=== PATIENT | male | born 1965 | race Caucasian/White ===

== ENCOUNTER → 2016-07-24 | Outpatient (CLI) | payer MEDICARE, OTHER ==
--- NOTE | 2016-07-24 14:26 | MR ---
EXAMINATION TYPE: MR cervical spine wo con DATE OF EXAM: 07/24/2016 1:11 PM COMPARISON: NONE HISTORY: Neck pain, cervicalgia, M54.2 TECHNIQUE: Multiplanar, multisequence images of the cervical spine were acquired. C2-C3: No evidence for degenerative disc disease. No disc bulge/herniation or protrusion. No Canal stenosis. Foramina are patent bilaterally. C3-C4: Foraminal encroachment is present right greater than left due to lateral extension of endplate disc complex. Pressure posterior disc bulge causes mild anterior mass effect on the thecal sac, mild central stenosis. C4-C5: There is a large left posterior paracentral disc herniation. Mass effect is present on the cer vical cord, there is severe central stenosis. Some right-sided foraminal encroachment is noted to the lateral extension of endplate disc complex greater than left. C5-C6: Uncovertebral joint hypertrophy, lateral extension of endplate disc complex causes anterior ma ss effect on the thecal sac, circumferential posterior extension results in some moderate central can al stenosis. Right-sided foraminal encroachment is present greater than left. C6-C7: No evidence for degenerative disc disease. No disc bulge/herniation or protrusion. No Canal stenosis. Foramina are patent bilaterally. C7-T1: No evidence for degenerative disc disease. No disc bulge/herniation or protrusion. No Canal stenosis. There is some facet arthropathy, mild posterior lateral encroachment on the thecal sac. Fo ramina are patent bilaterally. Cervical segments are intact. There is normal alignment. Cervical spinal cord is of normal signal. Craniovertebral junction relationships are within normal limits. There is multilevel spondylosis. C ervical vertebral bodies show preserved height and alignment. Endplate discogenic marrow signal wolf e is present with associated loss of disc height and signal of the intervertebral levels. Thoracic sc oliosis is suspected, due to head tilt of the cervical spine. IMPRESSION: Large posterior, left paracentral disc herniation at C4-5. Severe central canal stenosis. Multilevel degenerative changes and foraminal encroachment as described. Thoracic scoliosis. Additional findings above.
== END | disposition home or self-care (01) ==
LOC: RADMRIMAIN 12:44
PROVIDERS: ATTEND Family Medicine
DX: M48.02 Spinal stenosis, cervical region (principal); M50.221 Other cervical disc displacement at C4-C5 level; M47.812 Spondylosis without myelopathy or radiculopathy, cervical region; M41.9 Scoliosis, unspecified
CPT/HCPCS: 72141

== ENCOUNTER → 2016-09-05 | Outpatient (CLI) | payer MEDICARE, OTHER ==
[~2016-09-05] MED LIST: REGADENOSON 0.4 MG/5 ML SYRINGE IV ONE
--- NOTE | 2016-09-05 12:53 | EST ---
DATE OF SERVICE: 09/05/2016 AGE: 51Y SEX: M HT: 6'3" WT: 260 lbs. Protocol Rigoberto: Other: Lexiscan Cardiolite Stage: Dur. of Exercise: *Heart Rate Blood Pressure *Rest: 100 Rest: 110/77 * *Max. Achieved: 110 Maximum BP: 119/76 85% PMHR: 100% PMHR: *METS: INDICATIONS: MEDICATIONS: Patient was given Lexiscan injection over a period of 15 seconds. Peak heart rate of 110 was achieved. Maximum blood pressure 119/76 mmHg was noted. EKG shows normal sinus rhythm with normal IA interval and QRS duration and normal ST-T waves. No ST segment depression suggestive of ischemia is noted. The results of the nuclear study will follow.
--- NOTE | 2016-09-05 13:35 | NM ---
EXAMINATION TYPE: NM stress lexiscan cardiolite DATE OF EXAM: 09/05/2016 11:27 AM COMPARISON: Prior nuclear medicine cardiac SPECT dated October 2012 HISTORY: Abnormal EKG TECHNIQUE: After the intravenous administration of 10.6 mCi Tc 99m Sestamibi - Cardiolite resting SP ECT images acquired 45 minutes post injection. The patient received 0.4mg Lexiscan, 25.8 mCi Tc 99m Sestamibi - Stress images obtained [address] injection FINDINGS: Review of stress and rest SPECT images demonstrates no distinct perfusion abnormality. Gated analysi s shows normal wall motion with an estimated left ventricular ejection fraction of 58 %. IMPRESSION: No scintigraphic evidence for reversible ischemia.
== END | disposition home or self-care (01) ==
LOC: RADNMMAIN 08:46
PROVIDERS: ATTEND Family Medicine
DX: R94.31 Abnormal electrocardiogram [ECG] [EKG] (principal)
CPT/HCPCS: 93017; 78452; A9500; J2785

== ENCOUNTER 2016-09-11 16:46 | Emergency (ER) | payer MEDICARE, OTHER ==
[2016-09-11] MEDS ORDERED: NALOXONE 0.4 MG/ML 1 ML VIAL IM STA ×2 (17:53→18:38)
--- NOTE | 2016-09-11 18:01 | ED ---
General Adult HPI - General Chief complaint: Extremity Injury, Lower Stated complaint: fall Time Seen by Provider: 09/11/16 17:45 Source: patient, RN notes reviewed Mode of arrival: wheelchair Limitations: no limitations - History of Present Illness Initial comments: Patient's a 51-year-old male who presents emergency room today with chief complaint of injury to the left ankle. History provided by his 's at bedside. Patient currently sleeping in wheelchair. States he had a recent surgery with fusion. States he does take Percocet at home. States he took 2 Percocet. Patient is arousable but very somnolent. Patient has no obvious pain to the left ankle on palpation. he unable answering questions currently. - Related Data Home Medications Medication Instructions Recorded Confirmed DULoxetine HCL [Cymbalta] 60 mg PO BID 12/05/13 09/11/16 QUEtiapine [SEROquel] 800 mg PO HS 12/05/13 09/11/16 Dulaglutide [Trulicity] 0.75 mg SQ TH 01/08/16 09/11/16 Atorvastatin [Lipitor] 20 mg PO DAILY 09/11/16 09/11/16 Dicyclomine [Bentyl] 20 mg PO TID 09/11/16 09/11/16 LORazepam [Ativan] 1 mg PO TID 09/11/16 09/11/16 Levothyroxine Sodium [Synthroid] 150 mcg PO DAILY 09/11/16 09/11/16 Metoprolol Tartrate [Lopressor] 25 mg PO TID 09/11/16 09/11/16 OXcarbazepine [Trileptal] 300 mg PO BID 09/11/16 09/11/16 Omeprazole 20 mg PO DAILY 09/11/16 09/11/16 Ranitidine HCl 300 mg PO HS 09/11/16 09/11/16 metFORMIN HCL [Glucophage] 1,000 mg PO BID 09/11/16 09/11/16 oxyCODONE-APAP 10-325MG [Percocet 1 - 2 tab PO Q4H PRN 09/11/16 09/11/16 10-325 mg] rOPINIRole HCL [Requip] 5 mg PO HS 09/11/16 09/11/16 Previous Rx's Medication Instructions Recorded Insulin Glargine [Lantus] 70 unit SQ DAILY@1400 vial 01/10/16 Pregabalin [Lyrica] 100 mg PO BID cap 01/10/16 Amoxicillin/Potassium Clav 1 each PO Q12HR #20 tab 09/11/16 [Augmentin 875-125 Tablet] Allergies Allergy/AdvReac Type Severity Reaction Status Date / Time ibuprofen [From Motrin] Allergy Mild Confusion Verified 09/11/16 18:46 risperidone [From Risperdal] Allergy Rash/Hives Verified 09/11/16 18:45 Review of Systems ROS Statement: Those systems with pertinent positive or pertinent negative responses have been documented in the HPI. ROS Other: All systems not noted in ROS Statement are negative. 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 Chronic wound to the left foot subsequently healed, heart arrythmia History of Any Multi-Drug Resistant Organisms: MRSA Date of last positivie culture/infection: 01/15/2014 MDRO Source:: Face Past Surgical History: Cholecystectomy, Orthopedic Surgery Additional Past Surgical History / Comment(s): Biopsy OF LUNG NEG, EGD by Dr. Cantu in 2012 showing esophagitis, neck Past Anesthesia/Blood Transfusion Reactions: No Reported Reaction Past Psychological History: ADD/ADHD, Bipolar, Depression Smoking Status: Current every day smoker Past Alcohol Use History: None Reported Additional Past Alcohol Use History / Comment(s): Patient history of smoking up to 3 packs per day and has smoked for over 36 years. Patient denies any alcohol use. He smokes marijuana occasionally. Patient is currently on disability due to his bipolar disorder. Patient is currently living at homewith his girlfriend. He has 4 children with her. Past Drug Use History: Marijuana Additional Drug Use History / Comment(s): pt UDS positive for marijuna, denies use - Past Family History Father Family Medical History: Congestive Heart Failure (CHF) Sister(s) Family Medical History: Congestive Heart Failure (CHF) Brother(s) Additional Family Medical History / Comment(s): He has one half-brother with no major medical problems. Mother Family Medical History: No Reported History, Cancer, Congestive Heart Failure ( CHF) General Exam - General Exam Comments Initial Comments: General: The patient is awake and alert, in no distress, and does not appear acutely ill. Patient sitting a wheelchair slepping. Patient is rales but immediately falls back asleep. Eye: Pupils are equal, round and reactive to light, extra-ocular movements are intact. No nystagmus. There is normal conjunctiva bilaterally. No signs of icterus. Ears, nose, mouth and throat: There are moist mucous membranes and no oral lesions. Neck: The neck is supple, there is no tenderness or JVD. Cardiovascular: There is a regular rate and rhythm. No murmur, rub or gallop is appreciated. Respiratory: Lungs are clear to auscultation, respirations are non-labored, breath sounds are equal. No wheezes, stridor, rales, or rhonchi. Gastrointestinal: Soft, non-distended, non-tender abdomen without masses or organomegaly noted. There is no rebound or guarding present. No CVA tenderness. Bowel sounds are unremarkable. Musculoskeletal: Normal ROM, no tenderness. Strength 5/5.Pulses equal bilaterally 2+. Neurological: There are no obvious motor or sensory deficits. Coordination appears grossly intact. Speech is normal. Skin: Skin is warm and dry and no rashes or lesions are noted. Limitations: no limitations Course Vital Signs 09/11/16 09/11/16 09/11/16 17:09 18:46 18:49 Temperature 98 F 97.8 F Pulse Rate 111 H 76 Respiratory 20 10 L Rate Blood Pressure 98/55 79/53 O2 Sat by Pulse 90 L 88 L 93 L Oximetry 09/11/16 09/11/16 09/11/16 19:05 20:31 21:00 Temperature Pulse Rate 97 68 90 Respiratory 12 16 16 Rate Blood Pressure 101/56 115/70 108/61 O2 Sat by Pulse 93 L 97 97 Oximetry - Reevaluation(s) Reevaluation #1: 09/11/16 18:10 Patient reexamined at this time after 0.4 mg of IM Narcan. Patient wore arousable. Wakes up immediately to voice. Still sleepy and was fall back asleep. at bedside states that she just gave him 2 of his Percocet in the waiting room prior to being seen. States it a 's. States she controls his medication. States does have Ativan the afternoon as well. Patient admits that he rolled left ankle getting out of bed this morning. He states he felt a "pop". Patient admits to pain over the anterior aspect of the ankle. He denies any other symptoms currently. states that he was his normal self throughout the day up until just taking this Percocet became very tired and sleepy. 09/11/16 18:38 Contacted by radiology at this time he did have in the radiology suite perform x -rays. Since having a difficult time is continues fall asleep and unable to hold foot and position. Patient taking Bactrim room will be given 0.4 mg of Narcan once again. 09/11/16 18:50 Patient reexamined at this time after second dose of Narcan. More arousable at this time. Blood pressure currently is 58. Pulse ox didn't only present. Patient started on oxygen here in the emergency room. CT of head and neck along with labs currently pending. Patient will be monitored closely. 09/11/16 22:20 Patient reexamined at this time is alert and awake sitting at bedside. Patient' s laboratory here in the emergency room. Patient has been examined for over 5 hours here in the ER. At this times feeling much better. He states it was calf pain. All sounds was obtained which was negative. X-rays are negative. CT negative for any acute abnormalities shows evidence for sinusitis which she does admit to has congestion. No tenderness over the mastoids. Patient will be discharged home on antibiotics cover for sinus infection. Advised follow-up with his family doctor in surgeon over the next 2 days. Advised return to emergency room if any symptoms increase worsen or for any other concerns. EKG Findings - EKG Comments: EKG Findings:: EKG performed at 191: Shows normal sinus rhythm with incomplete right bundle branch block. Ventricular rate 95 bpm FL interval 192. QRS 110. QT/QTC 358/449. No acute ST change Medical Decision Making - Lab Data Result diagrams: 09/11/16 19:00 09/11/16 19:00 Lab Results 09/11/16 09/11/16 09/11/16 Range/Units 19:00 19:00 19:00 WBC 11.5 H (3.8-10.6) k/uL RBC 4.48 (4.30-5.90) m/uL Hgb 14.2 (13.0-17.5) gm/dL Hct 41.3 (39.0-53.0) % MCV 92.2 (80.0-100.0) fL MCH 31.7 (25.0-35.0) pg MCHC 34.4 (31.0-37.0) g/dL RDW 14.4 (11.5-15.5) % Plt Count 163 (150-450) k/uL Neutrophils % 67 % Lymphocytes % 20 % Monocytes % 7 % Eosinophils % 2 % Basophils % 1 % Neutrophils # 7.7 (1.3-7.7) k/uL Lymphocytes # 2.3 (1.0-4.8) k/uL Monocytes # 0.8 (0-1.0) k/uL Eosinophils # 0.3 (0-0.7) k/uL Basophils # 0.1 (0-0.2) k/uL PT (9.0-12.0) sec INR (<1.1) APTT (22.0-30.0) sec Sodium 139 (137-145) mmol/L Potassium 4.6 (3.5-5.1) mmol/L Chloride 100 (98-107) mmol/L Carbon Dioxide 29 (22-30) mmol/L Anion Gap 10 mmol/L BUN 17 (9-20) mg/dL Creatinine 1.36 H (0.66-1.25) mg/dL Est GFR (MDRD) Af Amer >60 (>60 ml/min/1.73 sqM) Est GFR (MDRD) Non-Af 55 (>60 ml/min/1.73 sqM) Glucose 117 H (74-99) mg/dL Calcium 9.1 (8.4-10.2) mg/dL Total Bilirubin 1.0 (0.2-1.3) mg/dL AST 35 (17-59) U/L ALT 33 (21-72) U/L Alkaline Phosphatase 158 H (38-126) U/L Total Creatine Kinase 111 (55-170) U/L CK-MB (CK-2) 1.2 (0.0-2.4) ng/mL CK-MB (CK-2) Rel Index 1.1 Troponin I <0.012 (0.000-0.034) ng/mL Total Protein 6.8 (6.3-8.2) g/dL Albumin 4.1 (3.5-5.0) g/dL 09/11/16 Range/Units 19:00 WBC (3.8-10.6) k/uL RBC (4.30-5.90) m/uL Hgb (13.0-17.5) gm/dL Hct (39.0-53.0) % MCV (80.0-100.0) fL MCH (25.0-35.0) pg MCHC (31.0-37.0) g/dL RDW (11.5-15.5) % Plt Count (150-450) k/uL Neutrophils % % Lymphocytes % % Monocytes % % Eosinophils % % Basophils % % Neutrophils # (1.3-7.7) k/uL Lymphocytes # (1.0-4.8) k/uL Monocytes # (0-1.0) k/uL Eosinophils # (0-0.7) k/uL Basophils # (0-0.2) k/uL PT 10.7 (9.0-12.0) sec INR 1.1 (<1.1) APTT 22.6 (22.0-30.0) sec Sodium (137-145) mmol/L Potassium (3.5-5.1) mmol/L Chloride (98-107) mmol/L Carbon Dioxide (22-30) mmol/L Anion Gap mmol/L BUN (9-20) mg/dL Creatinine (0.66-1.25) mg/dL Est GFR (MDRD) Af Amer (>60 ml/min/1.73 sqM) Est GFR (MDRD) Non-Af (>60 ml/min/1.73 sqM) Glucose (74-99) mg/dL Calcium (8.4-10.2) mg/dL Total Bilirubin (0.2-1.3) mg/dL AST (17-59) U/L ALT (21-72) U/L Alkaline Phosphatase (38-126) U/L Total Creatine Kinase (55-170) U/L CK-MB (CK-2) (0.0-2.4) ng/mL CK-MB (CK-2) Rel Index Troponin I (0.000-0.034) ng/mL Total Protein (6.3-8.2) g/dL Albumin (3.5-5.0) g/dL Disposition Clinical Impression: Opiate overdose, Acute sinusitis, Leg pain Disposition: HOME SELF-CARE Condition: Good Instructions: Sinusitis (ED) Additional Instructions: Please use only one tab of Percocet every 6 hours. Please follow-up with family doctor in the next 2 days of symptoms have not improved. Please return to emergency room if the symptoms increase or worsen or for any other concerns. Prescriptions: Amoxicillin/Potassium Clav [Augmentin 185-125 Tablet] 1 each PO Q12HR #20 tab Time of Disposition: 22:22
[2016-09-11] MEDS ORDERED: SODIUM CHLORIDE 0.9% 1,000 ML IV STA ×2 (18:56)
[2016-09-11 19:22] LABS: Basophils # (A) 0.1 k/uL (0-0.2); Basophils % (A) 1 %; CH 33.1; CHCM 36.1; Eosinophils # (A) 0.3 k/uL (0-0.7); Eosinophils % (A) 2 %; HCT 41.3 % (39.0-53.0); HDW 3.24; HGB 14.2 gm/dL (13.0-17.5); Luc # (Auto) 0.39; Luc % (Auto) 3; Lymphocytes # (A) 2.3 k/uL (1.0-4.8); Lymphocytes % (A) 20 %; MCH 31.7 pg (25.0-35.0); MCHC 34.4 g/dL (31.0-37.0); MCV 92.2 fL (80.0-100.0); Mean Platelet Volume 7.4; Monocytes # (A) 0.8 k/uL (0-1.0); Monocytes % (A) 7 %; Neutrophils # (A) 7.7 k/uL (1.3-7.7); Neutrophils % (A) 67 %; RBC 4.48 m/uL (4.30-5.90); RDW 14.4 % (11.5-15.5); WBC 11.5 k/uL (3.8-10.6); WBC (Perox) 10.98
[2016-09-11 19:30] LABS: INR 1.1 (<1.1); Partial Thromboplastin Time 22.6 sec (22.0-30.0); Prothrombin Time 10.7 sec (9.0-12.0)
[2016-09-11 19:47] LABS: Creatine Kinase 111 U/L (55-170)
[2016-09-11 19:49] LABS: ALT 33 U/L (21-72); AST 35 U/L (17-59); Alkaline Phosphatase 158 U/L (38-126); Anion Gap 10 mmol/L; Blood Urea Nitrogen 17 mg/dL (9-20); Calcium 9.1 mg/dL (8.4-10.2); Carbon Dioxide 29 mmol/L (22-30); Chloride 100 mmol/L (98-107); Glucose 117 mg/dL (74-99); Non-African American GFR(MDRD) 55 (>60 ml/min/1.73 sqM); Potassium 4.6 mmol/L (3.5-5.1); Sodium 139 mmol/L (137-145); Total Protein 6.8 g/dL (6.3-8.2)
[2016-09-11 20:00] LABS: Creatine Kinase MB 1.2 ng/mL (0.0-2.4); Troponin I <0.012 ng/mL (0.000-0.034)
--- NOTE | 2016-09-11 20:05 | XR ---
EXAMINATION TYPE: XR ankle complete LT DATE OF EXAM: 09/11/2016 8:01 PM COMPARISON: NONE HISTORY: Fall and pain TECHNIQUE: 3 views FINDINGS: Ankle mortise is anatomic. I see no fracture nor dislocation. Subtalar joint is normal. IMPRESSION: Negative left ankle exam.
--- NOTE | 2016-09-11 20:06 | XR ---
EXAMINATION TYPE: XR foot complete LT DATE OF EXAM: 09/11/2016 8:01 PM COMPARISON: NONE HISTORY: Fall and pain TECHNIQUE: 3 views FINDINGS: There is mild hallux valgus. I see no fracture nor dislocation. Metatarsals are intact. IMPRESSION: No acute abnormality of the left foot.
--- NOTE | 2016-09-11 20:09 | XR ---
EXAMINATION TYPE: XR chest 2V DATE OF EXAM: 09/11/2016 8:01 PM COMPARISON: 09/29/2014 HISTORY: Fall and chest pain TECHNIQUE: Frontal and lateral views of the chest are obtained. FINDINGS: There is patchy linear density in the mid lung newsome. Heart size is normal. There is no p neumothorax. There is no heart failure. There are no hilar masses. There is no sign of pleural effusi on. There is apparent old lateral healed right rib fracture. IMPRESSION: Bilateral pulmonary scarring and atelectasis appears worse than old exam. Normal heart. N o pneumothorax.
[2016-09-11 20:31] VITALS: RESP 16
--- NOTE | 2016-09-11 21:08 | CT ---
EXAMINATION TYPE: CT brain rajat lambert DATE OF EXAM: 09/11/2016 8:51 PM COMPARISON: NONE HISTORY: Altered mental status and neck pain. Hx of cervical fusion x2 days ago. CT DLP: 1826.1 mGycm Automated exposure control for dose reduction was used. TECHNIQUE: CT scan of the head and cervical spine are performed without contrast. FINDINGS: There is no evidence of intracranial hemorrhage. There is no mass effect nor midline shif t. Ventricles have normal size. The calvarium is intact. There is mild mucosal thickening in ethmoid air cells. There is incomplete pneumatization of the right mastoid air cells. The cervical vertebra are fairly normal alignment. There is an anterior fusion surgery at C4-5 with a disc prosthesis. There is some narrowing at C5-6 C6-7 disc spaces with spur formation. Facet joints are intact. Skull base is intact. There is no evidence of fracture. IMPRESSION: There is evidence of ethmoid and right side mastoid sinusitis. No acute intracranial abnormality. Spondylotic changes in the lower cervical spine. No fracture seen.
--- NOTE | 2016-09-11 22:04 | US ---
EXAMINATION TYPE: US venous doppler duplex LE LT DATE OF EXAM: 09/11/2016 9:52 PM COMPARISON: Prior in PACS CLINICAL HISTORY: Pain after patient fell this evening . SIDE PERFORMED: Left VESSELS IMAGED: External Iliac Vein (EIV) Common Femoral Vein Deep Femoral Vein Greater Saphenous Vein * Femoral Vein Popliteal Vein Small Saphenous Vein * Proximal Calf Veins (* superficial vessels) TECHNOLOGIST IMPRESSION: Left Leg: Negative for DVT IMPRESSION: Normal exam. No evidence of deep venous thrombosis in the left leg.
[2016-09-11 22:38] VITALS: BP 112/68; PULSE 88; TEMP 98
== END 2016-09-11 22:38 | disposition home or self-care (01) ==
LOC: EC 16:46
DX: T40.2X1A Poisoning by other opioids, accidental (unintentional), initial encounter (principal); J32.2 Chronic ethmoidal sinusitis; M25.572 Pain in left ankle and joints of left foot; E11.9 Type 2 diabetes mellitus without complications; E07.9 Disorder of thyroid, unspecified; F31.9 Bipolar disorder, unspecified; E78.5 Hyperlipidemia, unspecified; I10 Essential (primary) hypertension; G47.33 Obstructive sleep apnea (adult) (pediatric); F17.200 Nicotine dependence, unspecified, uncomplicated; Z88.8 Allergy status to other drugs, medicaments and biological substances; Z79.4 Long term (current) use of insulin; Z86.14 Personal history of Methicillin resistant Staphylococcus aureus infection; Z79.84 Long term (current) use of oral hypoglycemic drugs; Z79.899 Other long term (current) drug therapy; X50.1XXA Overexertion from prolonged static or awkward postures, initial encounter; Y93.89 Activity, other specified; Y92.013 Bedroom of single-family (private) house as the place of occurrence of the external cause
CPT/HCPCS: 36415; 93005; 80053; 82550; 82553; 84484; 85025; 85610; 85730; 71020; 73610; 73630; 93971; 72125; 70450; 99284; 96372 ×2; 96360; 96361 ×2; J2310

== ENCOUNTER 2016-09-12 10:23 | Inpatient (IN) | payer MEDICARE, OTHER ==
--- NOTE | 2016-09-12 11:30 | ED ---
Lower Extremity Injury HPI - General Chief Complaint: Extremity Injury, Lower Stated Complaint: Poss Broken Leg Time Seen by Provider: 09/12/16 11:10 Source: patient, EMS Mode of arrival: EMS Limitations: no limitations - History of Present Illness Initial Comments: 51-year-old male patient with a past medical history significant for cervical fusion on 09/09/2016 is against him and she Department complaining of right lower extremity pain after experiencing a fall at home today. Patient has been mildly weak since the surgery on Thursday and was being assisted to the restroom by his and son when he stumbled and started to fall backwards. His son did keep him from falling to the ground, but during the fall his leg "snapped" and he had immediate onset of pain. She denies any other injuries from fall. He denies any headache, dizziness, chest pain, back pain, abdominal pain, nausea , vomiting. Patient denies any fever, chills, urinary symptoms, constipation, or diarrhea. Patient denies any paresthesias. GCS is 15. - Related Data Home Medications Medication Instructions Recorded Confirmed DULoxetine HCL [Cymbalta] 60 mg PO BID 12/05/13 09/12/16 QUEtiapine [SEROquel] 800 mg PO HS 12/05/13 09/12/16 Dulaglutide [Trulicity] 0.75 mg SQ TH 01/08/16 09/12/16 Atorvastatin [Lipitor] 20 mg PO DAILY 09/11/16 09/12/16 Dicyclomine [Bentyl] 20 mg PO TID 09/11/16 09/12/16 LORazepam [Ativan] 1 mg PO TID 09/11/16 09/12/16 Levothyroxine Sodium [Synthroid] 150 mcg PO DAILY 09/11/16 09/12/16 Metoprolol Tartrate [Lopressor] 25 mg PO TID 09/11/16 09/12/16 OXcarbazepine [Trileptal] 300 mg PO BID 09/11/16 09/12/16 Omeprazole 20 mg PO DAILY 09/11/16 09/12/16 Ranitidine HCl 300 mg PO HS 09/11/16 09/12/16 metFORMIN HCL [Glucophage] 1,000 mg PO BID 09/11/16 09/12/16 oxyCODONE-APAP 10-325MG [Percocet 1 - 2 tab PO Q4H PRN 09/11/16 09/12/16 10-325 mg] rOPINIRole HCL [Requip] 5 mg PO HS 09/11/16 09/12/16 Amoxicillin/Potassium Clav 1 tab PO Q12HR 09/12/16 09/12/16 [Augmentin 875-125 Tablet] Previous Rx's Medication Instructions Recorded Insulin Glargine [Lantus] 70 unit SQ DAILY@1400 vial 01/10/16 Pregabalin [Lyrica] 100 mg PO BID cap 01/10/16 Allergies Allergy/AdvReac Type Severity Reaction Status Date / Time ibuprofen [From Motrin] Allergy Mild Confusion Verified 09/12/16 10:46 risperidone [From Risperdal] Allergy Rash/Hives Verified 09/12/16 10:46 Review of Systems ROS Statement: Those systems with pertinent positive or pertinent negative responses have been documented in the HPI. ROS Other: All systems not noted in ROS Statement are negative. 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 Chronic wound to the left foot subsequently healed, heart arrythmia History of Any Multi-Drug Resistant Organisms: MRSA Date of last positivie culture/infection: 01/15/2014 MDRO Source:: Face Past Surgical History: Cholecystectomy, Orthopedic Surgery Additional Past Surgical History / Comment(s): Biopsy OF LUNG NEG, EGD by Dr. Cantu in 2012 showing esophagitis, neck, C3/C4 fusion Past Anesthesia/Blood Transfusion Reactions: No Reported Reaction Past Psychological History: ADD/ADHD, Bipolar, Depression Smoking Status: Current every day smoker Past Alcohol Use History: None Reported Additional Past Alcohol Use History / Comment(s): Patient history of smoking up to 3 packs per day and has smoked for over 36 years. Patient denies any alcohol use. He smokes marijuana occasionally. Patient is currently on disability due to his bipolar disorder. Patient is currently living at homewith his girlfriend. He has 4 children with her. Past Drug Use History: Marijuana Additional Drug Use History / Comment(s): pt UDS positive for marijuna, denies use - Past Family History Father Family Medical History: Congestive Heart Failure (CHF) Sister(s) Family Medical History: Congestive Heart Failure (CHF) Brother(s) Additional Family Medical History / Comment(s): He has one half-brother with no major medical problems. Mother Family Medical History: No Reported History, Cancer, Congestive Heart Failure ( CHF) General Exam Limitations: no limitations General appearance: alert, in no apparent distress Head exam: Present: atraumatic, normocephalic Eye exam: Present: normal appearance, PERRL Pupils: Present: normal accommodation ENT exam: Present: normal exam, normal oropharynx, mucous membranes moist, TM's normal bilaterally Neck exam: Present: normal inspection, other (Steri-Strips noted to anterior neck incision. Incision exhibits no redness or drainage, and is well approximated.). Absent: tenderness, full ROM, lymphadenopathy Respiratory exam: Present: wheezes (Course expiratory). Absent: respiratory distress, rales, chest wall tenderness, accessory muscle use Cardiovascular Exam: Present: regular rate, normal rhythm, normal heart sounds. Absent: systolic murmur, diastolic murmur, rubs, gallop, clicks GI/Abdominal exam: Present: soft, normal bowel sounds. Absent: distended, tenderness, guarding, rebound, rigid Extremities exam: Present: tenderness (Patient tender over the both the right medial or lateral malleolus. Patient tender over the right tibia and fibula.), normal capillary refill, pedal edema (1+ edema lateral). Absent: full ROM ( Patient unable to extend the right ankle.) Back exam: Present: normal inspection. Absent: tenderness Neurological exam: Present: alert, CN II-XII intact. Absent: oriented X3 (Into to person and place only.) Psychiatric exam: Present: normal mood, flat affect Skin exam: Present: warm, dry, intact Course Vital Signs 09/12/16 10:26 Temperature 97.6 F Pulse Rate 108 H Respiratory 20 Rate Blood Pressure 131/76 O2 Sat by Pulse 93 L Oximetry Procedures - Orthopedic Splinting/Casting Injury #1 Side: right Lower Extremity Injury Location: lower leg Lower Extremity Immobilizer: posterior splint (Right leg, long OCL, neurovascular status intact pre-and post-splinting.) Injury #2 Side: left Lower Extremity Injury Location: lower leg Lower Extremity Immobilizer: posterior splint (Short leg neurovascular intact before and after procedure) Disposition Clinical Impression: Closed multiple fractures of both lower limbs Disposition: ADMITTED IP TO THIS HOSP Condition: Fair
--- NOTE | 2016-09-12 12:22 | XR ---
EXAMINATION TYPE: XR tibia fibula RT DATE OF EXAM: 09/12/2016 12:15 PM COMPARISON: NONE HISTORY: Pain TECHNIQUE: Two views are submitted. FINDINGS: There is a comminuted spiral fracture of the distal diaphysis of the tibia with displacement. There is a comminuted fracture involving the proximal fibula which is only partially imaged. Soft tis javon edema noted. Hypertrophic changes involving the medial malleolus and a well-corticated density involving the later al malleolus suggestive of remote trauma. IMPRESSION: 1. Comminuted displaced proximal fibular fracture. 2. Comminuted spiral fracture distal diaphysis tibia with displacement
--- NOTE | 2016-09-12 12:22 | XR ---
EXAMINATION TYPE: XR ankle complete RT DATE OF EXAM: 09/12/2016 12:15 PM COMPARISON: NONE HISTORY: Pain FINDINGS: Three views of the ankle demonstrate spur extending off the medial malleolus. Well-corticated density involving the distal fibula compatible with previous trauma. There is a spiral fracture of the dista l tibia only partially included on the ankle series. IMPRESSION: 1. Distal displaced tibial fracture
[2016-09-12] MEDS ORDERED: HYDROcodone/APAP 7.5-325MG 1 EACH TAB PO PRN ×2 (13:14)
[2016-09-12] MEDS ORDERED: MORPHINE SULFATE 2 MG/ML SYRINGE IVP STA (13:15)
--- NOTE | 2016-09-12 13:22 | XR ---
EXAMINATION TYPE: XR tibia fibula LT DATE OF EXAM: 09/12/2016 1:12 PM COMPARISON: NONE HISTORY: Pain TECHNIQUE: Two views are submitted. FINDINGS: There is a linear nondisplaced fracture through the proximal diaphysis of the fibula. Remaining osseo us structures intact. IMPRESSION: 1. Linear nondisplaced fracture proximal diaphysis fibula.
[2016-09-12] MEDS ORDERED: NALOXONE 0.4 MG/ML 1 ML VIAL IV PRN (13:38)
[2016-09-12 14:15] LABS: Basophils # (A) 0.1 k/uL (0-0.2); Basophils % (A) 1 %; CH 32.7; CHCM 35.7; Eosinophils # (A) 0.2 k/uL (0-0.7); Eosinophils % (A) 2 %; HCT 39.1 % (39.0-53.0); HDW 3.29; HGB 13.8 gm/dL (13.0-17.5); Luc # (Auto) 0.32; Luc % (Auto) 3; Lymphocytes # (A) 1.1 k/uL (1.0-4.8); Lymphocytes % (A) 11 %; MCH 32.7 pg (25.0-35.0); MCHC 35.4 g/dL (31.0-37.0); MCV 92.4 fL (80.0-100.0); Mean Platelet Volume 7.9; Monocytes # (A) 0.6 k/uL (0-1.0); Monocytes % (A) 6 %; Neutrophils # (A) 7.7 k/uL (1.3-7.7); Neutrophils % (A) 78 %; RBC 4.23 m/uL (4.30-5.90); RDW 14.6 % (11.5-15.5); WBC 9.9 k/uL (3.8-10.6); WBC (Perox) 10.11
[2016-09-12 14:22] LABS: ALT 36 U/L (21-72); AST 44 U/L (17-59); Alkaline Phosphatase 187 U/L (38-126); Anion Gap 12 mmol/L; Blood Urea Nitrogen 15 mg/dL (9-20); Calcium 8.9 mg/dL (8.4-10.2); Carbon Dioxide 27 mmol/L (22-30); Chloride 103 mmol/L (98-107); Glucose 108 mg/dL (74-99); Non-African American GFR(MDRD) >60 (>60 ml/min/1.73 sqM); Potassium 4.2 mmol/L (3.5-5.1); Sodium 142 mmol/L (137-145); Total Bilirubin 1.3 mg/dL (0.2-1.3); Total Protein 6.6 g/dL (6.3-8.2)
[2016-09-12 15:15] VITALS: BMI 32.5
[2016-09-12] MEDS ORDERED: ENOXAPARIN 40 MG/0.4 ML SYRINGE SQ STA (15:23)
[2016-09-12] MEDS: MORPHINE SULFATE 4 MG/ML SYRINGE IV PRN ×2 (15:44→19:39)
[2016-09-12 16:17] LABS: Prothrombin Time 10.2 sec (9.0-12.0)
[2016-09-12 17:22] LABS: Glucose,Whole Blood 99 mg/dL (75-99)
[2016-09-12] MEDS: DICYCLOMINE 20 MG TAB PO SCH ×2 (17:24→22:17)
[2016-09-12] MEDS: METOPROLOL TARTRATE 25 MG TAB PO SCH ×2 (17:24→22:17)
[2016-09-12] MEDS: LORazepam 1 MG TAB PO SCH ×2 (17:24→22:17)
[2016-09-12] MEDS: metFORMIN 500 MG TAB PO SCH (17:25)
[2016-09-12] MEDS: INSULIN LISPRO (humaLOG) 300 UNIT/3 ML VIAL SQ SCH ×2 (17:34→22:15)
[2016-09-12] MEDS: SODIUM CHLORIDE 0.9% 1,000 ML IV SCH (17:34)
[2016-09-12 18:45] LABS: Hemoglobin A1C 7.1 % (4.2-6.1)
[2016-09-12 21:59] LABS: Glucose,Whole Blood 96 mg/dL (75-99)
[2016-09-12] MEDS: DULoxetine HCL 60 MG CAPSULE.DR PO SCH (22:15)
[2016-09-12] MEDS: AMOXIC-POT CLAV 875-125MG 1 EACH TAB PO SCH (22:15)
[2016-09-12] MEDS: FAMOTIDINE 20 MG TAB PO SCH (22:15)
[2016-09-12] MEDS: QUEtiapine 400 MG TAB PO SCH (22:16)
[2016-09-12] MEDS: OXcarbazepine 300 MG TAB PO SCH (22:16)
[2016-09-12] MEDS: PREGABALIN 100 MG CAP PO SCH (22:16)
[2016-09-13] MEDS: oxyCODONE-APAP 10-325MG 1 EACH TAB PO PRN ×3 (00:25→19:55)
[2016-09-13] MEDS: MORPHINE SULFATE 4 MG/ML SYRINGE IV PRN ×3 (01:14→13:41)
[2016-09-13] MEDS: LEVOTHYROXINE 75 MCG TAB PO SCH (05:59)
[2016-09-13 06:54] LABS: Glucose,Whole Blood 122 mg/dL (75-99)
[2016-09-13] MEDS: PANTOPRAZOLE 40 MG TABLET PO SCH (07:34)
[2016-09-13] MEDS: AMOXIC-POT CLAV 875-125MG 1 EACH TAB PO SCH ×2 (07:34→20:55)
[2016-09-13] MEDS: metFORMIN 500 MG TAB PO SCH ×2 (07:34→18:11)
[2016-09-13] MEDS: INSULIN LISPRO (humaLOG) 300 UNIT/3 ML VIAL SQ SCH ×4 (07:34→20:29)
[2016-09-13] MEDS: ATORVASTATIN 20 MG TAB PO SCH (07:34)
[2016-09-13] MEDS: PREGABALIN 100 MG CAP PO SCH ×2 (07:35→20:55)
[2016-09-13] MEDS: LORazepam 1 MG TAB PO SCH ×3 (07:35→23:11)
[2016-09-13] MEDS: DULoxetine HCL 60 MG CAPSULE.DR PO SCH ×2 (07:35→20:19)
[2016-09-13] MEDS: OXcarbazepine 300 MG TAB PO SCH ×2 (07:35→20:18)
[2016-09-13] MEDS: DICYCLOMINE 20 MG TAB PO SCH ×3 (07:35→20:56)
[2016-09-13] MEDS: METOPROLOL TARTRATE 25 MG TAB PO SCH ×3 (07:40→20:19)
[2016-09-13] MEDS ORDERED: MIDAZOLAM 2 MG/2 ML VIAL ONE (08:21)
[2016-09-13] MEDS ORDERED: LACTATED RINGERS 1,000 ML IV ONE (08:21)
[2016-09-13] MEDS ORDERED: fentaNYL (PF) 50 MCG/ML 2 ML AMP ONE (08:21)
[2016-09-13] MEDS ORDERED: SODIUM CHLORIDE 0.9% 50 ML with ceFAZolin 2,000 MG IV ONE ×2 (08:31)
[2016-09-13] MEDS ORDERED: ceFAZolin 1,000 MG in SODIUM CHLORIDE 0.9% 1,000 ML IRRIGATION ONE (08:50)
[2016-09-13] MEDS ORDERED: diphenhydrAMINE 25 MG CAP PO PRN (09:40)
[2016-09-13] MEDS ORDERED: SENNOSIDES-DOCUSATE SODIUM 1 EACH TAB PO PRN (09:40)
--- NOTE | 2016-09-13 10:27 | XR ---
EXAMINATION TYPE: XR tibia fibula RT DATE OF EXAM: 09/13/2016 10:19 AM COMPARISON: 09/12/2016 HISTORY: Postop TECHNIQUE: 2 view submitted FINDINGS: Surgical change noted. IMPRESSION: Postop changes
[2016-09-13 10:38] LABS: Glucose,Whole Blood 124 mg/dL (75-99)
--- NOTE | 2016-09-13 10:58 | P.PN ---
Subjective Patient is currently gone for surgical intervention. Objective - Vital Signs Vital signs: Vital Signs Temp 97.8 F 09/13/16 07:00 Pulse 108 H 09/13/16 07:00 Resp 16 09/13/16 07:00 BP 131/84 09/13/16 07:00 Pulse Ox 93 L 09/13/16 07:00 Intake & Output 09/12/16 09/13/16 09/13/16 18:59 06:59 18:59 Intake Total 240 101 Output Total 700 300 Balance -700 240 -199 Weight 117.934 kg Intake: IV 240 101 Sodium Chloride 0.9% 1, 240 000 ml @ 20 mls/hr IV . Q24H [facility] Rx#:[id number] Output: Urine 700 300 Other: Voiding Method Urinal # Voids 1 1 - Labs CBC & Chem 7: 09/12/16 14:00 09/12/16 14:00 Labs: Abnormal Lab Results - Last 24 Hours (Table) 09/12/16 09/12/16 09/12/16 Range/Units 14:00 14:00 14:00 RBC 4.23 L (4.30-5.90) m/uL Plt Count 149 L (150-450) k/uL Glucose 108 H (74-99) mg/dL POC Glucose (mg/dL) (75-99) mg/dL Hemoglobin A1c 7.1 H (4.2-6.1) % Alkaline Phosphatase 187 H (38-126) U/L 09/13/16 Range/Units 06:51 RBC (4.30-5.90) m/uL Plt Count (150-450) k/uL Glucose (74-99) mg/dL POC Glucose (mg/dL) 122 H (75-99) mg/dL Hemoglobin A1c (4.2-6.1) % Alkaline Phosphatase (38-126) U/L
[2016-09-13 11:10] LABS: Glucose,Whole Blood 136 mg/dL (75-99)
[2016-09-13] MEDS: INSULIN GLARGINE 100 UNIT/ML 10 ML VIAL SQ SCH (15:17)
[2016-09-13] MEDS: ENOXAPARIN 40 MG/0.4 ML SYRINGE SQ SCH (16:25)
[2016-09-13] MEDS ORDERED: HYDROmorphone 1 MG/ML 1 ML SYRINGE IVP PRN ×2 (16:59)
[2016-09-13 17:16] LABS: Glucose,Whole Blood 160 mg/dL (75-99)
[2016-09-13] MEDS: ceFAZolin 2 GM in SODIUM CHLORIDE 0.9% 100 ML IVPB SCH ×2 (17:51→23:28)
[2016-09-13] MEDS: HYDROmorphone 1 MG/ML 1 ML SYRINGE IVP PRN ×2 (17:56→21:00)
[2016-09-13] MEDS: LACTATED RINGERS 1,000 ML IV SCH ×2 (19:21→20:29)
[2016-09-13] MEDS: SODIUM CHLORIDE 0.9% 1,000 ML IV SCH (19:21)
[2016-09-13 20:03] LABS: Glucose,Whole Blood 159 mg/dL (75-99)
[2016-09-13] MEDS: QUEtiapine 400 MG TAB PO SCH ×2 (20:18→20:57)
[2016-09-13] MEDS: FAMOTIDINE 20 MG TAB PO SCH (20:55)
--- NOTE | 2016-09-13 23:16 | P.CONS ---
History of Present Illness - Reason for Consult Consult date: 09/12/16 Medical mgmt. Requesting physician: Wesley Kilgore - Chief Complaint Fracture left Fibia, and Tibia, fall, recent history of cervical spine fusi - History of Present Illness 51-year-old mildly obese male one of Dr. Capone's patient with past medical history of diabetes, hypertension, hyperlipidemia, chronic liver disease , obstructive sleep apnea thyroid problem who had recent cervical spinal fusion who experience severe leg pain after a fall at home today 09/12/2016. Patient apparently has been weeks since surgery on Thursday has been using assisted to walk to the bathroom with his and son every so often he had the fall after he stumbled, he fell backward and felt his leg snap at the time he developed immediate increased pain and discomfort in the leg area was not able to stand up and walk complete weight on it. Patient ended up coming to the emergency department at [facility] where was seen and evaluated x-ray of the neck showed communicative spiral fracture of the distal diathesis of the TB a with displacement of the right side also there is communicative fracture involving the proximal fibula which only partially in the image soft tissue edema is around it. Patient apparently was admitted to the hospital by Dr. Kilgore for possible need surgical intervention for either closed reduction and fixation of open reduction internal fixation. 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 Chronic wound to the left foot subsequently healed, heart arrythmia History of Any Multi-Drug Resistant Organisms: MRSA Year Discovered:: 01/15/2014 MDRO Source:: Face Past Surgical History: Cholecystectomy, Orthopedic Surgery Additional Past Surgical History / Comment(s): Biopsy OF LUNG NEG, EGD by Dr. Cantu in 2012 showing esophagitis, neck, C3/C4 fusion Past Anesthesia/Blood Transfusion Reactions: No Reported Reaction Past Psychological History: ADD/ADHD, Bipolar, Depression Smoking Status: Current every day smoker Past Alcohol Use History: None Reported Additional Past Alcohol Use History / Comment(s): Patient history of smoking up to 3 packs per day and has smoked for over 36 years. Patient denies any alcohol use. He smokes marijuana occasionally. Patient is currently on disability due to his bipolar disorder. Patient is currently living at homewith his girlfriend. He has 4 children with her. Past Drug Use History: Marijuana Additional Drug Use History / Comment(s): pt UDS positive for hannah denies use - Past Family History Father Family Medical History: Congestive Heart Failure (CHF) Sister(s) Family Medical History: Congestive Heart Failure (CHF) Brother(s) Additional Family Medical History / Comment(s): He has one half-brother with no major medical problems. Mother Family Medical History: No Reported History, Cancer, Congestive Heart Failure ( CHF) Medications and Allergies Home Medications Medication Instructions Recorded Confirmed Type DULoxetine HCL [Cymbalta] 60 mg PO BID 12/05/13 09/12/16 History QUEtiapine [SEROquel] 800 mg PO HS 12/05/13 09/12/16 History Dulaglutide [Trulicity] 0.75 mg SQ TH 01/08/16 09/12/16 History Atorvastatin [Lipitor] 20 mg PO DAILY 09/11/16 09/12/16 History Dicyclomine [Bentyl] 20 mg PO TID 09/11/16 09/12/16 History LORazepam [Ativan] 1 mg PO TID 09/11/16 09/12/16 History Levothyroxine Sodium [Synthroid] 150 mcg PO DAILY 09/11/16 09/12/16 History Metoprolol Tartrate [Lopressor] 25 mg PO TID 09/11/16 09/12/16 History OXcarbazepine [Trileptal] 300 mg PO BID 09/11/16 09/12/16 History Omeprazole 20 mg PO DAILY 09/11/16 09/12/16 History Ranitidine HCl 300 mg PO HS 09/11/16 09/12/16 History metFORMIN HCL [Glucophage] 1,000 mg PO BID 09/11/16 09/12/16 History oxyCODONE-APAP 10-325MG [Percocet 1 - 2 tab PO Q4H PRN 09/11/16 09/12/16 History 10-325 mg] rOPINIRole HCL [Requip] 5 mg PO HS 09/11/16 09/12/16 History Amoxicillin/Potassium Clav 1 tab PO Q12HR 09/12/16 09/12/16 History [Augmentin 875-125 Tablet] Allergies Allergy/AdvReac Type Severity Reaction Status Date / Time ibuprofen [From Motrin] Allergy Mild Confusion Verified 09/12/16 10:46 risperidone [From Risperdal] Allergy Rash/Hives Verified 09/12/16 10:46 Physical Exam Vitals: Vital Signs Temp Pulse Resp BP Pulse Ox 09/12/16 14:50 96.9 F L 107 H 16 136/82 95 Intake and Output 09/11/16 09/12/16 09/12/16 22:59 06:59 14:59 Output Total 350 Balance -350 Output: Urine 350 Other: # Voids 1 Results CBC & Chem 7: 09/12/16 14:00 09/12/16 14:00 Labs: Abnormal Lab Results - Last 24 Hours (Table) 09/12/16 09/12/16 Range/Units 14:00 14:00 RBC 4.23 L (4.30-5.90) m/uL Plt Count 149 L (150-450) k/uL Glucose 108 H (74-99) mg/dL Alkaline Phosphatase 187 H (38-126) U/L Assessment and Plan Plan: 1 right sided tibia fracture and fibula fracture, with fracture fibula of the left side: Patient will be admitted to Dr. Kilgore, continue pain management continue bedrest for now with possible initially brace or cast until decision is made whether patient can benefit from surgery. 2 intractable pain in the leg following fall: Continue pain management for now. 3 diabetes: Type II patient has been doing well on Lantus 70 units daily along with Trulicity, and metformin also continue NovoLog with sliding scales coverage. 4 chronic depression with worsening symptoms: Was treated this past year in the inpatient psych were patient has been on Cymbalta 60 mg twice a day along with lorazepam and Seroquel. 5 chronic pain syndrome: Continue patient on hydrocodone along with Lyrica and Ativan. 6 hyperlipidemia: Remain on atorvastatin continue medication. 7 hypothyroidism: Remain on levothyroxine 150 g daily. 8 severe GERD/GI prophylaxis: Patient has been on Zantac and Prilosec. 8 IBS: Patient is doing well on Raymond. 9 arrhythmia: Patient has been on metoprolol 25 mg 3 times a day with good result so far. 10 recent history of URI: Patient was prescribed Augmentin recently. 11 restless leg syndrome: Has been on Requip 5 mg daily at bedtime. 12 post close head injury with no seizure activity: Has been on Trileptal continue medication at 3 in the milligrams twice a day. 13 obstructive sleep apnea: Has been on CPAP. 14 kidney stone with no recurrent attacks. 15 mild amnesia has been slightly better since his last hospitalization. 16 recent history of cervical spine fusion: Ortho [facility]. CODE STATUS: Full code. Expectation from this admission: Patient in the hospital for more than 2 nights.
[2016-09-14] MEDS: HYDROmorphone 1 MG/ML 1 ML SYRINGE IVP PRN ×3 (00:38→12:24)
[2016-09-14] MEDS: oxyCODONE-APAP 10-325MG 1 EACH TAB PO PRN ×4 (03:01→18:46)
[2016-09-14] MEDS: LACTATED RINGERS 1,000 ML IV SCH ×2 (05:19→20:00)
[2016-09-14] MEDS: LEVOTHYROXINE 75 MCG TAB PO SCH (06:01)
[2016-09-14 06:53] LABS: Glucose,Whole Blood 151 mg/dL (75-99)
[2016-09-14 08:00] LABS: Basophils % (A) 0 %; CH 32.9; Eosinophils # (A) 0.1 k/uL (0-0.7); Eosinophils % (A) 1 %; HCT 32.6 % (39.0-53.0); HDW 3.19; HGB 11.2 gm/dL (13.0-17.5); Luc # (Auto) 0.37; Luc % (Auto) 4; Lymphocytes # (A) 1.3 k/uL (1.0-4.8); Lymphocytes % (A) 16 %; MCH 32.4 pg (25.0-35.0); MCHC 34.3 g/dL (31.0-37.0); MCV 94.5 fL (80.0-100.0); Mean Platelet Volume 7.2; Monocytes # (A) 0.7 k/uL (0-1.0); Monocytes % (A) 8 %; Neutrophils # (A) 5.9 k/uL (1.3-7.7); Neutrophils % (A) 71 %; RBC 3.45 m/uL (4.30-5.90); RDW 14.4 % (11.5-15.5); WBC 8.4 k/uL (3.8-10.6); WBC (Perox) 8.89
[2016-09-14] MEDS: ENOXAPARIN 40 MG/0.4 ML SYRINGE SQ SCH (09:03)
[2016-09-14] MEDS: metFORMIN 500 MG TAB PO SCH ×3 (09:04→18:12)
[2016-09-14] MEDS: METOPROLOL TARTRATE 25 MG TAB PO SCH ×3 (09:06→21:22)
[2016-09-14] MEDS: OXcarbazepine 300 MG TAB PO SCH ×2 (09:06→21:22)
[2016-09-14] MEDS: INSULIN LISPRO (humaLOG) 300 UNIT/3 ML VIAL SQ SCH ×4 (09:08→21:29)
--- NOTE | 2016-09-14 09:43 | P.PN ---
Subjective Principal diagnosis: Status post IM livia right tibia Patient is postop day #1 from IM rodding of the right tibia per Dr. Kilgore. He also has a nondisplaced mid fibula fracture on the left. Splint is in place and walking boot has been ordered. He is seen at bedside this morning. His pain is mostly controlled.. He denies any new complaints. He denies numbness or tingling. He denies calf pain. Review of systems is negative for fever, chills, chest pain, shortness of breath, nausea, vomiting, dizziness, headaches , slurred speech or other Objective - Vital Signs Vital signs: Vital Signs Temp 98.6 F 09/14/16 07:32 Pulse 106 H 09/14/16 07:32 Resp 18 09/14/16 07:32 BP 134/66 09/14/16 07:32 Pulse Ox 95 09/14/16 07:32 Intake & Output 09/13/16 09/14/16 09/14/16 17:59 06:59 18:59 Intake Total 0 Output Total 300 Balance -300 Intake: IV Sodium Chloride 0.9% 1, 000 ml @ 20 mls/hr IV . Q24H [facility] Rx#:[id number] Oral 0 Output: Urine 300 Estimated Blood Loss Other: Voiding Method # Voids - Exam Inspection of the lower extremities: Right lower extremity bandage in place with no evidence of active bleeding, dehiscence or drainage. Knee immobilizer in place. Distal lower extremity reveals appropriate color and less than 2 second capillary refill. He's able dorsiflex and plantarflex his ankle and foot. Sensation light touch is intact throughout. Calf is soft and nontender. Left lower extremity reveals splint in place. Appropriate color and less than 2 second cap refill is present distally. Sensation light touch is intact throughout. - Constitutional General appearance: Present: no acute distress - Psychiatric Psychiatric: Present: A&O x's 3, appropriate affect, intact judgment & insight - Labs CBC & Chem 7: 09/14/16 06:57 09/12/16 14:00 Labs: Abnormal Lab Results - Last 24 Hours (Table) 09/13/16 09/13/16 09/13/16 Range/Units 10:34 11:08 17:14 RBC (4.30-5.90) m/uL Hgb (13.0-17.5) gm/dL Hct (39.0-53.0) % POC Glucose (mg/dL) 124 H 136 H 160 H (75-99) mg/dL 09/13/16 09/14/16 09/14/16 Range/Units 20:01 06:50 06:57 RBC 3.45 L (4.30-5.90) m/uL Hgb 11.2 L (13.0-17.5) gm/dL Hct 32.6 L (39.0-53.0) % POC Glucose (mg/dL) 159 H 151 H (75-99) mg/dL Assessment and Plan (1) Closed multiple fractures of both lower limbs Narrative/Plan: He'll continue with routine postop orthopedic protocol including pain management , wound care, physical therapy, DVT prophylaxis and medical management. Continue elevation of the right lower extremity. He is to be nonweightbearing with the right lower extremity. He is awaiting walking boot placement for the left lower extremity which he may be partial weightbearing as tolerated in the boot only. Expect that he will need extended care facility placement for rehabilitation in the next 1-2 days. Status: Acute Time with Patient: Less than 30
[2016-09-14] MEDS: PANTOPRAZOLE 40 MG TABLET PO SCH (10:20)
[2016-09-14] MEDS: LORazepam 1 MG TAB PO SCH ×3 (10:21→22:27)
[2016-09-14] MEDS: ATORVASTATIN 20 MG TAB PO SCH (10:21)
[2016-09-14] MEDS: AMOXIC-POT CLAV 875-125MG 1 EACH TAB PO SCH ×2 (10:21→22:26)
[2016-09-14] MEDS: DICYCLOMINE 20 MG TAB PO SCH ×3 (10:21→22:27)
[2016-09-14] MEDS: DULoxetine HCL 60 MG CAPSULE.DR PO SCH ×2 (10:21→21:22)
[2016-09-14] MEDS: PREGABALIN 100 MG CAP PO SCH ×2 (10:22→22:26)
--- NOTE | 2016-09-14 10:39 | P.PN ---
Subjective 51-year-old mildly obese male one of Dr. Capone's patient with past medical history of diabetes, hypertension, hyperlipidemia, chronic liver disease , obstructive sleep apnea thyroid problem who had recent cervical spinal fusion who experience severe leg pain after a fall at home today 09/12/2016. Patient apparently has been weeks since surgery on Thursday has been using assisted to walk to the bathroom with his and son every so often he had the fall after he stumbled, he fell backward and felt his leg snap at the time he developed immediate increased pain and discomfort in the leg area was not able to stand up and walk complete weight on it. Patient ended up coming to the emergency department at [facility] where was seen and evaluated x-ray of the neck showed communicative spiral fracture of the distal diathesis of the TB a with displacement of the right side also there is communicative fracture involving the proximal fibula which only partially in the image soft tissue edema is around it. Patient apparently was admitted to the hospital by Dr. Kilgore for possible need surgical intervention for either closed reduction and fixation of open reduction internal fixation. 09/14: Patient is status post IM rodding on the right tibial fracture done yesterday with Dr. Kilgore. He has a knee immobilizer in place on the right side and OC also splint on the left with plan for walking boot. Patient is nonweightbearing on the right side and partial weightbearing on the left. Patient did have some dysphagia yesterday thought to be due to recent cervical fusion. Dysphagia is much improved this morning and patient denies having any difficulty swallowing or coughing with swallowing. Objective - Vital Signs Vital signs: Vital Signs Temp 98.6 F 09/14/16 07:32 Pulse 106 H 09/14/16 07:32 Resp 18 09/14/16 07:32 BP 134/66 09/14/16 07:32 Pulse Ox 95 09/14/16 07:32 Intake & Output 09/13/16 09/14/16 09/14/16 17:59 06:59 18:59 Intake Total 0 Output Total 300 Balance -300 Intake: IV Sodium Chloride 0.9% 1, 000 ml @ 20 mls/hr IV . Q24H [facility] Rx#:[id number] Oral 0 Output: Urine 300 Estimated Blood Loss Other: Voiding Method # Voids - Labs CBC & Chem 7: 09/14/16 06:57 09/12/16 14:00 Labs: Abnormal Lab Results - Last 24 Hours (Table) 09/13/16 09/13/16 09/13/16 Range/Units 10:34 11:08 17:14 RBC (4.30-5.90) m/uL Hgb (13.0-17.5) gm/dL Hct (39.0-53.0) % POC Glucose (mg/dL) 124 H 136 H 160 H (75-99) mg/dL 09/13/16 09/14/16 09/14/16 Range/Units 20:01 06:50 06:57 RBC 3.45 L (4.30-5.90) m/uL Hgb 11.2 L (13.0-17.5) gm/dL Hct 32.6 L (39.0-53.0) % POC Glucose (mg/dL) 159 H 151 H (75-99) mg/dL Assessment and Plan Plan: 1 right sided tibia fracture and fibula fracture status post IM rodding, with left-sided fibula fracture. She is nonweightbearing on the right leg and partial weightbearing on the left once walking boot is obtained. OCL splint in place. 2 intractable pain in the leg following fall: Continue pain management for now. 3 diabetes: Type II patient has been doing well on Lantus 70 units daily along with Trulicity, and metformin also continue NovoLog with sliding scales coverage. 4 chronic depression recurrent with worsening symptoms: Was treated this past year in the inpatient psych were patient has been on Cymbalta 60 mg twice a day along with lorazepam and Seroquel. 5 chronic pain syndrome: Continue patient on hydrocodone along with Lyrica and Ativan. 6 hyperlipidemia: Remain on atorvastatin continue medication. 7 hypothyroidism: Remain on levothyroxine 150 g daily. 8 severe GERD/GI prophylaxis: Patient has been on Zantac and Prilosec. 8 IBS: Patient is doing well on Raymond. 9 arrhythmia: Patient has been on metoprolol 25 mg 3 times a day with good result so far. 10 recent history of URI: Patient was prescribed Augmentin recently. 11 restless leg syndrome: Has been on Requip 5 mg daily at bedtime. 12 post close head injury with no seizure activity: Has been on [facility] 13 obstructive sleep apnea: Has been on CPAP. 14 kidney stone with no recurrent attacks. 15 mild amnesia has been slightly better since his last hospitalization. 16 recent history of cervical spine fusion. 17 dysphagia following tibial surgery most likely due to recent cervical spine surgery and affects of anesthesia. CODE STATUS: Full code. Discharge plan: To be determined Impression and plan of care have been directed as dictated by the signing physician. Ivelisse Ferguson nurse practitioner acting as scribe for signing physician. Time with Patient: Greater than 30
[2016-09-14 11:18] LABS: Glucose,Whole Blood 160 mg/dL (75-99)
--- NOTE | 2016-09-14 12:06 | FL ---
EXAMINATION TYPE: FL guidance operating room DATE OF EXAM: 09/13/2016 10:19 AM CLINICAL HISTORY: Right leg fracture. TECHNIQUE: Fluoroscopy. COMPARISON: None. FINDINGS: Fluoroscopic guidance was provided during open reduction internal fixation procedure perfo rmed by Dr. Kilgore. A total of 63 seconds of fluoroscopic time was utilized during the procedure and 6 intraoperative spot images are acquired. Images acquired show placement of large intramedullary livia fracture deformity distal tibial diaphysis . IMPRESSION: As Above.
[2016-09-14] MEDS ORDERED: oxyCODONE-APAP 10-325MG 1 EACH TAB PO PRN (15:44)
[2016-09-14] MEDS: INSULIN GLARGINE 100 UNIT/ML 10 ML VIAL SQ SCH (15:53)
[2016-09-14 17:08] LABS: Glucose,Whole Blood 165 mg/dL (75-99)
[2016-09-14] MEDS: SODIUM CHLORIDE 0.9% 1,000 ML IV SCH (20:00)
[2016-09-14 20:54] LABS: Glucose,Whole Blood 172 mg/dL (75-99)
[2016-09-14] MEDS: QUEtiapine 400 MG TAB PO SCH (21:22)
[2016-09-14] MEDS: FAMOTIDINE 20 MG TAB PO SCH (22:26)
[2016-09-15] MEDS: oxyCODONE-APAP 10-325MG 1 EACH TAB PO PRN ×3 (01:59→14:50)
[2016-09-15] MEDS: LACTATED RINGERS 1,000 ML IV SCH ×3 (02:05→23:41)
[2016-09-15] MEDS: LEVOTHYROXINE 75 MCG TAB PO SCH (05:49)
[2016-09-15 07:08] LABS: Glucose,Whole Blood 145 mg/dL (75-99)
[2016-09-15] MEDS: ENOXAPARIN 40 MG/0.4 ML SYRINGE SQ SCH (08:19)
[2016-09-15] MEDS: METOPROLOL TARTRATE 25 MG TAB PO SCH ×3 (08:19→20:16)
[2016-09-15] MEDS: metFORMIN 500 MG TAB PO SCH ×2 (08:19→18:04)
[2016-09-15] MEDS: AMOXIC-POT CLAV 875-125MG 1 EACH TAB PO SCH ×2 (08:20→20:16)
[2016-09-15] MEDS: DICYCLOMINE 20 MG TAB PO SCH ×3 (08:20→20:16)
[2016-09-15] MEDS: DULoxetine HCL 60 MG CAPSULE.DR PO SCH ×2 (08:20→20:17)
[2016-09-15] MEDS: LORazepam 1 MG TAB PO SCH ×3 (08:20→20:26)
[2016-09-15] MEDS: ATORVASTATIN 20 MG TAB PO SCH (08:20)
[2016-09-15] MEDS: PANTOPRAZOLE 40 MG TABLET PO SCH (08:21)
[2016-09-15] MEDS: PREGABALIN 100 MG CAP PO SCH ×2 (08:21→20:18)
[2016-09-15] MEDS: OXcarbazepine 300 MG TAB PO SCH ×2 (08:21→20:18)
[2016-09-15] MEDS: INSULIN LISPRO (humaLOG) 300 UNIT/3 ML VIAL SQ SCH ×4 (08:23→23:38)
--- NOTE | 2016-09-15 09:02 | P.PN ---
Subjective Principal diagnosis: Status post right tibia IM livia The patient is a 51-year-old male who is status post IM rodding of the right tibia. Today is postoperative day #2. The patient also has a nondisplaced midshaft fibular fracture on the left. The patient currently has a splint to the left lower extremity and is awaiting a premium equalizer boot. A knee immobilizer is in place on the right. The patient was seen and evaluated at the bedside this morning. He states his pain is controlled at this time. He denies nausea, vomiting, abdominal pain, shortness breath, chest pain this morning. The patient has not been up with physical therapy because we are waiting boot delivery. Objective - Vital Signs Vital signs: Vital Signs Temp 97.3 F L 09/15/16 08:24 Pulse 110 H 09/15/16 08:24 Resp 16 09/15/16 08:24 BP 122/64 09/15/16 08:24 Pulse Ox 95 09/15/16 08:24 Intake & Output 09/14/16 09/15/16 09/15/16 18:59 06:59 18:59 Intake Total 600 400 Output Total 300 Balance 300 400 Intake: IV 600 Sodium Chloride 0.9% 1, 600 000 ml @ 20 mls/hr IV . Q24H [facility] Rx#:[id number] Oral 0 400 Output: Urine 300 Other: Voiding Method Urinal - Exam The patient does not appear in acute distress. Alert and orientated x3. Dressing is clean dry and intact to the right lower extremity with knee immoblizer. Splint to left lower extremity is intact. He is able to wiggle his toes without significant pain.Sensation and circulatory status is intact. - Labs CBC & Chem 7: 09/14/16 06:57 09/12/16 14:00 Labs: Abnormal Lab Results - Last 24 Hours (Table) 09/14/16 09/14/16 09/14/16 Range/Units 11:17 17:06 20:53 POC Glucose (mg/dL) 160 H 165 H 172 H (75-99) mg/dL 09/15/16 Range/Units 07:06 POC Glucose (mg/dL) 145 H (75-99) mg/dL Assessment and Plan (1) Closed multiple fractures of both lower limbs Status: Acute Plan: The clinical findings were discussed with the patient. A prescription for a premium equalizer boot was placed in the chart and will be obtained today. The patient may partially weight-bear as tolerated to the left lower extremity with boot on and nonweightbearing to the right lower extremity. Continue knee immobilizer to right lower extremity. Physical therapy is on hold until boot is obtained. Continue pain control. The patient will need skilled rehabilitation upon discharge.The patient may be discharged to skilled rehabilitation once arrangements have been made and boot has been obtained.
--- NOTE | 2016-09-15 11:53 | XR ---
EXAMINATION TYPE: XR chest 1V DATE OF EXAM: 09/15/2016 10:58 AM COMPARISON: 09/11/2016 HISTORY: ECF placed TECHNIQUE: Single frontal view of the chest is obtained. FINDINGS: Subsegmental linear changes at both lung bases suggestive of scar or atelectasis. Hyperinf lation suggests COPD. No pneumothorax or pleural effusion. Heart size stable. IMPRESSION: 1. Basilar atelectasis favored over infiltrate. 2. Correlate for COPD
[2016-09-15 12:09] LABS: Glucose,Whole Blood 159 mg/dL (75-99)
--- NOTE | 2016-09-15 12:55 | P.PN ---
Subjective 51-year-old mildly obese male one of Dr. Capone's patient with past medical history of diabetes, hypertension, hyperlipidemia, chronic liver disease , obstructive sleep apnea thyroid problem who had recent cervical spinal fusion who experience severe leg pain after a fall at home today 09/12/2016. Patient apparently has been weeks since surgery on Thursday has been using assisted to walk to the bathroom with his and son every so often he had the fall after he stumbled, he fell backward and felt his leg snap at the time he developed immediate increased pain and discomfort in the leg area was not able to stand up and walk complete weight on it. Patient ended up coming to the emergency department at [facility] where was seen and evaluated x-ray of the neck showed communicative spiral fracture of the distal diathesis of the TB a with displacement of the right side also there is communicative fracture involving the proximal fibula which only partially in the image soft tissue edema is around it. Patient apparently was admitted to the hospital by Dr. Kilgore for possible need surgical intervention for either closed reduction and fixation of open reduction internal fixation. 09/14: Patient is status post IM rodding on the right tibial fracture done yesterday with Dr. Kilgore. He has a knee immobilizer in place on the right side and OC also splint on the left with plan for walking boot. Patient is nonweightbearing on the right side and partial weightbearing on the left. Patient did have some dysphagia yesterday thought to be due to recent cervical fusion. Dysphagia is much improved this morning and patient denies having any difficulty swallowing or coughing with swallowing. 09/15: orthopedics has recommended subacute rehab. Patient is working with social work/case management for [facility].no new concerns. Anticipate discharge by tomorrow. Boot has been ordered. Objective - Vital Signs Vital signs: Vital Signs Temp 97.3 F L 09/15/16 08:24 Pulse 110 H 09/15/16 08:24 Resp 16 09/15/16 08:24 BP 122/64 09/15/16 08:24 Pulse Ox 95 09/15/16 08:24 Intake & Output 09/14/16 09/15/16 09/15/16 18:59 06:59 18:59 Intake Total 600 400 Output Total 300 150 Balance 300 400 -150 Intake: IV 600 Sodium Chloride 0.9% 1, 600 000 ml @ 20 mls/hr IV . Q24H [facility] Rx#:[id number] Oral 0 400 Output: Urine 300 150 Other: Voiding Method Urinal Urinal - Exam Gen: This is a morbidly obese 51-year-old male. He is seen sitting up in bed and appears to be in no acute distress. HEENT: Head is atraumatic, normocephalic. Pupils equal, round. Sclerae is anicteric. NECK: Supple. No JVD. No lymphadenopathy. No thyromegaly. LUNGS: Clear to auscultation. No wheezes or rhonchi. No intercostal retractions. HEART: Regular rate and rhythm. Systolic murmur. ABDOMEN: Morbidly obese. Soft. Bowel sounds are present. No masses. No tenderness. EXTREMITIES: Trace pedal edema. No calf tenderness.right knee immobilizer in place. Left OCL splint in place. NEUROLOGICAL: Patient is awake, alert and oriented x3. Cranial nerves 2 through 12 are grossly intact. - Labs CBC & Chem 7: 09/14/16 06:57 09/12/16 14:00 Labs: Abnormal Lab Results - Last 24 Hours (Table) 09/14/16 09/14/16 09/15/16 Range/Units 17:06 20:53 07:06 POC Glucose (mg/dL) 165 H 172 H 145 H (75-99) mg/dL 09/15/16 Range/Units 12:07 POC Glucose (mg/dL) 159 H (75-99) mg/dL Assessment and Plan Plan: 1 right sided tibia fracture and fibula fracture status post IM rodding, with left-sided fibula fracture. She is nonweightbearing on the right leg and partial weightbearing on the left once walking boot is obtained. OCL splint in place. 2 intractable pain in the leg following fall: Continue pain management for now. 3 diabetes: Type II patient has been doing well on Lantus 70 units daily along with Trulicity, and metformin also continue NovoLog with sliding scales coverage. 4 chronic depression recurrent with worsening symptoms: Was treated this past year in the inpatient psych were patient has been on Cymbalta 60 mg twice a day along with lorazepam and Seroquel. 5 chronic pain syndrome: Continue patient on hydrocodone along with Lyrica and Ativan. 6 hyperlipidemia: Remain on atorvastatin continue medication. 7 hypothyroidism: Remain on levothyroxine 150 g daily. 8 severe GERD/GI prophylaxis: Patient has been on Zantac and Prilosec. 8 IBS: Patient is doing well on Raymond. 9 arrhythmia: Patient has been on metoprolol 25 mg 3 times a day with good result so far. 10 recent history of URI: Patient was prescribed Augmentin recently. 11 restless leg syndrome: Has been on Requip 5 mg daily at bedtime. 12 post close head injury with no seizure activity: Has been on Trileptal continue medication at 3 in the milligrams twice a day. 13 obstructive sleep apnea: Has been on CPAP. 14 kidney stone with no recurrent attacks. 15 mild amnesia has been slightly better since his last hospitalization. 16 recent history of cervical spine fusion. 17 dysphagia following tibial surgery most likely due to recent cervical spine surgery and affects of anesthesia. CODE STATUS: Full code. Discharge plan: [facility] or [facility] tomorrow Impression and plan of care have been directed as dictated by the signing physician. Ivelisse Ferguson nurse practitioner acting as scribe for signing physician. Time with Patient: Greater than 30
[2016-09-15] MEDS: INSULIN GLARGINE 100 UNIT/ML 10 ML VIAL SQ SCH (13:23)
[2016-09-15 17:19] LABS: Glucose,Whole Blood 144 mg/dL (75-99)
[2016-09-15] MEDS: FAMOTIDINE 20 MG TAB PO SCH (20:17)
[2016-09-15] MEDS: QUEtiapine 400 MG TAB PO SCH (20:18)
[2016-09-15 20:47] LABS: Glucose,Whole Blood 118 mg/dL (75-99)
--- NOTE | 2016-09-15 22:15 | OP ---
DATE OF SERVICE: 09/13/2016 SURGEON: SANDHYA ESPINOSA DO DATA [employer] SOFTWARE CONSULTANT: ALLAN MEDINA PA-C PREOPERATIVE DIAGNOSIS: Three part oblique fracture of the right tibia mid and distal third with fracture of the proximal right fibula POSTOPERATIVE DIAGNOSIS: Three part oblique fracture of the right tibia mid and distal third with fracture of the proximal right fibula. OPERATION: Closed reduction with IM nail of a three part fracture of the mid and distal third of the right tibia. ANESTHESIA: ESTIMATED BLOOD LOSS: SPECIMENS REMOVED: COMPLICATIONS: OPERATIVE FINDINGS: DESCRIPTION OF PROCEDURE: The patient was taken to the operating room and placed in supine position. General anesthesia was performed by the Department of Anesthesiology. Betadine prep was carried out over the right knee from the mid-thigh to the foot. Sterile drapes applied in the usual manner. The pneumatic tourniquet was inflated to 350 mmHg. With the knee in a flexed position, C arm xray was maneuvered into appropriate position. A medial infra patellar tendon a parallel incision was made through the subcutaneous tissue. The periosteum was is elevated. A bone awl was utilized in preparing the proximal canal. The guidewire was inserted and maneuvered through the distal fracture. Excellent lateral reduction fracture was noted. The x-rays were obtained documenting position of the guidewire within the intramedullary canal. Blunt tip reamer was used to carry out for the tibia for a size 11 intramedullary livia. The guide wire was then measured and the size11, 36 mm femur for fixation. The final livia was then placed over the guidewire and then packed into position in both distal and proximal. Xray documented reduction of fracture. The proximal locking screw was inserted proximally. The distal locking screw was approached. The locking screw was positioned. The 34 mm screw inserted through fractured distally. The area was irrigated. Inspection of fracture was noted. The distal incision site was approximated with 2-0 Vicryl suture. The skin was approximated with skin clips. The proximal incision was approximated with #1 Vicryl suture. The subcutaneous tissue approximated with 2-0 Vicryl. Skin approximated with skin clips. The lateral puncture wound approximated and secured with skin clips. Betadine, Adaptic and sterile pressure dressing was applied. The knee immobilized. Pneumatic tourniquet was deflated. Transferred to the recovery room in satisfactory postop condition. GROSS PATHOLOGY: There was evidence of a three part oblique fracture of the proximal right tibia. MTDD
[2016-09-15] MEDS: SODIUM CHLORIDE 0.9% 1,000 ML IV SCH (23:40)
[2016-09-16] MEDS: oxyCODONE-APAP 10-325MG 1 EACH TAB PO PRN ×3 (01:53→15:17)
[2016-09-16] MEDS: LEVOTHYROXINE 75 MCG TAB PO SCH (05:24)
[2016-09-16 07:15] LABS: Glucose,Whole Blood 125 mg/dL (75-99)
[2016-09-16 07:33] VITALS: BP 119/77; PULSE 99; RESP 16; TEMP 98.4
[2016-09-16] MEDS: AMOXIC-POT CLAV 875-125MG 1 EACH TAB PO SCH (08:17)
[2016-09-16] MEDS: DULoxetine HCL 60 MG CAPSULE.DR PO SCH (08:17)
[2016-09-16] MEDS: METOPROLOL TARTRATE 25 MG TAB PO SCH ×2 (08:18→16:47)
[2016-09-16] MEDS: DICYCLOMINE 20 MG TAB PO SCH ×2 (08:18→16:46)
[2016-09-16] MEDS: metFORMIN 500 MG TAB PO SCH (08:18)
[2016-09-16] MEDS: LACTATED RINGERS 1,000 ML IV SCH (08:19)
[2016-09-16] MEDS: INSULIN LISPRO (humaLOG) 300 UNIT/3 ML VIAL SQ SCH ×2 (08:19→15:19)
[2016-09-16] MEDS: ENOXAPARIN 40 MG/0.4 ML SYRINGE SQ SCH (08:19)
[2016-09-16] MEDS: ATORVASTATIN 20 MG TAB PO SCH (08:19)
[2016-09-16] MEDS: PANTOPRAZOLE 40 MG TABLET PO SCH (08:19)
[2016-09-16] MEDS: PREGABALIN 100 MG CAP PO SCH (08:20)
[2016-09-16] MEDS: LORazepam 1 MG TAB PO SCH ×2 (08:20→10:12)
[2016-09-16] MEDS: OXcarbazepine 300 MG TAB PO SCH (08:20)
--- NOTE | 2016-09-16 09:04 | P.DS ---
Providers Date of admission: 09/12/16 13:42 Expected date of discharge: 09/16/16 Attending physician: Wesley Kilgore Primary care physician: Faith Olivera - Discharge Diagnosis(es) (1) Closed multiple fractures of both lower limbs Current Visit: Yes Status: Acute Priority: Medium Hospital Course: The patient is a 51-year-old male who presented to the emergency department at [facility] after sustaining a fall at home. He was found to have a displaced tibia fracture and a comminuted proximal fibula fracture on the right leg and a nondisplaced fibula fracture on the left. The patient was cleared by medical management and underwent a IM rodding of the right tibia on 09/13/[address] Kilgore. Closed nonoperative treatment was recommended to the left lower extremity in the form of a premium equalizer boot. The patient is currently in a knee immobilizer on the right lower extremity and has maintained nonweightbearing. He is partial weightbearing as tolerated to the left lower extremity with boot on. The patient has done well postoperatively. The patient was seen and evaluated at bedside today and denies any new complaints. Pain is reasonably controlled. Dressing is clean dry and intact. Incision looks fine with no erythema or active drainage. Calf is soft and nontender. The patient is able to wiggle his toes bilaterally. Patient's bilateral lower extremity is neurovascular intact. Patient is orthopedically stable for discharge to skilled rehab today. See medication reconciliation for accurate list of discharge medications. Pertinent Studies: Laboratory Tests 09/14/16 06:57 WBC 8.4 RBC 3.45 L Hgb 11.2 L Hct 32.6 L Patient Condition at Discharge: Fair Plan - Discharge Summary New Discharge Prescriptions: HYDROcodone/APAP 7.5-325MG [[place] 7.5-325] 1 - 2 tab PO Q4-6H PRN #60 tab PRN Reason: Pain Sennosides-Docusate Sodium [Senokot-S] 2 tab PO DAILY #30 tablet Discharge Medication List DULoxetine HCL [Cymbalta] 60 mg PO BID 12/05/13 [History] QUEtiapine [SEROquel] 800 mg PO HS 12/05/13 [History] Dulaglutide [Trulicity] 0.75 mg SQ TH 01/08/16 [History] Insulin Glargine [Lantus] 70 unit SQ DAILY@1400 vial 01/10/16 [Rx] Pregabalin [Lyrica] 100 mg PO BID cap 01/10/16 [Rx] Atorvastatin [Lipitor] 20 mg PO DAILY 09/11/16 [History] Dicyclomine [Bentyl] 20 mg PO TID 09/11/16 [History] LORazepam [Ativan] 1 mg PO TID 09/11/16 [History] Levothyroxine Sodium [Synthroid] 150 mcg PO DAILY 09/11/16 [History] Metoprolol Tartrate [Lopressor] 25 mg PO TID 09/11/16 [History] OXcarbazepine [Trileptal] 300 mg PO BID 09/11/16 [History] Omeprazole 20 mg PO DAILY 09/11/16 [History] Ranitidine HCl 300 mg PO HS 09/11/16 [History] metFORMIN HCL [Glucophage] 1,000 mg PO BID 09/11/16 [History] oxyCODONE-APAP 10-325MG [Percocet 10-325 mg] 1 - 2 tab PO Q4H PRN 09/11/16 [ History] rOPINIRole HCL [Requip] 5 mg PO HS 09/11/16 [History] Amoxicillin/Potassium Clav [Augmentin 875-125 Tablet] 1 tab PO Q12HR 09/12/16 [ History] HYDROcodone/APAP 7.5-325MG [[place] 7.5-325] 1 - 2 tab PO Q4-6H PRN #60 tab [Rx] Sennosides-Docusate Sodium [Senokot-S] 2 tab PO DAILY #30 tablet 09/16/16 [Rx] Follow up Appointment(s)/Referral(s): Wesley Kilgore DO [Doctor of Osteopathic Medicine] - 2 Weeks Faith Olivera MD [Primary Care Provider] - 1-2 days Activity/Diet/Wound Care/Special Instructions: Change dressing to right lower extremity daily Keep immoblizer to right leg in place Premium boot to left lower extremity Non-weightbearing to the right lower extremity Partial weightbearing as tolerated to the left lower extremity with boot on Elevate and ice Anticoagulation per medical management Follow up with Dr. Kilgore in 2 weeks [facility] with any questions or concerns, . Discharge Disposition: TRANSFER TO SNF/ECF
[2016-09-16 11:31] LABS: Glucose,Whole Blood 141 mg/dL (75-99)
--- NOTE | 2016-09-16 14:39 | P.PN ---
Subjective 51-year-old mildly obese male one of Dr. Capone's patient with past medical history of diabetes, hypertension, hyperlipidemia, chronic liver disease , obstructive sleep apnea thyroid problem who had recent cervical spinal fusion who experience severe leg pain after a fall at home today 09/12/2016. Patient apparently has been weeks since surgery on Thursday has been using assisted to walk to the bathroom with his and son every so often he had the fall after he stumbled, he fell backward and felt his leg snap at the time he developed immediate increased pain and discomfort in the leg area was not able to stand up and walk complete weight on it. Patient ended up coming to the emergency department at [facility] where was seen and evaluated x-ray of the neck showed communicative spiral fracture of the distal diathesis of the TB a with displacement of the right side also there is communicative fracture involving the proximal fibula which only partially in the image soft tissue edema is around it. Patient apparently was admitted to the hospital by Dr. Kilgore for possible need surgical intervention for either closed reduction and fixation of open reduction internal fixation. 09/14: Patient is status post IM rodding on the right tibial fracture done yesterday with Dr. Kilgore. He has a knee immobilizer in place on the right side and OC also splint on the left with plan for walking boot. Patient is nonweightbearing on the right side and partial weightbearing on the left. Patient did have some dysphagia yesterday thought to be due to recent cervical fusion. Dysphagia is much improved this morning and patient denies having any difficulty swallowing or coughing with swallowing. 09/15: orthopedics has recommended subacute rehab. Patient is working with social work/case management for [facility].no new concerns. Anticipate discharge by tomorrow. Boot has been ordered. 09/16: Patient is being prepared [facility] Medication reconciliation has been completed. Patient will continue on Lovenox as a bridge with Coumadin. [facility] by Dr. Byrne. Patient is being discharged in stable condition. Objective - Vital Signs Vital signs: Vital Signs Temp 98.4 F 09/16/16 07:32 Pulse 99 09/16/16 07:32 Resp 16 09/16/16 07:32 BP 119/77 09/16/16 07:32 Pulse Ox 94 L 09/16/16 07:32 Intake & Output 09/15/16 09/16/16 09/16/16 18:59 06:59 18:59 Intake Total 825 600 360 Output Total 150 400 Balance 675 200 360 Intake: Intake, IV Titration 800 600 Amount Lactated Ringers 1,000 ml 800 600 @ 100 mls/hr IV .Q10H [facility] Rx#:[id number] Oral 25 360 Output: Urine 150 400 Other: Voiding Method Urinal Urinal Urinal # Voids 4 2 - Exam Gen: This is a morbidly obese 51-year-old male. He is seen sitting up in bed and appears to be in no acute distress. HEENT: Head is atraumatic, normocephalic. Pupils equal, round. Sclerae is anicteric. NECK: Supple. No JVD. No lymphadenopathy. No thyromegaly. LUNGS: Clear to auscultation. No wheezes or rhonchi. No intercostal retractions. HEART: Regular rate and rhythm. Systolic murmur. ABDOMEN: Morbidly obese. Soft. Bowel sounds are present. No masses. No tenderness. EXTREMITIES: Trace pedal edema. No calf tenderness.right knee immobilizer in place. Left OCL splint in place. NEUROLOGICAL: Patient is awake, alert and oriented x3. Cranial nerves 2 through 12 are grossly intact. - Labs CBC & Chem 7: 09/14/16 06:57 09/12/16 14:00 Labs: Abnormal Lab Results - Last 24 Hours (Table) 09/15/16 09/15/16 09/15/16 Range/Units 12:07 17:17 20:09 POC Glucose (mg/dL) 159 H 144 H 118 H (75-99) mg/dL 09/16/16 Range/Units 07:13 POC Glucose (mg/dL) 125 H (75-99) mg/dL Assessment and Plan Plan: 1 right sided tibia fracture and fibula fracture status post IM rodding, with left-sided fibula fracture. She is nonweightbearing on the right leg and partial weightbearing on the left once walking boot is obtained. OCL splint in place. 2 intractable pain in the leg following fall: Continue pain management for now. 3 diabetes: Type II patient has been doing well on Lantus 70 units daily along with Trulicity, and metformin also continue NovoLog with sliding scales coverage. 4 chronic depression recurrent with worsening symptoms: Was treated this past year in the inpatient psych were patient has been on Cymbalta 60 mg twice a day along with lorazepam and Seroquel. 5 chronic pain syndrome: Continue patient on hydrocodone along with Lyrica and Ativan. 6 hyperlipidemia: Remain on atorvastatin continue medication. 7 hypothyroidism: Remain on levothyroxine 150 g daily. 8 severe GERD/GI prophylaxis: Patient has been on Zantac and Prilosec. 8 IBS: Patient is doing well on Raymond. 9 arrhythmia: Patient has been on metoprolol 25 mg 3 times a day with good result so far. 10 recent history of URI: Patient was prescribed Augmentin recently. 11 restless leg syndrome: Has been on Requip 5 mg daily at bedtime. 12 post close head injury with no seizure activity: Has been on Trileptal continue medication at 3 in the milligrams twice a day. 13 obstructive sleep apnea: Has been on CPAP. 14 kidney stone with no recurrent attacks. 15 mild amnesia has been slightly better since his last hospitalization. 16 recent history of cervical spine fusion. 17 dysphagia following tibial surgery most likely due to recent cervical spine surgery and affects of anesthesia. CODE STATUS: Full code. Discharge plan: [facility] under the care of Dr. Byrne Impression and plan of care have been directed as dictated by the signing physician. Ivelisse Ferguson nurse practitioner acting as scribe for signing physician. Time with Patient: Greater than 30
--- NOTE | 2016-09-16 15:14 | XR ---
EXAMINATION TYPE: XR tibia fibula RT DATE OF EXAM: 09/16/2016 3:07 PM CLINICAL HISTORY: Right leg fracture, status post open reduction internal fixation. TECHNIQUE: Two views of the right leg are obtained. COMPARISON: Right leg x-ray from 4 days ago FINDINGS: There is interval placement of large intramedullary livia with single proximal and distal fi xating screws through bilateral fracture distal tibial diaphysis. Improved alignment is seen after re duction and fixation. Comminuted minimally displaced fracture through the fibular head is redemonstra jacob with some improved alignment noted since prior. Overlying Skin tj consistent with recent timmy devny proximally and distally are noted. IMPRESSION: There is improved alignment after ORIF procedure of spiral type fracture of distal tibia l diaphysis.
[2016-09-16] MEDS: INSULIN GLARGINE 100 UNIT/ML 10 ML VIAL SQ SCH (16:46)
[2016-09-18] MEDS ORDERED: NON-FORMULARY DRUG (Dulaglutide [Trulicity] 0.75 MG) SQ SCH (09:00)
--- NOTE | 2016-09-24 09:18 | P.HPOR ---
History of Present Illness H&P Date: 09/12/16 Chief Complaint: Right leg pain Patient is a 51 year old male that is admitted throught the ED after experiencing severe leg pain subsequent to a fall at home today 09/12/2016. Patient apparently has been weak since surgery on Thursday where he recently had a cervical fusion. He was being assisted while ambulating to the bathroom when stumbled, fell backward and felt his right leg snap. He immediately developed pain, swelling and difficulty with weight bearing. Xrays ordered after arrival to [facility] ED showed a comminuted displaced spiral fracture of the distal right Tibia and comminuted fracture of the proximal fibula. Xrays of the left lower extremity revealed a nondisplaced fracture of the proximal fibula. He denies numbness or tingling. He has no calf pain. ROS is negative for fever, chills, chest pain, shortness of breath, cough, dizziness, headaches, slurred speech or other. Review of Systems All systems: negative Constitutional: Denies chills, Denies fever Eyes: denies blurred vision, denies pain Ears, nose, mouth and throat: Denies headache, Denies sore throat Cardiovascular: Denies chest pain, Denies shortness of breath Respiratory: Denies cough Gastrointestinal: Denies abdominal pain, Denies diarrhea, Denies nausea, Denies vomiting Musculoskeletal: Denies myalgias Musculoskeletal: right: ankle pain Integumentary: Denies pruritus, Denies rash Neurological: Denies numbness, Denies weakness Psychiatric: Denies anxiety, Denies depression Endocrine: Denies fatigue, Denies weight change Past Medical History Past Medical History: Asthma, Diabetes Mellitus, GERD/Reflux, Hyperlipidemia, Hypertension, Liver Disease, Neurologic Disorder, Sleep Apnea/CPAP/BIPAP, Thyroid Disorder Additional Past Medical History / Comment(s): MIGRAINE, 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 Chronic wound to the left foot subsequently healed, heart arrythmia History of Any Multi-Drug Resistant Organisms: MRSA Date of last positivie culture/infection: 01/15/2014 MDRO Source:: Face Past Surgical History: Cholecystectomy, Orthopedic Surgery Additional Past Surgical History / Comment(s): Biopsy OF LUNG NEG, EGD by Dr. Cantu in 2012 showing esophagitis, neck, C3/C4 fusion Past Anesthesia/Blood Transfusion Reactions: No Reported Reaction Past Psychological History: ADD/ADHD, Bipolar, Depression Smoking Status: Current every day smoker Past Alcohol Use History: None Reported Additional Past Alcohol Use History / Comment(s): Patient history of smoking up to 3 packs per day and has smoked for over 36 years. Patient denies any alcohol use. He smokes marijuana occasionally. Patient is currently on disability due to his bipolar disorder. Patient is currently living at homewith his girlfriend. He has 4 children with her. Past Drug Use History: Marijuana Additional Drug Use History / Comment(s): pt UDS positive for marijuna, denies use - Past Family History Father Family Medical History: Congestive Heart Failure (CHF) Sister(s) Family Medical History: Congestive Heart Failure (CHF) Brother(s) Additional Family Medical History / Comment(s): He has one half-brother with no major medical problems. Mother Family Medical History: No Reported History, Cancer, Congestive Heart Failure ( CHF) Medications and Allergies Home Medications Medication Instructions Recorded Confirmed Type DULoxetine HCL [Cymbalta] 60 mg PO BID 12/05/13 09/12/16 History QUEtiapine [SEROquel] 800 mg PO HS 12/05/13 09/12/16 History Dulaglutide [Trulicity] 0.75 mg SQ TH 01/08/16 09/12/16 History Atorvastatin [Lipitor] 20 mg PO DAILY 09/11/16 09/12/16 History Dicyclomine [Bentyl] 20 mg PO TID 09/11/16 09/12/16 History Levothyroxine Sodium [Synthroid] 150 mcg PO DAILY 09/11/16 09/12/16 History Metoprolol Tartrate [Lopressor] 25 mg PO TID 09/11/16 09/12/16 History Omeprazole 20 mg PO DAILY 09/11/16 09/12/16 History Ranitidine HCl 300 mg PO HS 09/11/16 09/12/16 History metFORMIN HCL [Glucophage] 1,000 mg PO BID 09/11/16 09/12/16 History rOPINIRole HCL [Requip] 5 mg PO HS 09/11/16 09/12/16 History Amoxicillin/Potassium Clav 1 tab PO Q12HR 09/12/16 09/12/16 History [Augmentin 875-125 Tablet] Allergies Allergy/AdvReac Type Severity Reaction Status Date / Time ibuprofen [From Motrin] Allergy Mild Confusion Verified 09/12/16 10:46 risperidone [From Risperdal] Allergy Rash/Hives Verified 09/12/16 10:46 Physical Examination GEN: NAD, AOX3, MAA BLE: Inspection reveals 1-2 + edema in the right distal lower extremity as expected. There is no redness. Painless ROM of the hips. Pain with AROM of the knee and ankle as expected but motor is intact. He is able to dorsiflex and plantar flex feet and toes. Full ROM is not tested due to fractures. Sensation intact to light touch throughout bilateral lower extremities. Calves are soft and nontender. 1+ DP pulses present along with less than less than 2 sec cap refill. Results Xrays of bilateral lower extremities show a comminuted displaced spiral fracture of the right distal tibia along with comminuted fracture of proximal fibula. There is a nondisplaced fracture of the left proximal fibula. - Labs Labs: H & H 09/12/16 09/14/16 Range/Units 14:00 06:57 Hgb 13.8 11.2 L (13.0-17.5) gm/dL Hct 39.1 32.6 L (39.0-53.0) % Coagulation 09/12/16 Range/Units 14:00 INR 1.0 (<1.1) Result Diagrams: 09/14/16 06:57 09/12/16 14:00 Assessment and Plan (1) Closed multiple fractures of both lower limbs Narrative/Plan: Patient has been reviewed with Dr. Kilgore. Plan is to proceed with surgical intervention including closed reduction with internal fixation-IM livia of the right tibia. He will be NPO after midnight. Labs and clearance pending. He will continue with pain management, DVT prophylaxis and medical management. Continue elevation of the right lower extremity. He is to be nonweightbearing with the right lower extremity. A walking boot will be ordered for the left lower extremity which he may be partial weightbearing as tolerated in the boot only. Expect that he will need extended care facility placement for rehabilitation. Status: Acute Time with Patient: Less than 30
== END 2016-09-16 16:41 | DRG 494 ==
LOC: EC 10:23 → 3SUR 13:42
PROVIDERS: ADMIT Orthopaedic Surgery; ATTEND Orthopaedic Surgery
PROC: 0QSG36Z Reposition Right Tibia with Intramedullary Internal Fixation Device, Percutaneous Approach (ICD-10-PCS; principal; 2016-09-15)
DX: S82.241A Displaced spiral fracture of shaft of right tibia, initial encounter for closed fracture (principal); R13.10 Dysphagia, unspecified; I10 Essential (primary) hypertension; S82.451A Displaced comminuted fracture of shaft of right fibula, initial encounter for closed fracture; G47.33 Obstructive sleep apnea (adult) (pediatric); J45.909 Unspecified asthma, uncomplicated; K21.9 Gastro-esophageal reflux disease without esophagitis; M10.9 Gout, unspecified; F90.9 Attention-deficit hyperactivity disorder, unspecified type; F31.9 Bipolar disorder, unspecified; E11.9 Type 2 diabetes mellitus without complications; E66.9 Obesity, unspecified; E78.5 Hyperlipidemia, unspecified; F12.90 Cannabis use, unspecified, uncomplicated; F17.200 Nicotine dependence, unspecified, uncomplicated; W19.XXXA Unspecified fall, initial encounter; Y92.009 Unspecified place in unspecified non-institutional (private) residence as the place of occurrence of the external cause; Z79.4 Long term (current) use of insulin; Z79.899 Other long term (current) drug therapy; Z82.49 Family history of ischemic heart disease and other diseases of the circulatory system; Z87.442 Personal history of urinary calculi; Z79.84 Long term (current) use of oral hypoglycemic drugs; Z88.6 Allergy status to analgesic agent; Z88.8 Allergy status to other drugs, medicaments and biological substances
CPT/HCPCS: 29505; 29515; 36415; 70450; 71010; 71020; 72125; 80053; 82550; 82553; 83036; 84484; 85025; 85610; 85730; 93005; 96360; 96361; 96372; 96374; 99284; 99285

== ENCOUNTER → 2016-10-29 | Outpatient (CLI) | payer MEDICARE, OTHER ==
--- NOTE | 2016-10-30 20:34 | BD ---
EXAMINATION TYPE: MG DEXA axial skeleton. DATE OF EXAM: 10/29/2016 3:49 PM COMPARISON: NONE CLINICAL HISTORY: 51-year-old male with bilateral lower extremity fracture Height: 73 IN Weight: 246 LBS FRAX RISK QUESTIONS: Alcohol (3 or more units per day): NO Family History (Parent hip fracture): NO Glucocorticoids (More than 3mos): NO (Ex: prednisone, prednisolone, methylprednisolone, dexamethasone, and hydrocortisone). History of Fracture in Adulthood: YES LT TIBIA FX; RT TIB/FIB AND ANKLE AGE 51 Secondary Osteoporosis: 1. Type 1 Diabetes: NO 2. Hyperthyroidism: NO 3. Menopause before 45: N/A 4. Malnutrition: NO 5. Chronic liver disease: NO Rheumatoid Arthritis: NO Current Tobacco Use: YES RISK FACTORS HISTORY OF: Other Fractures since Age 51: YES LT TIBIA/ RT TIB / FIB AND ANKLE AGE 51 When: AGE 51 Active: MODERATE Diet low in dairy products/other sources of calcium: YES MEDICATIONS: Thyroid Medications: YES Which medication: Levothyroxine How Lon YRS Additional Medications: NORCO, ZANTAC, LOPRESSOR, METFORMIN, D3, ATIVAN, LIPITOR, REQUIP, PRILOSEC, S EROQUEL, LYRICA, LANTUS EXAM MEASUREMENTS: Bone mineral densitometry was performed using the [employer]. Bone mineral density as measured about the Lumbar spine is: ----- L1-L4(G/cm2): 1.257 T Score Values are as follows: ----- L2: -0.1 ----- L3: 1.7 ----- L4: 0.2 ----- L1-L4: 0.6 Bone mineral density BASELINE Bone mineral density about the R hip (g/cm2): 1.025 Bone mineral density about the L hip (g/cm2): 1.032 T Score values are as follows: -----R Neck: -0.1 -----L Neck: 0.0 -----R Intertrochanter: -0.4 -----L Intertrochanter: 0.0 Bone mineral density BASELINE IMPRESSION: Normal (Values between +1 and -1 indicate normal bone mass). NOTE: T-SCORE=SD OF THE YOUNG ADULT MEAN.
== END ==
LOC: RADBDWWP 15:47
PROVIDERS: ATTEND Family Medicine
DX: S82.92XA Unspecified fracture of left lower leg, initial encounter for closed fracture (principal)
CPT/HCPCS: 77080

== ENCOUNTER → 2016-11-28 | Outpatient (CLI) | payer MEDICARE, OTHER ==
[2016-11-28 19:15] LABS: Basophils # (A) 0.1 k/uL (0-0.2); Basophils % (A) 1 %; CH 31.5; CHCM 34.6; Eosinophils # (A) 0.3 k/uL (0-0.7); Eosinophils % (A) 3 %; HDW 3.12; HGB 14.4 gm/dL (13.0-17.5); Luc # (Auto) 0.12; Luc % (Auto) 2; Lymphocytes # (A) 2.1 k/uL (1.0-4.8); Lymphocytes % (A) 29 %; MCH 31.5 pg (25.0-35.0); MCHC 34.3 g/dL (31.0-37.0); MCV 91.6 fL (80.0-100.0); Mean Platelet Volume 7.2; Monocytes # (A) 0.4 k/uL (0-1.0); Monocytes % (A) 5 %; Neutrophils # (A) 4.4 k/uL (1.3-7.7); Neutrophils % (A) 60 %; RBC 4.59 m/uL (4.30-5.90); RDW 14.6 % (11.5-15.5); WBC 7.3 k/uL (3.8-10.6); WBC (Perox) 7.35
[2016-11-28 22:14] LABS: Erythrocyte Sedimentation Rate 13 mm/hr (0-15)
== END | disposition home or self-care (01) ==
LOC: MMGSC 14:31
PROVIDERS: ATTEND Family Medicine
DX: L03.90 Cellulitis, unspecified (principal)
CPT/HCPCS: 36415; 85025; 85652; 99213

== ENCOUNTER 2017-01-19 10:31 | Day surgery (SDC) | payer MEDICARE, OTHER ==
[2017-01-14 13:25] VITALS: BMI 30.7
[~2017-01-19 10:31] MED LIST changes: +DEXAMETHASONE SOD PHOSPHATE 10 MG/ML 1 ML VIAL IV ONE; +HYDROmorphone 1 MG/ML 1 ML SYRINGE IVP PRN; +LACTATED RINGERS 1,000 ML IV SCH; +LIDOCAINE 1% 20 ML VIAL (10MG/ML) FOR IV START INTRADERMA PRN; +ONDANSETRON 4 MG/2 ML VIAL IVP ONE; -REGADENOSON 0.4 MG/5 ML SYRINGE IV ONE; +SCOPOLAMINE 1.5MG/72HR PATCH TRANSDERM ONE; +ceFAZolin 2 GM in SODIUM CHLORIDE 0.9% 100 ML IVPB ONE
[2017-01-19 11:13] LABS: Glucose,Whole Blood 90 mg/dL (75-99)
[2017-01-19 11:21] VITALS: RESP 16
[2017-01-19] MEDS ORDERED: MIDAZOLAM 2 MG/2 ML VIAL ONE (11:35)
[2017-01-19] MEDS ORDERED: PROPOFOL 10 MG/ML 20 ML VIAL IV ONE (11:35)
[2017-01-19] MEDS ORDERED: PHENYLEPHRINE-0.9% NACL SYG 1 MG/10 ML SYRINGE ONE (11:35)
[2017-01-19] MEDS ORDERED: LIDOCAINE 1% INJ 10MG/ML (20 ML MDV) ONE (11:35)
[2017-01-19] MEDS ORDERED: fentaNYL (PF) 50 MCG/ML 2 ML AMP ONE (11:35)
[2017-01-19] MEDS ORDERED: SUCCINYLCHOLINE CHLORIDE 100 MG/5 ML SYR IV ONE (11:35)
[2017-01-19 12:25] VITALS: TEMP 98
[2017-01-19 12:40] LABS: Glucose,Whole Blood 91 mg/dL (75-99)
[2017-01-19 13:11] VITALS: BP 112/78; PULSE 96
--- NOTE | 2017-01-21 07:32 | OP ---
DATE OF SERVICE: 01/19/2017 SURGEON : Wesley Kilgore DO DENTAL TECHNOLOGIST: PREOPERATIVE DIAGNOSIS: Irritating metal (distal locking IM livia screw) right tibia. POSTOPERATIVE DIAGNOSIS: Irritating metal (distal locking IM livia screw) right tibia. ( ) Fractured distal locking screw IM livia with irritating metal. PROCEDURE: Removal of distal interlocking screw right tibia. ANESTHESIA: PROCEDURE: The patient was taken to the operative suite and placed in supine position. General inhalation anesthesia was performed by the department of anesthesiology. A Betadine scrub was carried out over the right leg and sterile drapes applied in the usual manner. Pneumatic tourniquet was inflated to ( ) mmHg. An ( ) inch and a half incision was developed over the distal locking screw head. Blunt dissection through subcutaneous tissue is performed. ( ) were gently retracted and the screw was identified and removed in its entirety. ( ) in the distal portion ( ). Area was irrigated. Subcutaneous tissue and retinaculum approximated with 2-0 Vicryl suture. Skin was approximated with 2-0 Vicryl suture. ( ) applied. Patient was transferred to the recovery room in satisfactory postoperative condition. GROSS PATHOLOGY: There was evidence of fracture distal interlocking screw right IM livia ( ) of the distal tibia. MTDD
== END 2017-01-19 13:52 | disposition home or self-care (01) ==
LOC: OR 10:31
PROVIDERS: ATTEND Orthopaedic Surgery
DX: T85.848A Pain due to other internal prosthetic devices, implants and grafts, initial encounter (principal); I10 Essential (primary) hypertension; E03.9 Hypothyroidism, unspecified; E78.5 Hyperlipidemia, unspecified; K21.9 Gastro-esophageal reflux disease without esophagitis; F41.9 Anxiety disorder, unspecified; J45.909 Unspecified asthma, uncomplicated; F31.9 Bipolar disorder, unspecified; E11.9 Type 2 diabetes mellitus without complications; Z86.14 Personal history of Methicillin resistant Staphylococcus aureus infection; F17.200 Nicotine dependence, unspecified, uncomplicated; Z79.84 Long term (current) use of oral hypoglycemic drugs; Z79.4 Long term (current) use of insulin; Z79.891 Long term (current) use of opiate analgesic; Z79.899 Other long term (current) drug therapy; Z88.6 Allergy status to analgesic agent; Z88.8 Allergy status to other drugs, medicaments and biological substances
CPT/HCPCS: 20680; J2250; J1100; J0690; J2405; J2001; J3010; J2370; J0330; J2704

== ENCOUNTER → 2017-03-04 | Outpatient (CLI) | payer MEDICARE, OTHER ==
[2017-03-04 13:05] LABS: ALT 43 U/L (21-72); AST 25 U/L (17-59); Alkaline Phosphatase 184 U/L (38-126); Anion Gap 13 mmol/L; Blood Urea Nitrogen 13 mg/dL (9-20); Calcium 9.5 mg/dL (8.4-10.2); Carbon Dioxide 26 mmol/L (22-30); Chloride 103 mmol/L (98-107); Creatine Kinase <20 U/L (55-170); Glucose 125 mg/dL (74-99); Non-African American GFR(MDRD) 55 (>60 ml/min/1.73 sqM); Potassium 4.5 mmol/L (3.5-5.1); Sodium 142 mmol/L (137-145); Total Bilirubin 0.8 mg/dL (0.2-1.3); Total Protein 7.4 g/dL (6.3-8.2)
[2017-03-04 14:45] LABS: Appearance,Urine Clear (Clear); Bacteria,Urine Rare /hpf; Bilirubin,Urine 1+ (Negative); Glucose,Urine (UA) Negative (Negative); Ketones,Urine 2+ (Negative); Leukocyte Esterase,Urine Negative (Negative); Mucus,Urine Rare /hpf; Nitrite,Urine Negative (Negative); PH, Urine 5.5 (5.0-8.0); Particle Count 4961; Protein,Urine 1+ (Negative); RBC,Urine 1 /hpf (0-5); Specific Gravity,Urine 1.031 (1.001-1.035); UA Billing (MACRO vs. MICRO) MICRO; WBC,Urine 1 /hpf (0-5)
== END | disposition home or self-care (01) ==
LOC: LABWHC1 12:09
PROVIDERS: ATTEND Family Medicine
DX: R53.83 Other fatigue (principal); M79.1 Myalgia
CPT/HCPCS: 36415; 80053; 81001; 82550; 83605; 87086

== ENCOUNTER → 2017-03-06 | Outpatient (CLI) | payer MEDICARE, OTHER | END | disposition home or self-care (01) | LOC: LABWHC1 12:48 | PROVIDERS: ATTEND Family Medicine | DX: R79.89 Other specified abnormal findings of blood chemistry (principal); E11.9 Type 2 diabetes mellitus without complications | CPT/HCPCS: 36415; 81050; 82575; 84156 ==

== ENCOUNTER → 2017-03-17 | Outpatient (CLI) | payer MEDICARE, OTHER ==
--- NOTE | 2017-03-17 15:06 | US ---
EXAMINATION TYPE: US kidneys/renal and bladder DATE OF EXAM: 03/17/2017 COMPARISON: CT abdomen November 06, 2014 CLINICAL HISTORY: R94.4 ELEVATED CREATININE. EXAM MEASUREMENTS: Right Kidney: 9.9 X 3.8 X 4.8 cm Left Kidney: 10.2 x 4.2 x 4.3 cm Right Kidney: No hydronephrosis or masses seen Left Kidney: No hydronephrosis or masses seen. Subcentimeter low density area visualized on CT not vi sualized on today's exam Bladder: Not fully distended, wnl as visualized Bilateral Jets seen: Yes Incidental finding: Liver appears to have coarse echotexture and is enlarged There is no evidence for hydronephrosis at this point in time. No nephrolithiasis is seen. No yolis s are identified. The urinary bladder is anechoic but poorly distended. Bilateral ureteral jets are seen. IMPRESSION: No hydronephrosis is evident bilaterally. Incidental note is made of prominent heterogeneous liver ra ising concern for fatty infiltration or underlying hepatocellular disease. Clinical and lab correlati on advised.
== END | disposition home or self-care (01) ==
LOC: RADUSWWP 13:36
PROVIDERS: ATTEND Family Medicine
DX: R94.4 Abnormal results of kidney function studies (principal)
CPT/HCPCS: 76770

== ENCOUNTER → 2017-06-20 | Outpatient (CLI) | payer MEDICARE, OTHER | LOC: EC 14:58 | PROVIDERS: ATTEND Internal Medicine | DX: Z53.9 Procedure and treatment not carried out, unspecified reason (principal) ==

== ENCOUNTER → 2017-07-10 | Outpatient (CLI) | payer MEDICARE, OTHER ==
[2017-07-13 13:56] LABS: Albumin 4.33 g/dL (3.80-4.90); Gamma Globulin 0.54 g/dL (0.70-1.50); Protein, Total 6.5 g/dL (6.2-8.2)
== END | disposition home or self-care (01) ==
LOC: LABWHC1 09:06
PROVIDERS: ATTEND Nurse Practitioner Family
DX: N18.3 Chronic kidney disease, stage 3 (moderate) (principal)
CPT/HCPCS: 36415; 83883; 84165; 86335

== ENCOUNTER → 2017-08-12 | Outpatient (CLI) | payer MEDICARE, OTHER ==
[2017-08-12 18:59] LABS: Blood Urea Nitrogen 11 mg/dL (9-20)
--- NOTE | 2017-08-13 07:17 | CT ---
EXAMINATION TYPE: CT chest w con DATE OF EXAM: 08/12/2017 COMPARISON: CTA chest January 22, 2014 HISTORY: Shortness of breath and chest discomfort. CT DLP: 532.7 mGycm. Automated Exposure Control for Dose Reduction was Utilized. TECHNIQUE: CT scan of the thorax is performed following with IV Contrast, patient injected with 100 mL of Omnipaque 300. FINDINGS: LUNGS: There is mild to moderate underlying emphysematous change. There is no suspicious focal ground glass opacity or consolidation. Some mild scattered areas of linear scarring and/or atelectasis are s een bilaterally. No suspicious parenchymal nodule or mass is identified. Tracheobronchial tree is pat ent. MEDIASTINUM: There are no greater than 1 cm hilar or mediastinal lymph nodes. No cardiomegaly is se en. There is small pericardial effusion anteriorly and inferiorly redemonstrated slightly more promi nent versus prior. There is 4 vessel aortic arch which is normal variant noted. OTHER: There is persistent prominent spleen with new cleft or separation. Suspect surgical removal of large cystic lesion. Cholecystectomy clips are noted. There is dextroconvex scoliosis centered in th e mid thoracic spine redemonstrated. IMPRESSION: Mild to moderate underlying emphysematous change without suspicious acute pulmonary proce ss. Small pericardial effusion slightly larger versus prior.
== END | disposition home or self-care (01) ==
LOC: RADCTMAIN 18:19
PROVIDERS: ATTEND Internal Medicine Critical Care Medicine
DX: J43.9 Emphysema, unspecified (principal); I31.3 Pericardial effusion (noninflammatory)
CPT/HCPCS: 82565; 84520; 71260; 36415; Q9967

== ENCOUNTER → 2017-08-19 | Outpatient (CLI) | payer MEDICARE, OTHER ==
[2017-08-19 19:18] LABS: ALT 19 U/L (21-72); AST 14 U/L (17-59); Alkaline Phosphatase 102 U/L (38-126); Anion Gap 14 mmol/L; Blood Urea Nitrogen 10 mg/dL (9-20); Calcium 9.7 mg/dL (8.4-10.2); Carbon Dioxide 22 mmol/L (22-30); Chloride 108 mmol/L (98-107); Cholesterol 136 mg/dL (<200); Glucose 244 mg/dL (74-99); HDL Cholesterol 28 mg/dL (40-60); LDL Cholesterol,Calculated 35 mg/dL (0-99); Sodium 144 mmol/L (137-145); Total Bilirubin 0.2 mg/dL (0.2-1.3); Total Protein 6.6 g/dL (6.3-8.2); Triglycerides 365 mg/dL (<150)
[2017-08-19 19:23] LABS: Potassium 3.9 mmol/L (3.5-5.1)
[2017-08-20 01:11] LABS: Hemoglobin A1C 7.2 % (4.0-6.0)
== END | disposition home or self-care (01) ==
LOC: MMGSC 14:47
PROVIDERS: ATTEND Family Medicine
DX: E11.9 Type 2 diabetes mellitus without complications (principal); E78.5 Hyperlipidemia, unspecified
CPT/HCPCS: 36415; 80053; 80061; 83036; 99214

== ENCOUNTER → 2017-10-20 | Outpatient (CLI) | payer MEDICARE, OTHER ==
[2017-10-20 07:59] LABS: ALT 25 U/L (21-72); AST 12 U/L (17-59); Albumin 4.6 g/dL (3.5-5.0); Alkaline Phosphatase 126 U/L (38-126); Anion Gap 16 mmol/L; Blood Urea Nitrogen 12 mg/dL (9-20); Calcium 10.1 mg/dL (8.4-10.2); Carbon Dioxide 26 mmol/L (22-30); Chloride 103 mmol/L (98-107); Glucose 165 mg/dL (74-99); Magnesium 1.3 mg/dL (1.6-2.3); Phosphorus 3.5 mg/dL (2.5-4.5); Potassium 4.5 mmol/L (3.5-5.1); Sodium 145 mmol/L (137-145); Total Bilirubin 0.4 mg/dL (0.2-1.3); Total Protein 7.3 g/dL (6.3-8.2); Uric Acid 7.7 mg/dL (3.5-8.5)
[2017-10-20 11:23] LABS: Parathyroid Hormone Intact 53.9 pg/mL (14.0-72.0); Vitamin D 25 Hydroxy 20.4 ng/mL (30.0-100.0)
== END | disposition home or self-care (01) ==
LOC: LABWHC1 06:36
PROVIDERS: ATTEND Nurse Practitioner Family
DX: E55.9 Vitamin D deficiency, unspecified (principal); N39.0 Urinary tract infection, site not specified; E21.3 Hyperparathyroidism, unspecified; M10.9 Gout, unspecified; N18.3 Chronic kidney disease, stage 3 (moderate); R80.9 Proteinuria, unspecified
CPT/HCPCS: 36415; 80053; 82306; 83735; 83970; 84100; 84550

== ENCOUNTER → 2018-01-07 | Outpatient (CLI) | payer MEDICARE, OTHER | END | disposition home or self-care (01) | LOC: LABWHC1 16:52 | PROVIDERS: ATTEND Family Medicine | DX: Z01.812 Encounter for preprocedural laboratory examination (principal) | CPT/HCPCS: 36415; 93005 ==

== ENCOUNTER 2018-06-08 10:18 | Emergency (ER) | payer MEDICARE, OTHER ==
[2018-06-08 10:24] VITALS: RESP 18
[2018-06-08] MEDS ORDERED: DIPH,PERTUS(ACELL)TETVAC-LF 0.5 ML VIAL IM ONE (10:40)
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
[2018-06-08 12:11] VITALS: BP 117/69; PULSE 95; TEMP 97.6
== END 2018-06-08 12:08 | disposition home or self-care (01) ==
LOC: EC 10:18
DX: T25.232A Burn of second degree of left toe(s) (nail), initial encounter (principal); T25.231A Burn of second degree of right toe(s) (nail), initial encounter; Z23 Encounter for immunization; F31.9 Bipolar disorder, unspecified; E78.5 Hyperlipidemia, unspecified; E11.40 Type 2 diabetes mellitus with diabetic neuropathy, unspecified; E07.9 Disorder of thyroid, unspecified; G40.909 Epilepsy, unspecified, not intractable, without status epilepticus; G47.30 Sleep apnea, unspecified; J45.909 Unspecified asthma, uncomplicated; I10 Essential (primary) hypertension; K21.9 Gastro-esophageal reflux disease without esophagitis; F17.200 Nicotine dependence, unspecified, uncomplicated; Z79.4 Long term (current) use of insulin; Z79.899 Other long term (current) drug therapy; Z88.6 Allergy status to analgesic agent; Z88.8 Allergy status to other drugs, medicaments and biological substances; X11.8XXA Contact with other hot tap-water, initial encounter
CPT/HCPCS: 16020; 90471; 90715; 99283

== ENCOUNTER 2018-10-24 23:23 | Emergency (ER) | payer MEDICARE, OTHER ==
[2018-10-24] MEDS ORDERED: oxyCODONE-APAP 10-325MG 1 EACH TAB PO STA (23:54)
--- NOTE | 2018-10-25 00:33 | XR ---
EXAM: XR Lumbar Spine, 4 or 5 Views CLINICAL HISTORY: ITS.REASON XR Reason: Pain TECHNIQUE: Frontal, lateral and oblique views of the lumbar spine. COMPARISON: 06/09/17. FINDINGS: Vertebrae: Slight L5 superior endplate irregularity. L2-3 partial fusion again noted. Disc spaces: Degenerative changes. Soft tissues: Surgical clips. IMPRESSION: Slight L5 superior endplate irregularity. Correlate with focal tenderness. CT may be considered if indicated.
--- NOTE | 2018-10-25 01:56 | CT ---
EXAM: CT Lumbar Spine Without Intravenous Contrast CLINICAL HISTORY: Patient presents with lower back pain after falling down [address] Reason: Pain TECHNIQUE: Axial computed tomography images of the lumbar spine without intravenous contrast. CTDI is 33.6 mGy and DLP is 1273.9 mGy-cm. This CT exam was performed using one or more of the following dose reduction techniques: automated exposure control, adjustment of the mA and/or kV according to patient size, and/or use of iterative reconstruction technique. COMPARISON: MRI 06/09/17. FINDINGS: Vertebrae: No acute fracture. L2-L3 partial fusion is again noted. Discs/spinal canal/neural foramina: Degenerative changes with varying degrees of mild central canal and neuroforaminal narrowing. Soft tissues: Unremarkable. Kidneys and ureters: Nonspecific bilateral perinephric stranding. IMPRESSION: No acute fracture.
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
[2018-10-25] MEDS ORDERED: ACET/COD 300 MG/30 MG STARTER PACK 6 TAB BTL PO STA (02:03)
[2018-10-25 02:22] VITALS: BP 126/86; PULSE 91; RESP 16; TEMP 98
== END 2018-10-25 02:23 | disposition home or self-care (01) ==
LOC: EC 23:23
DX: M54.5 Low back pain (principal); K21.9 Gastro-esophageal reflux disease without esophagitis; I10 Essential (primary) hypertension; E78.5 Hyperlipidemia, unspecified; E11.40 Type 2 diabetes mellitus with diabetic neuropathy, unspecified; E07.9 Disorder of thyroid, unspecified; F31.9 Bipolar disorder, unspecified; F90.9 Attention-deficit hyperactivity disorder, unspecified type; F17.200 Nicotine dependence, unspecified, uncomplicated; Z86.14 Personal history of Methicillin resistant Staphylococcus aureus infection; Z79.4 Long term (current) use of insulin; Z79.899 Other long term (current) drug therapy; Z88.6 Allergy status to analgesic agent; Z88.8 Allergy status to other drugs, medicaments and biological substances; W10.9XXA Fall (on) (from) unspecified stairs and steps, initial encounter
CPT/HCPCS: 72110; 72131; 99284

== ENCOUNTER 2018-11-19 01:59 | Emergency (ER) | payer MEDICARE, OTHER ==
[2018-11-19 02:31] VITALS: TEMP 98.1
[2018-11-19] MEDS ORDERED: MORPHINE SULFATE 4 MG/ML SYRINGE IV STA (03:10)
[2018-11-19 03:30] LABS: ALT 15 U/L (21-72); AST 19 U/L (17-59); Albumin 4.7 g/dL (3.5-5.0); Alkaline Phosphatase 95 U/L (38-126); Amylase 30 U/L (30-110); Anion Gap 9 mmol/L; Blood Urea Nitrogen 8 mg/dL (9-20); Calcium 9.7 mg/dL (8.4-10.2); Carbon Dioxide 23 mmol/L (22-30); Chloride 109 mmol/L (98-107); Glucose 145 mg/dL (74-99); Lipase 51 U/L (23-300); Potassium 3.8 mmol/L (3.5-5.1); Sodium 141 mmol/L (137-145); Total Bilirubin 0.6 mg/dL (0.2-1.3); Total Protein 7.2 g/dL (6.3-8.2)
[2018-11-19 03:37] LABS: Basophils # (A) 0.1 k/uL (0-0.2); Basophils % (A) 1 %; Eosinophils # (A) 0.2 k/uL (0-0.7); Eosinophils % (A) 2 %; HCT 43.4 % (39.0-53.0); HGB 15.4 gm/dL (13.0-17.5); Lymphocytes # (A) 3.1 k/uL (1.0-4.8); Lymphocytes % (A) 30 %; MCH 31.2 pg (25.0-35.0); MCHC 35.4 g/dL (31.0-37.0); MCV 88.1 fL (80.0-100.0); Monocytes # (A) 0.5 k/uL (0-1.0); Monocytes % (A) 5 %; Neutrophils # (A) 6.2 k/uL (1.3-7.7); Neutrophils % (A) 59 %; Platelet Count 207 k/uL (150-450); RBC 4.93 m/uL (4.30-5.90); RDW 14.7 % (11.5-15.5); WBC 10.4 k/uL (3.8-10.6)
[2018-11-19 03:43] LABS: Appearance,Urine Cloudy (Clear); Bilirubin,Urine Negative (Negative); Blood,Urine Trace (Negative); Color,Urine Yellow; Glucose,Urine (UA) Negative (Negative); Ketones,Urine Negative (Negative); Leukocyte Esterase,Urine Negative (Negative); Mucus,Urine Moderate /hpf; Nitrite,Urine Negative (Negative); Protein,Urine 1+ (Negative); RBC,Urine 14 /hpf (0-5); Specific Gravity,Urine 1.018 (1.001-1.035); Sperm,Urine Many /hpf; Squamous Epithelial Cell,Urine 2 /hpf (0-4); Urobilinogen,Urine <2.0 mg/dL (<2.0); WBC,Urine 7 /hpf (0-5)
--- NOTE | 2018-11-19 04:03 | CT ---
EXAM: CT Abdomen and Pelvis Without Intravenous Contrast CLINICAL HISTORY: ITS.REASON CT Reason: Pain TECHNIQUE: Axial computed tomography images of the abdomen and pelvis without intravenous contrast. CTDI is 13 mGy and DLP is 782 mGy-cm. This CT exam was performed using one or more of the following dose reduction techniques: automated exposure control, adjustment of the mA and/or kV according to patient size, and/or use of iterative reconstruction technique. COMPARISON: 11/06/14 CT abdomen FINDINGS: Lung bases: No mass. No consolidation. ABDOMEN: Liver: Enlarged. Gallbladder and bile ducts: Removed. Pancreas: No ductal dilation. Spleen: Unremarkable. Adrenals: Unremarkable. Kidneys and ureters: No obstructing stones. No hydronephrosis. Stomach and bowel: No bowel obstruction or bowel wall thickening. Fatty infiltration of the colon wall, nonspecific. Diffusely fluid- filled small bowel. PELVIS: Appendix: No evidence of appendicitis. Bladder: No stones. Reproductive: Unremarkable. ABDOMEN and PELVIS: Intraperitoneal space: Unremarkable. Bones/joints: No acute fractures. L2-3 partial fusion. Soft tissues: Unremarkable. Vasculature: No abdominal aortic aneurysm. Lymph nodes: No enlarged lymph nodes. IMPRESSION: 1. Diffusely fluid-filled small bowel, correlate with gastroenteritis. 2. Hepatomegaly.
[2018-11-19] MEDS ORDERED: DOXYCYCLINE 100 MG CAP PO STA (04:41)
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
[2018-11-19 05:47] VITALS: BP 143/86; RESP 18
[2018-11-19 05:48] VITALS: PULSE 90
== END 2018-11-19 06:15 | disposition home or self-care (01) ==
LOC: EC 01:59
DX: N39.0 Urinary tract infection, site not specified (principal); E11.40 Type 2 diabetes mellitus with diabetic neuropathy, unspecified; K21.9 Gastro-esophageal reflux disease without esophagitis; E78.5 Hyperlipidemia, unspecified; I10 Essential (primary) hypertension; E07.9 Disorder of thyroid, unspecified; R56.9 Unspecified convulsions; F32.9 Major depressive disorder, single episode, unspecified; F17.200 Nicotine dependence, unspecified, uncomplicated; G47.30 Sleep apnea, unspecified; Z99.89 Dependence on other enabling machines and devices; Z87.442 Personal history of urinary calculi; Z86.14 Personal history of Methicillin resistant Staphylococcus aureus infection; Z90.49 Acquired absence of other specified parts of digestive tract; Z79.890 Hormone replacement therapy; Z79.4 Long term (current) use of insulin; Z79.899 Other long term (current) drug therapy; Z88.6 Allergy status to analgesic agent; Z88.8 Allergy status to other drugs, medicaments and biological substances
CPT/HCPCS: 36415; 80053; 82150; 83690; 85025; 81001; 74176; 99284; 96374; J2270

== ENCOUNTER 2018-12-15 15:29 | Emergency (ER) | payer MEDICARE, OTHER ==
[2018-12-15 15:45] VITALS: TEMP 98.2
[2018-12-15 15:49] LABS: Glucose,Whole Blood 129 mg/dL (75-99)
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
[2018-12-15 17:30] LABS: Basophils # (A) 0.1 k/uL (0-0.2); Basophils % (A) 1 %; Eosinophils # (A) 0.2 k/uL (0-0.7); Eosinophils % (A) 2 %; HCT 45.3 % (39.0-53.0); HGB 15.5 gm/dL (13.0-17.5); Lymphocytes # (A) 3.1 k/uL (1.0-4.8); Lymphocytes % (A) 32 %; MCH 30.5 pg (25.0-35.0); MCHC 34.1 g/dL (31.0-37.0); MCV 89.4 fL (80.0-100.0); Mean Platelet Volume 6.8; Monocytes # (A) 0.5 k/uL (0-1.0); Monocytes % (A) 5 %; Neutrophils # (A) 5.9 k/uL (1.3-7.7); Neutrophils % (A) 59 %; Platelet Count 232 k/uL (150-450); RBC 5.07 m/uL (4.30-5.90); RDW 15.7 % (11.5-15.5); WBC 9.9 k/uL (3.8-10.6)
[2018-12-15 17:37] LABS: ALT 12 U/L (21-72); AST 14 U/L (17-59); African American GFR (CKD) >90 (>60 ml/min/1.73 sqM); Albumin 4.8 g/dL (3.5-5.0); Alkaline Phosphatase 92 U/L (38-126); Anion Gap 12 mmol/L; Blood Urea Nitrogen 11 mg/dL (9-20); Calcium 9.8 mg/dL (8.4-10.2); Carbon Dioxide 21 mmol/L (22-30); Chloride 111 mmol/L (98-107); Glucose 98 mg/dL (74-99); Magnesium 1.4 mg/dL (1.6-2.3); Phosphorus 3.4 mg/dL (2.5-4.5); Potassium 4.2 mmol/L (3.5-5.1); Sodium 144 mmol/L (137-145); Total Bilirubin 0.4 mg/dL (0.2-1.3); Total Protein 7.5 g/dL (6.3-8.2)
[2018-12-15 17:47] VITALS: PULSE 66
[2018-12-15 17:50] LABS: Appearance,Urine Clear (Clear); Bilirubin,Urine Negative (Negative); Blood,Urine Negative (Negative); Color,Urine Yellow; Glucose,Urine (UA) Negative (Negative); Hyaline Casts,Urine 10 /lpf (0-2); Ketones,Urine Negative (Negative); Leukocyte Esterase,Urine Negative (Negative); Mucus,Urine Few /hpf; Nitrite,Urine Negative (Negative); Protein,Urine 1+ (Negative); RBC,Urine 1 /hpf (0-5); Specific Gravity,Urine 1.034 (1.001-1.035); Squamous Epithelial Cell,Urine 1 /hpf (0-4); WBC,Urine 2 /hpf (0-5)
[2018-12-15] MEDS ORDERED: SODIUM CHLORIDE 0.9% 1,000 ML IV STA (18:05)
[2018-12-15] MEDS ORDERED: MAGNESIUM OXIDE 400 MG TAB PO STA (18:06)
[2018-12-15 18:53] VITALS: BP 127/81; RESP 18
[2018-12-16 01:29] LABS: Hemoglobin A1C 8.1 % (4.0-6.0)
== END 2018-12-15 20:24 | disposition home or self-care (01) ==
LOC: EC 15:29
DX: E11.649 Type 2 diabetes mellitus with hypoglycemia without coma (principal); F31.9 Bipolar disorder, unspecified; K21.9 Gastro-esophageal reflux disease without esophagitis; E78.5 Hyperlipidemia, unspecified; I10 Essential (primary) hypertension; G47.30 Sleep apnea, unspecified; E07.9 Disorder of thyroid, unspecified; F17.200 Nicotine dependence, unspecified, uncomplicated; Z79.4 Long term (current) use of insulin; Z79.890 Hormone replacement therapy; Z79.899 Other long term (current) drug therapy; Z88.6 Allergy status to analgesic agent; Z88.8 Allergy status to other drugs, medicaments and biological substances
CPT/HCPCS: 36415; 80053; 81001; 82009; 83036; 83735; 84100; 85025; 96360; 96361; 99283

== ENCOUNTER 2019-03-22 19:27 | Emergency (ER) | payer MEDICARE, OTHER ==
[2019-03-22 20:06] VITALS: BP 130/82; PULSE 100; RESP 20; TEMP 97.5
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
== END 2019-03-22 21:30 | disposition home or self-care (01) ==
LOC: EC 19:27
DX: M25.512 Pain in left shoulder (principal); E11.42 Type 2 diabetes mellitus with diabetic polyneuropathy; K21.9 Gastro-esophageal reflux disease without esophagitis; E78.5 Hyperlipidemia, unspecified; I10 Essential (primary) hypertension; E07.9 Disorder of thyroid, unspecified; F31.9 Bipolar disorder, unspecified; F17.200 Nicotine dependence, unspecified, uncomplicated; Z88.6 Allergy status to analgesic agent; Z88.8 Allergy status to other drugs, medicaments and biological substances; Z79.4 Long term (current) use of insulin; Z79.890 Hormone replacement therapy; Z79.899 Other long term (current) drug therapy; Z86.14 Personal history of Methicillin resistant Staphylococcus aureus infection; Z86.69 Personal history of other diseases of the nervous system and sense organs; Z98.1 Arthrodesis status
CPT/HCPCS: 99283

== ENCOUNTER 2019-05-03 20:27 | Emergency (ER) | payer MEDICARE, OTHER ==
[2019-05-03 20:46] VITALS: BP 116/73; PULSE 102; TEMP 97.2
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
[2019-05-03 21:52] VITALS: RESP 16
== END 2019-05-03 21:45 | disposition home or self-care (01) ==
LOC: EC 20:27
DX: S91.302A Unspecified open wound, left foot, initial encounter (principal); E11.9 Type 2 diabetes mellitus without complications; E11.40 Type 2 diabetes mellitus with diabetic neuropathy, unspecified; J45.909 Unspecified asthma, uncomplicated; K21.9 Gastro-esophageal reflux disease without esophagitis; E78.5 Hyperlipidemia, unspecified; I10 Essential (primary) hypertension; G47.30 Sleep apnea, unspecified; E07.9 Disorder of thyroid, unspecified; F31.9 Bipolar disorder, unspecified; F90.9 Attention-deficit hyperactivity disorder, unspecified type; F17.200 Nicotine dependence, unspecified, uncomplicated; Z79.890 Hormone replacement therapy; Z79.899 Other long term (current) drug therapy; Z79.4 Long term (current) use of insulin; Z88.6 Allergy status to analgesic agent; Z88.8 Allergy status to other drugs, medicaments and biological substances; Z98.1 Arthrodesis status; Z99.89 Dependence on other enabling machines and devices; X58.XXXA Exposure to other specified factors, initial encounter
CPT/HCPCS: 99283

== ENCOUNTER 2019-05-04 23:53 | Inpatient (IN) | payer MEDICARE, OTHER ==
[2019-05-05] MEDS ORDERED: SODIUM CHLORIDE 0.9% 1,000 ML IV STA (00:05)
[2019-05-05] MEDS ORDERED: methylPREDNISolone SOD SUCCI 125 MG/2 ML VIAL IV STA (00:05)
[2019-05-05] MEDS ORDERED: IPRATROPIUM-ALBUTEROL 3 ML NEB INHALATION STA ×3 (00:05→03:35)
[2019-05-05] MEDS ORDERED: SODIUM CHLORIDE 0.9% 500 ML 500 ML IV STA (00:10)
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
[2019-05-05 01:19] LABS: Basophils # (A) 0.1 k/uL (0-0.2); Basophils % (A) 1 %; Eosinophils # (A) 0.2 k/uL (0-0.7); Eosinophils % (A) 2 %; HCT 42.4 % (39.0-53.0); HGB 14.8 gm/dL (13.0-17.5); Lymphocytes # (A) 2.3 k/uL (1.0-4.8); Lymphocytes % (A) 19 %; MCH 31.6 pg (25.0-35.0); MCHC 34.9 g/dL (31.0-37.0); MCV 90.4 fL (80.0-100.0); Mean Platelet Volume 6.1; Monocytes # (A) 0.6 k/uL (0-1.0); Monocytes % (A) 5 %; Neutrophils # (A) 8.8 k/uL (1.3-7.7); Neutrophils % (A) 72 %; Platelet Count 210 k/uL (150-450); RDW 13.1 % (11.5-15.5); WBC 12.2 k/uL (3.8-10.6)
[2019-05-05] MEDS: MAGNESIUM SULFATE-D5W PMX 1 GM in DEXTROSE/WATER 1 100ML.BAG IVPB SCH ×3 (01:24→02:38)
[2019-05-05 01:31] LABS: Partial Thromboplastin Time 25.8 sec (22.0-30.0); Prothrombin Time 10.3 sec (9.0-12.0)
--- NOTE | 2019-05-05 01:31 | XR ---
EXAMINATION TYPE: XR chest 2V DATE OF EXAM: 05/05/2019 COMPARISON: 12/23/2018 HISTORY: Difficulty breathing TECHNIQUE: Frontal and lateral views of the chest are obtained. FINDINGS: Heart and mediastinum are normal. There is mild emphysema and the right upper lobe. There is some mild linear density right midlung. There is no pleural effusion. There are no hilar masses. T here is no heart failure. IMPRESSION: There is evidence for emphysema and pulmonary scarring in the upper lobes. Normal heart. No significant change. Old right-sided healed rib fractures noted.
[2019-05-05 01:32] LABS: Albumin 4.4 g/dL (3.5-5.0); Calcium 9.3 mg/dL (8.4-10.2); Magnesium 1.1 mg/dL (1.6-2.3); Potassium 4.1 mmol/L (3.5-5.1); Total Bilirubin 0.5 mg/dL (0.2-1.3); Total Protein 7.2 g/dL (6.3-8.2)
[2019-05-05] MEDS ORDERED: NICOTINE POLACRILEX 2 MG GUM BUCCAL PRN (03:36)
[2019-05-05] MEDS ORDERED: IPRATROPIUM-ALBUTEROL 3 ML NEB INHALATION PRN (03:36)
[2019-05-05 07:06] LABS: Glucose,Whole Blood 264 mg/dL (75-99)
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
[2019-05-05] MEDS: LEVOTHYROXINE 75 MCG TAB PO SCH (07:40)
[2019-05-05] MEDS: INSULIN ASPART (NovoLOG) 100 UNIT/ML VIAL SQ SCH ×4 (07:41→20:43)
[2019-05-05] MEDS: PANTOPRAZOLE 40 MG TABLET PO SCH (07:41)
[2019-05-05] MEDS: NICOTINE 21MG/24HR PATCH TRANSDERM SCH ×2 (08:48→09:36)
[2019-05-05] MEDS: PREGABALIN 100 MG CAP PO SCH ×2 (08:48→20:43)
[2019-05-05] MEDS: METOPROLOL TARTRATE 25 MG TAB PO SCH ×3 (08:48→20:42)
[2019-05-05] MEDS: DULoxetine HCL 60 MG CAPSULE.DR PO SCH ×2 (08:48→20:43)
[2019-05-05] MEDS: HEPARIN SODIUM,PORCINE 5,000 UNIT/ML 1 ML VIAL SQ SCH ×2 (08:48→15:15)
[2019-05-05] MEDS: ATORVASTATIN 20 MG TAB PO SCH (08:48)
[2019-05-05] MEDS: OXcarbazepine 150 MG TAB PO SCH ×2 (08:49→20:43)
[2019-05-05] MEDS ORDERED: OXcarbazepine 300 MG TAB PO SCH ×2 (09:00)
[2019-05-05] MEDS ORDERED: predniSONE 20 MG TAB PO SCH (09:00)
[2019-05-05 09:49] LABS: Basophils % (A) 0 %; Eosinophils % (A) 0 %; HCT 39.3 % (39.0-53.0); HGB 13.5 gm/dL (13.0-17.5); Lymphocytes # (A) 0.6 k/uL (1.0-4.8); Lymphocytes % (A) 10 %; MCH 31.3 pg (25.0-35.0); MCHC 34.4 g/dL (31.0-37.0); Mean Platelet Volume 6.3; Monocytes # (A) 0.2 k/uL (0-1.0); Monocytes % (A) 3 %; Neutrophils # (A) 5.1 k/uL (1.3-7.7); Neutrophils % (A) 86 %; Platelet Count 175 k/uL (150-450); RBC 4.32 m/uL (4.30-5.90); RDW 13.2 % (11.5-15.5); WBC 5.9 k/uL (3.8-10.6)
[2019-05-05 10:02] LABS: Calcium 8.8 mg/dL (8.4-10.2); Magnesium 1.7 mg/dL (1.6-2.3); Potassium 3.9 mmol/L (3.5-5.1)
[2019-05-05] MEDS: IPRATROPIUM-ALBUTEROL 3 ML NEB INHALATION SCH ×3 (11:03→19:00)
[2019-05-05 11:43] LABS: Glucose,Whole Blood 191 mg/dL (75-99)
[2019-05-05] MEDS: methylPREDNISolone SOD SUCCI 125 MG/2 ML VIAL IV SCH ×2 (11:59→17:17)
[2019-05-05] MEDS: AZITHROMYCIN 500 MG TAB PO SCH (11:59)
--- NOTE | 2019-05-05 12:25 | P.PN ---
Subjective Progress Note Date: 05/05/19 Principal diagnosis: COPD exacerbation Patient was seen. Patient reports no changes in his breathing since admission. Patient continues to complain of shortness of breath and wheezing. He denies any chest pain or palpitations. States that he smokes 3 packs of cigarettes daily. Patient appears to be in no acute distress. Acute COPD exacerbation Acute kidney injury Hypomagnesemia We'll continue present management. Continue Solu-Medrol and DuoNeb around the clock and as needed for shortness of breath and wheezing. Added formoterol. O2 per NC to maintain O2 saturation greater than 92%. Follow pulmonology consultation. Likely DC in 1-2 days. Objective - Vital Signs Vital signs: Vital Signs Temp 98.8 F 05/05/19 07:00 Pulse 102 H 05/05/19 08:20 Resp 16 05/05/19 08:00 BP 111/74 05/05/19 07:00 Pulse Ox 94 L 05/05/19 07:00 Intake & Output 05/04/19 05/05/19 05/05/19 18:59 06:59 18:59 Intake Total 240 Balance 240 Weight 102.965 kg Intake: Oral 240 Other: Voiding Method Toilet # Voids 1 # Bowel Movements 1 - Labs CBC & Chem 7: 05/05/19 09:18 05/05/19 09:18 Labs: Abnormal Lab Results - Last 24 Hours (Table) 05/05/19 05/05/19 05/05/19 Range/Units 00:40 00:40 06:54 WBC 12.2 H (3.8-10.6) k/uL Neutrophils # 8.8 H (1.3-7.7) k/uL Lymphocytes # (1.0-4.8) k/uL Chloride 108 H (98-107) mmol/L Carbon Dioxide 20 L (22-30) mmol/L BUN 27 H (9-20) mg/dL Creatinine 2.17 H (0.66-1.25) mg/dL Glucose 130 H (74-99) mg/dL POC Glucose (mg/dL) 264 H (75-99) mg/dL Magnesium 1.1 L (1.6-2.3) mg/dL AST 15 L (17-59) U/L ALT 19 L (21-72) U/L Creatine Kinase 23 L (55-170) U/L 05/05/19 05/05/19 05/05/19 Range/Units 09:18 09:18 11:32 WBC (3.8-10.6) k/uL Neutrophils # (1.3-7.7) k/uL Lymphocytes # 0.6 L (1.0-4.8) k/uL Chloride (98-107) mmol/L Carbon Dioxide (22-30) mmol/L BUN 29 H (9-20) mg/dL Creatinine 1.99 H (0.66-1.25) mg/dL Glucose 246 H (74-99) mg/dL POC Glucose (mg/dL) 191 H (75-99) mg/dL Magnesium (1.6-2.3) mg/dL AST (17-59) U/L ALT (21-72) U/L Creatine Kinase (55-170) U/L
[2019-05-05 14:10] VITALS: BMI 28.3
--- NOTE | 2019-05-05 14:25 | P.CON ---
Consult Note - . Consult date: 05/05/19 Assessment/Plan:: This is a 53-year-old male who is being seen by wound care center for a nonhealing ulceration to the left calcaneus. Patient states that he noticed that a few weeks ago when he took his shoe off and there was blood on his sock. Patient is a diabetic. He has never had wound care treatment previously. Patient states that his diabetes is under control. Patient also has a ulceration to the right medial calcaneus and right dorsal foot. Left calcaneus ulceration shows granulation approximately 5 x 4 x 0.1 cm minimal slough noted ecchymosis noted to appear wound. Right medial calcaneus measures approximately 0.5 x 0.5 x 0.1 cm with fatty layer exposure slough noted throughout. Right dorsal foot measuring approximate 0.5 x 0.5 x 0.1. Area appears healed. Review of systems Integumentary: Reports ulcerations, denies pruritus, ecchymosis, edema Physical exam: Integumentary: See HPI Assessment/plan: 1. Diabetic foot ulcer grade 2 with pressure component to left calcaneus. Apply collagen, saline moistened gauze, dry gauze, rolled gauze and secure with tape. Change Thursday. Discussed with patient the importance of keeping blood sugars under control. Discussed with patient the importance of having diabetic shoes. Instructed patient to follow-up with wound care. Patient did have a appointment scheduled for today we'll reschedule next week. 2. Diabetic foot ulcer grade 2 to right medial calcaneus and dorsal right foot. As noted above Thank you for the consultation. Any questions please call the wound care center. DNP note has been reviewed and discussed with Dr. Theodore and the impression and plan of care has been directed as dictated.
[2019-05-05 17:13] LABS: Glucose,Whole Blood 182 mg/dL (75-99)
[2019-05-05] MEDS ORDERED: INSULIN DETEMIR (LEVEMIR) 100 UNIT/ML SYR SQ SCH (17:30)
--- NOTE | 2019-05-05 18:25 | CONS ---
CONSULTATION REASON FOR CONSULTATION: Shortness of breath. HISTORY OF PRESENT ILLNESS: This is a 53-year-old gentleman with a history of underlying COPD. He has seen my partner in the past. He has stage III disease. His FEV1, when checked back in 2018, was 49% of predicted. He also was thought to have sarcoidosis, but apparently my partner stated that he did not. He came with complaints of shortness of breath. He states that he was having chest tightness, wheezing and cough. The patient was coughing up a small amount of phlegm. He does smoke about 3 packs of cigarettes per day. Has been smoking from the age of about 16 or so. The patient denies any fever or chills. The patient denies any chest pain or chest discomfort. There was no nausea, vomiting or diarrhea. No genitourinary complaints. He was evaluated in the emergency room, admitted with a diagnosis of COPD exacerbation, chronic tobacco use and hypoxemic respiratory failure. CURRENT MEDICATIONS: Reviewed. He is on Cymbalta, Seroquel, Trulicity, Lipitor, Bentyl, Synthroid, Lopressor, omeprazole, ranitidine, metformin, Requip Cassatt, insulin, Ativan, magnesium, Trileptal, Lyrica, Silvadene cream, and doxycycline. ALLERGIES: IBUPROFEN AND RISPERIDONE. MEDICAL HISTORY: COPD, diabetes, GERD, hyperlipidemia, hypertension, chronic liver disease, traumatic brain injury, sleep apnea syndrome, hypothyroidism, diabetic neuropathy, migraine cephalgia, kidney stones, gout, atrial tachycardia, and seizure disorder. SURGICAL HISTORY: Includes cholecystectomy and various orthopedic procedures. He has also had a lung biopsy to rule out sarcoidosis, EGD, C3, C4 fusion, right tibial surgery with livia and screw insertion, cardioversion, and some sort of stent placement in his spleen. SOCIAL HISTORY: Positive for significant tobacco use. He smokes 2-3 packs a day. He does smoke marijuana. Denies alcohol use. FAMILY HISTORY: Positive for a father with congestive heart failure. Mother with heart failure. A sister with CHF and a brother with no major medical problems. REVIEW OF SYSTEMS: CONSTITUTIONAL negative. HEENT negative. CARDIOVASCULAR negative. PULMONARY: Shortness of breath, chest tightness, wheezing, cough, chest congestion, difficulty breathing. GI negative. negative. RHEUMATOLOGIC negative. IMMUNOLOGIC negative. ENDOCRINOLOGIC negative. DERMATOLOGIC negative. PHYSICAL EXAMINATION: VITAL SIGNS: Current vital signs are reviewed. His temperature is 98.8. Heart rate 100. Respiratory rate 16, blood pressure 111/74 mean 86, 2 L saturation 94%. GENERAL: Appears in no acute distress. He does have a very wet congested cough. HEENT examination is grossly unremarkable. Mucous membranes are moist. No oral lesions. Nasal O2 noted. NECK: Supple. Full range of motion. No adenopathy or thyromegaly. Neck veins are flat. CARDIOVASCULAR examination reveals regular rhythm and rate. Heart rate about 90 beats per minute. S1, S2 normal. Heart sounds are distant. No distinct murmur noted. LUNGS: Reveal coarse inspiratory and expiratory rhonchi and wheezes. Breath sounds are diminished. There is prolongation on forced maneuver. The patient coughs and wheezes on forced maneuver. ABDOMEN: Soft. Bowel sounds are heard. There is no masses or tenderness. EXTREMITIES are intact. No cyanosis, clubbing, or edema. SKIN: Without rash. NEUROLOGIC: Examination is brief but nonfocal. LABS: Reviewed. White count 5.9, hemoglobin 13.5, hematocrit 39.3, platelet count 175,000. Sodium, potassium and chloride, CO2 all normal. Anion gap normal. BUN and creatinine were 29 and 1.99 compared to 27 and 2.17 earlier. The rest of the labs look good. Troponins were negative x2. N-terminal proBNP was 29. Influenza studies were negative. X-RAY: Chest x-ray was done. It shows findings consistent with COPD. There is also some scarring in the upper lobes. Right-sided healed rib fractures are noted. No acute abnormality appreciated. Microbiology is pending or negative. Medications are reviewed. He is currently on Pulmicort and formoterol. We have him on DuoNeb q.i.d. and p.r.n. He is also on Solu-Medrol 60 mg q.6h. Finally, we put him on Zithromax, 500 mg a day. ASSESSMENT: 1. Chronic obstructive pulmonary disease exacerbation complicated by purulent tracheobronchitis, without driss pneumonia. 2. History of well-established severe/stage 3 chronic obstructive pulmonary disease with an FEV1 of 49% of predicted. 3. Previous workup for sarcoidosis, negative. 4. History of diabetes mellitus. 5. Gastroesophageal reflux disease. 6. Hyperlipidemia. 7. Hypertension. 8. Sleep apnea syndrome. 9. Hypothyroidism. 10.History of migraine cephalgia. 11.History of gout. 12.History of kidney stones. 13.Traumatic brain injury. 14.Multiple other medical problems and comorbidities. PLAN: The patient is on appropriate medications. We counseled him about the importance of smoking cessation. He would benefit from a nicotine patch. He is on a short-acting beta agonist, short-acting muscarinic antagonist, and long-acting beta agonist, inhaled corticosteroids, systemic corticosteroids and oral antibiotics. He should improve. He should follow up with my partner Dr. Philip in the future. Additional recommendations and suggestions are forthcoming. He has not been to our office since early 2018. MMODL / IJN: [id number] /
[2019-05-05] MEDS: FORMOTEROL FUMARATE 20 MCG/2 ML NEBU INHALATION SCH (19:00)
[2019-05-05] MEDS: BUDESONIDE 1 MG/2 ML NEBU INHALATION SCH (19:00)
[2019-05-05 20:00] LABS: Glucose,Whole Blood 269 mg/dL (75-99)
[2019-05-05] MEDS ORDERED: QUEtiapine 400 MG TAB PO SCH (21:00)
[2019-05-06] MEDS: methylPREDNISolone SOD SUCCI 125 MG/2 ML VIAL IV SCH ×3 (00:24→12:33)
[2019-05-06] MEDS: HEPARIN SODIUM,PORCINE 5,000 UNIT/ML 1 ML VIAL SQ SCH ×2 (00:24→07:06)
[2019-05-06 01:31] VITALS: TEMP 97.8
[2019-05-06] MEDS: LEVOTHYROXINE 75 MCG TAB PO SCH (05:38)
[2019-05-06 06:46] LABS: Glucose,Whole Blood 201 mg/dL (75-99)
[2019-05-06] MEDS: INSULIN ASPART (NovoLOG) 100 UNIT/ML VIAL SQ SCH ×2 (07:06→12:33)
[2019-05-06] MEDS: PANTOPRAZOLE 40 MG TABLET PO SCH (07:07)
[2019-05-06] MEDS: DULoxetine HCL 60 MG CAPSULE.DR PO SCH (07:07)
[2019-05-06] MEDS: METOPROLOL TARTRATE 25 MG TAB PO SCH (07:07)
[2019-05-06] MEDS: PREGABALIN 100 MG CAP PO SCH (07:07)
[2019-05-06] MEDS: ATORVASTATIN 20 MG TAB PO SCH (07:07)
[2019-05-06] MEDS: NICOTINE 21MG/24HR PATCH TRANSDERM SCH (07:07)
[2019-05-06] MEDS: OXcarbazepine 150 MG TAB PO SCH (07:08)
[2019-05-06] MEDS: AZITHROMYCIN 500 MG TAB PO SCH (07:08)
[2019-05-06 07:24] VITALS: BP 113/70; RESP 16
[2019-05-06] MEDS: BUDESONIDE 1 MG/2 ML NEBU INHALATION SCH (07:47)
[2019-05-06] MEDS: IPRATROPIUM-ALBUTEROL 3 ML NEB INHALATION SCH ×2 (07:47→10:51)
[2019-05-06] MEDS: FORMOTEROL FUMARATE 20 MCG/2 ML NEBU INHALATION SCH (07:47)
--- NOTE | 2019-05-06 09:56 | P.DS ---
Providers Date of admission: 05/05/19 03:38 Expected date of discharge: 05/06/19 Attending physician: Augustine Solis MD Consults: 05/05/19 07:53 Consult Physician Routine Consulting Provider: Victoriano Philip Consult Reason/Comments: COPD exacerbation Do you want consulting provider notified?: Yes Primary care physician: [facility] Course: 53-year-old male with PMH of COPD, diabetes mellitus, hypertension initially presented to [facility] with complaints of shortness of breath and wheezing, refractory to inhalers and nebulizers. He admitted to smoking 3 packs of cigarettes daily. He underwent extensive evaluation in the ED. Chest x-ray showed evidence for emphysema and old right-sided rib fracture. Patient was negative for flu. BNP was within normal limits. Troponin was less than 0.0122 with EKG showing sinus tachycardia, acute coronary syndrome was ruled out. Patient's oxygen saturation was as low as 91% on 2 L nasal cannula in the ED. He was admitted for COPD exacerbation with pulmonology in consultation. He was started on IV Solu-Medrol along with DuoNeb treatments around the clock and as needed for shortness of breath and wheezing. Pulmonology was consulted and azithromycin, Pulmicort and formoterol was added to his COPD treatment. Wound care was consulted for a left heel ulcer and they agree to follow him in the outpatient setting. Patient was seen and examined. No acute events overnight. Patient reports considerable improvement in his breathing. States that he is back to baseline. Patient states that he would like to go home today. He denies any chest pain, shortness of breath or palpitations. No nausea or vomiting. No fever or chills. General: non toxic, no distress, appears at stated age Derm: warm, dry Head: atraumatic, normocephalic, symmetric Eyes: EOMI, no lid lag, anicteric sclera Mouth: no lip lesion, mucus membranes moist Cardiovascular: S1S2 reg, tachycardia, positive DP pulse bilateral, Lungs: End expiratory wheezing bilateral, no rhonchi, no rales , no accessory muscle use Abdominal: soft, nontender to palpation, no guarding, no appreciable org anomegaly Ext: no gross muscle atrophy, no edema, no contractures, left lower extremity dressing clean dry and intact Neuro: no focal neuro deficits Psych: Alert, oriented, appropriate affect Assessment and plan Acute hypoxic respiratory failure secondary to COPD exacerbation due to acute bronchitis Diabetes mellitus with hyperglycemia due to steroids Acute kidney injury Left lower extremity wound Resolved: Hypomagnesemia Patient is saturating 92% on room air currently. He is slightly tachycardic with heart rate around 100. Patient is adamant about going home. Plans: Discu ssed with RN, plans for 6 minute walk test. Continue Solu-Medrol. Continue DuoNeb treatments. Started on formoterol and Pulmicort by pulmonology. Start azithromycin for concerns of acute bronchitis. O2 per NC to maintain O2 saturation greater than 92%. Evufy-zv-vhey glucose 201. Anticipate increase insulin requirements due to steroid use. Plans: Continue Levemir home dose. Insulin sliding scale. Regular Accu-Cheks. Hypoglycemic precautions. Creatinine 1.99. Likely due to dehydration. Plans: Encourage hydration by mouth. Repeat BMP in 3 days. Plans: Adequate follow-up at wound care center. [Patient is improved since admission. Would benefit from 1 day of treatment. Very adamant about going home. Will follow 6 minute walk test. Possible DC later today or tomorrow if no oxygen requirements. Prescription signed for nebulizer machine.] Pertinent Studies: Chest x-ray Patient Condition at Discharge: Stable Plan - Discharge Summary New Discharge Prescriptions: New Ipratropium-Albuterol Nebulize [Duoneb 0.5 mg-3 mg/3 ml Soln] 3 ml INHALATION RT-Q4H PRN #90 ampul.neb PRN Reason: Shortness Of Breath Or Wheezing Ipratropium-Albuterol Nebulize [Duoneb 0.5 mg-3 mg/3 ml Soln] 3 ml INHALATION RT-QID ampul.neb OXcarbazepine [Trileptal] 450 mg PO BID tab Azithromycin [Zithromax] 500 mg PO DAILY #1 tab predniSONE [Deltasone] 40 mg PO DAILY #8 tablet Continue QUEtiapine [SEROquel] 800 mg PO HS DULoxetine HCL [Cymbalta] 60 mg PO BID Dulaglutide [Trulicity] 0.75 mg SQ MO Omeprazole 20 mg PO DAILY Levothyroxine Sodium [Synthroid] 150 mcg PO DAILY metFORMIN HCL [Glucophage] 1,000 mg PO BID Dicyclomine [Bentyl] 20 mg PO TID Atorvastatin [Lipitor] 20 mg PO DAILY Pregabalin [Lyrica] 100 mg PO BID #60 cap LORazepam [Ativan] 2 mg PO BID Insulin Degludec [Tresiba Flextouch U-200] 40 units SQ DAILY oxyCODONE-APAP 10-325MG [Percocet 10-325 mg] 1 tab PO Q6HR PRN PRN Reason: Pain Losartan Potassium 50 mg PO DAILY rOPINIRole HCL [Requip] 2.5 mg PO HS OXcarbazepine [Trileptal] 450 mg PO BID LORazepam [Ativan] 1 mg PO HS Albuterol Inhaler [Ventolin Hfa Inhaler] 2 puff INHALATION RT-Q6H PRN #1 inh PRN Reason: Shortness Of Breath Discontinued Ranitidine HCl 300 mg PO BID Discharge Medication List DULoxetine HCL [Cymbalta] 60 mg PO BID 12/05/13 [History] QUEtiapine [SEROquel] 800 mg PO HS 12/05/13 [History] Dulaglutide [Trulicity] 0.75 mg SQ MO 01/08/16 [History] Atorvastatin [Lipitor] 20 mg PO DAILY 09/11/16 [History] Dicyclomine [Bentyl] 20 mg PO TID 09/11/16 [History] Levothyroxine Sodium [Synthroid] 150 mcg PO DAILY 09/11/16 [History] Omeprazole 20 mg PO DAILY 09/11/16 [History] metFORMIN HCL [Glucophage] 1,000 mg PO BID 09/11/16 [History] Pregabalin [Lyrica] 100 mg PO BID #60 cap 09/16/16 [Rx] LORazepam [Ativan] 2 mg PO BID 01/14/17 [History] Insulin Degludec [Tresiba Flextouch U-200] 40 units SQ DAILY 05/05/19 [History] LORazepam [Ativan] 1 mg PO HS 05/05/19 [History] Losartan Potassium 50 mg PO DAILY 05/05/19 [History] OXcarbazepine [Trileptal] 450 mg PO BID 05/05/19 [History] oxyCODONE-APAP 10-325MG [Percocet 10-325 mg] 1 tab PO Q6HR PRN 05/05/19 [History] rOPINIRole HCL [Requip] 2.5 mg PO HS 05/05/19 [History] Albuterol Inhaler [Ventolin Hfa Inhaler] 2 puff INHALATION RT-Q6H PRN #1 inh 05/06/19 [Rx] Azithromycin [Zithromax] 500 mg PO DAILY #1 tab 05/06/19 [Rx] Ipratropium-Albuterol Nebulize [Duoneb 0.5 mg-3 mg/3 ml Soln] 3 ml INHALATION RT-Q4H PRN #90 ampul.neb 05/06/19 [Rx] Ipratropium-Albuterol Nebulize [Duoneb 0.5 mg-3 mg/3 ml Soln] 3 ml INHALATION RT-QID ampul.neb 05/06/19 [Rx] OXcarbazepine [Trileptal] 450 mg PO BID tab 05/06/19 [Rx] predniSONE [Deltasone] 40 mg PO DAILY #8 tablet 05/06/19 [Rx] Follow up Appointment(s)/Referral(s): Faith Olivera MD [Primary Care Provider] - 1-2 days Victoriano Philip MD [STAFF PHYSICIAN] - 1 Week Activity/Diet/Wound Care/Special Instructions: Diet: Diabetic Follow-up PCP within 3 days of discharge. Follow-up pulmonology within 1 week of discharge. Take all medications as advised. Discharge Disposition: HOME SELF-CARE
[2019-05-06 10:00] VITALS: PULSE 124
--- NOTE | 2019-05-06 10:55 | P.PN ---
Subjective Progress Note Date: 05/06/19 Principal diagnosis: Acute exacerbation of chronic obstructive pulmonary disease, complicated by purulent tracheobronchitis. The patient is seen today 05/06/2019 in follow-up on the regular medical floor. He is currently sitting up at the bedside. Awake and alert in no acute d istress. He is maintaining good O2 saturations in the low 90s on 2 L/m per nasal cannula. He did desaturate into the low 80s while walking on room air. Recovered back on 2 L. He'll need home oxygen. Blood cultures reveal no growth. He has been maintained on DuoNeb inhalations, Pulmicort and Perforomist inhalations, IV Solu-Medrol. Antibiotics in form of azithromycin. NicoDerm patch in place. Objective - Vital Signs Vital signs: Vital Signs Temp 97.8 F 05/06/19 06:50 Pulse 124 H 05/06/19 09:56 Resp 16 05/06/19 06:50 BP 113/70 05/06/19 06:50 Pulse Ox 91 L 05/06/19 09:56 Intake & Output 05/05/19 05/06/19 05/06/19 18:59 06:59 18:59 Intake Total 150 Balance 150 Weight 102.965 kg Intake: Oral 150 Other: Voiding Method Toilet Toilet # Voids 1 1 # Bowel Movements 1 - Exam GENERAL EXAM: Alert, pleasant 53-year-old gentleman, active, comfortable in no apparent distress. On 2 L nasal cannula. HEAD: Normocephalic. EYES: Normal reaction of pupils, equal size. NOSE: Clear with pink turbinates. THROAT: No erythema or exudates. NECK: No masses, no JVD. CHEST: No chest wall deformity. LUNGS: Equal air entry with end expiratory wheeze, diminished. CVS: S1 and S2 normal with no audible murmur, regular rhythm. ABDOMEN: No hepatosplenomegaly, normal bowel sounds, no guarding or rigidity. SPINE: No scoliosis or deformity SKIN: No rashes CENTRAL NERVOUS SYSTEM: No focal deficits, tone is normal in all 4 extremities. EXTREMITIES: There is no peripheral edema. Dressing to the left foot. No clubbing, no cyanosis. Peripheral pulses are intact. - Labs CBC & Chem 7: 05/05/19 09:18 05/05/19 09:18 Labs: Abnormal Lab Results - Last 24 Hours (Table) 05/05/19 05/05/19 05/05/19 Range/Units 11:32 17:01 19:59 POC Glucose (mg/dL) 191 H 182 H 269 H (75-99) mg/dL 05/06/19 Range/Units 06:45 POC Glucose (mg/dL) 201 H (75-99) mg/dL Microbiology - Last 24 Hours (Table) 05/05/19 00:40 Blood Culture - Preliminary Blood No Growth after 24 hours Assessment and Plan Assessment: Impression: #1 Acute exacerbation of chronic obstructive pulmonary disease, complicated by purulent tracheobronchitis. #2 History of severe Gold stage III chronic obstructive pulmonary disease with an FEV1 value of 49% of predicted. #3 Diabetes mellitus. #4 Hypertension. #5 Hyperlipidemia. #6 Obstructive sleep apnea. #7 Hypothyroidism. Plan: The patient was seen and evaluated by Dr. Chandler. His breathing is nearly back to his baseline. He does require home oxygen upon discharge. He did complete a prednisone burst and taper starting at 40 mg daily for 4 days. Zithromax for complete 7 days. He should follow-up in our office in 1-2 weeks' time. He is encouraged to call sooner with any recurrence of symptoms or other questions or concerns. He is also again encouraged regarding the importance of complete smoking cessation. I, the cosigning physician, performed a history & physical examination of the patient. Lungs sounds with end expiratory wheeze, diminished. Maintaining good O2 saturations in the 90s on 2 L/m per nasal cannula. I discussed the assessment and plan of care with my nurse practitioner, Chen Joe. I attest to the above note as dictated by her.
[2019-05-06 11:43] LABS: Glucose,Whole Blood 291 mg/dL (75-99)
== END 2019-05-06 13:20 | disposition home or self-care (01) | DRG 190 ==
LOC: EC 23:53 → 4SSUR 05-05 03:38
PROVIDERS: ADMIT Internal Medicine; ATTEND Internal Medicine
DX: J43.9 Emphysema, unspecified (principal); J96.01 Acute respiratory failure with hypoxia; N17.0 Acute kidney failure with tubular necrosis; L97.429 Non-pressure chronic ulcer of left heel and midfoot with unspecified severity; Z16.24 Resistance to multiple antibiotics; J20.9 Acute bronchitis, unspecified; E03.9 Hypothyroidism, unspecified; E11.40 Type 2 diabetes mellitus with diabetic neuropathy, unspecified; E11.621 Type 2 diabetes mellitus with foot ulcer; E11.65 Type 2 diabetes mellitus with hyperglycemia; E78.5 Hyperlipidemia, unspecified; E83.42 Hypomagnesemia; E86.0 Dehydration; F17.210 Nicotine dependence, cigarettes, uncomplicated; F31.9 Bipolar disorder, unspecified; F90.9 Attention-deficit hyperactivity disorder, unspecified type; G40.909 Epilepsy, unspecified, not intractable, without status epilepticus; G47.33 Obstructive sleep apnea (adult) (pediatric); I10 Essential (primary) hypertension; K21.9 Gastro-esophageal reflux disease without esophagitis; Z87.820 Personal history of traumatic brain injury; T38.0X5A Adverse effect of glucocorticoids and synthetic analogues, initial encounter; Z79.4 Long term (current) use of insulin; Z79.890 Hormone replacement therapy; Z79.899 Other long term (current) drug therapy; Z82.49 Family history of ischemic heart disease and other diseases of the circulatory system; Z87.442 Personal history of urinary calculi; Z91.19 Patient's noncompliance with other medical treatment and regimen; Z88.6 Allergy status to analgesic agent; Z88.8 Allergy status to other drugs, medicaments and biological substances; Z98.1 Arthrodesis status; L97.512 Non-pressure chronic ulcer of other part of right foot with fat layer exposed
CPT/HCPCS: 36415; 71046; 80048; 80053; 82550; 83735; 83880; 84484; 85025; 85610; 85730; 87040; 87502; 93005; 94640; 96361; 96365; 96366; 96375; 99285; 99406

== ENCOUNTER 2019-06-29 23:21 | Emergency (ER) | payer MEDICARE, OTHER ==
[2019-06-29 23:50] VITALS: BP 129/91; PULSE 107; RESP 20; TEMP 98.1
[2019-06-29] MEDS ORDERED: SODIUM CHLORIDE 0.9% 1,000 ML IV ONE (23:59)
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
[2019-06-30 00:42] LABS: Basophils % (A) 0 %; Eosinophils # (A) 0.3 k/uL (0-0.7); Eosinophils % (A) 3 %; HCT 41.4 % (39.0-53.0); HGB 14.8 gm/dL (13.0-17.5); Lymphocytes # (A) 2.4 k/uL (1.0-4.8); Lymphocytes % (A) 28 %; MCH 32.4 pg (25.0-35.0); MCHC 35.7 g/dL (31.0-37.0); MCV 90.6 fL (80.0-100.0); Mean Platelet Volume 7.4; Monocytes # (A) 0.4 k/uL (0-1.0); Monocytes % (A) 5 %; Neutrophils # (A) 5.4 k/uL (1.3-7.7); Neutrophils % (A) 62 %; Platelet Count 202 k/uL (150-450); RBC 4.57 m/uL (4.30-5.90); RDW 13.4 % (11.5-15.5); WBC 8.8 k/uL (3.8-10.6)
[2019-06-30 00:47] LABS: Appearance,Urine Clear (Clear); Bilirubin,Urine Negative (Negative); Blood,Urine Negative (Negative); Color,Urine Yellow; Glucose,Urine (UA) Trace (Negative); Ketones,Urine Negative (Negative); Leukocyte Esterase,Urine Trace (Negative); Mucus,Urine Rare /hpf; Nitrite,Urine Negative (Negative); Protein,Urine 1+ (Negative); RBC,Urine <1 /hpf (0-5); Specific Gravity,Urine 1.034 (1.001-1.035); Sperm,Urine Rare /hpf; Squamous Epithelial Cell,Urine 2 /hpf (0-4); WBC,Urine 2 /hpf (0-5)
[2019-06-30 00:50] LABS: INR 0.9 (<1.2); Partial Thromboplastin Time 24.4 sec (22.0-30.0); Prothrombin Time 9.8 sec (9.0-12.0)
[2019-06-30 00:53] LABS: ALT 11 U/L (4-49); AST 14 U/L (17-59); African American GFR (CKD) >90 (>60 ml/min/1.73 sqM); Albumin 4.6 g/dL (3.5-5.0); Alkaline Phosphatase 110 U/L (38-126); Anion Gap 11 mmol/L; Blood Urea Nitrogen 15 mg/dL (9-20); Calcium 9.4 mg/dL (8.4-10.2); Carbon Dioxide 27 mmol/L (22-30); Chloride 102 mmol/L (98-107); Glucose 209 mg/dL (74-99); Non-African American GFR(CKD) 81 (>60 ml/min/1.73 sqM); Potassium 4.2 mmol/L (3.5-5.1); Sodium 140 mmol/L (137-145); Total Bilirubin 0.5 mg/dL (0.2-1.3); Total Protein 7.4 g/dL (6.3-8.2)
[2019-06-30 01:07] LABS: Amylase <30 U/L (30-110)
--- NOTE | 2019-06-30 02:15 | CT ---
EXAMINATION TYPE: CT abdomen pelvis w con DATE OF EXAM: 06/30/2019 COMPARISON: HISTORY: RUQ pain CT DLP: 1908.1 mGycm Automated exposure control for dose reduction was used. CONTRAST: Performed with IV Contrast, patient injected with 100 mL of Isovue 300. Multiple axial sections were obtained from the diaphragm to the floor the pelvis with intravenous con trast. Lung bases are clear. There is no pleural effusion. Heart size is normal. There are clips from cholecystectomy. Liver appears normal. There is accessory spleen. There is no ev idence of splenic mass. Stomach appears normal. There is no evidence of pancreatic mass. Bile ducts a re not dilated. There is no adrenal mass. Kidneys show satisfactory contrast opacification. There is no hydronephrosi s. Ureters are not dilated. There is no retroperitoneal adenopathy. Bladder distends smoothly. There is no inguinal hernia. There is no free fluid in the pelvis. There is no mesenteric edema. There is no ascites or free air. Appendix measures up to 9 mm. There is no sign of inflammatory changes around the appendix. Bony pelvis is intact. There is disc space narrowing at L2-3. There is no lumbar compression fracture . IMPRESSION: Borderline thickening of the appendix. No definite sign of appendicitis. I do not see a definite caus e for right upper quadrant pain.
== END 2019-06-30 02:59 | disposition home or self-care (01) ==
LOC: EC 23:21
DX: R10.11 Right upper quadrant pain (principal); G89.29 Other chronic pain; E11.40 Type 2 diabetes mellitus with diabetic neuropathy, unspecified; K21.9 Gastro-esophageal reflux disease without esophagitis; E78.5 Hyperlipidemia, unspecified; I10 Essential (primary) hypertension; G47.30 Sleep apnea, unspecified; F31.9 Bipolar disorder, unspecified; F17.200 Nicotine dependence, unspecified, uncomplicated; Z79.4 Long term (current) use of insulin; Z79.890 Hormone replacement therapy; Z79.899 Other long term (current) drug therapy; Z88.6 Allergy status to analgesic agent; Z88.8 Allergy status to other drugs, medicaments and biological substances; Z98.1 Arthrodesis status; Z99.89 Dependence on other enabling machines and devices
CPT/HCPCS: 36415; 80053; 82150; 83690; 85025; 85610; 85730; 81001; 74177; 99284; 96360; 96361 ×2; Q9967

== ENCOUNTER 2019-07-04 18:11 | Emergency (ER) | payer MEDICARE, OTHER ==
[2019-07-04 18:54] VITALS: RESP 18
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
[2019-07-04] MEDS ORDERED: IOPAMIDOL CONTRAST (ORAL USE) VIAL PO PRN (19:31)
[2019-07-04] MEDS ORDERED: MORPHINE SULFATE 4 MG/ML SYRINGE IVP STA (19:33)
[2019-07-04 21:00] LABS: Basophils # (A) 0.1 k/uL (0-0.2); Basophils % (A) 1 %; Eosinophils # (A) 0.2 k/uL (0-0.7); Eosinophils % (A) 2 %; HCT 43.2 % (39.0-53.0); Lymphocytes # (A) 2.2 k/uL (1.0-4.8); Lymphocytes % (A) 28 %; MCH 31.7 pg (25.0-35.0); MCHC 34.8 g/dL (31.0-37.0); MCV 91.3 fL (80.0-100.0); Mean Platelet Volume 7.2; Monocytes # (A) 0.3 k/uL (0-1.0); Monocytes % (A) 3 %; Neutrophils # (A) 5.1 k/uL (1.3-7.7); Neutrophils % (A) 64 %; Platelet Count 216 k/uL (150-450); RBC 4.74 m/uL (4.30-5.90); RDW 13.3 % (11.5-15.5); WBC 7.9 k/uL (3.8-10.6)
[2019-07-04 21:02] LABS: Partial Thromboplastin Time 25.2 sec (22.0-30.0); Prothrombin Time 10.6 sec (9.0-12.0)
[2019-07-04 21:11] LABS: ALT 11 U/L (4-49); AST 16 U/L (17-59); African American GFR (CKD) >90 (>60 ml/min/1.73 sqM); Albumin 4.4 g/dL (3.5-5.0); Alkaline Phosphatase 95 U/L (38-126); Amylase <30 U/L (30-110); Anion Gap 7 mmol/L; Blood Urea Nitrogen 9 mg/dL (9-20); Calcium 9.6 mg/dL (8.4-10.2); Carbon Dioxide 30 mmol/L (22-30); Chloride 104 mmol/L (98-107); Glucose 173 mg/dL (74-99); Non-African American GFR(CKD) >90 (>60 ml/min/1.73 sqM); Potassium 4.4 mmol/L (3.5-5.1); Sodium 141 mmol/L (137-145); Total Bilirubin 0.5 mg/dL (0.2-1.3)
[2019-07-04 21:12] LABS: Appearance,Urine Clear (Clear); Bilirubin,Urine Negative (Negative); Blood,Urine Negative (Negative); Color,Urine Yellow; Glucose,Urine (UA) Negative (Negative); Hyaline Casts,Urine 3 /lpf (0-2); Ketones,Urine Negative (Negative); Leukocyte Esterase,Urine Trace (Negative); Mucus,Urine Occasional /hpf; Nitrite,Urine Negative (Negative); PH, Urine 5.5 (5.0-8.0); Protein,Urine 1+ (Negative); RBC,Urine <1 /hpf (0-5); Specific Gravity,Urine 1.028 (1.001-1.035); Squamous Epithelial Cell,Urine 1 /hpf (0-4); WBC,Urine 3 /hpf (0-5)
--- NOTE | 2019-07-04 22:47 | CT ---
EXAMINATION TYPE: CT abdomen pelvis w con DATE OF EXAM: 07/04/2019 COMPARISON: 06/30/2019 HISTORY: Increased RT side abdomen pain, borderline appy [address] DLP: 1489.9 mGycm Automated exposure control for dose reduction was used. CONTRAST: Performed with IV Contrast, patient injected with 100 mL of Isovue 300. Lung bases are clear. There is no pleural effusion. Heart size is normal. Liver spleen pancreas appear normal. Stomach is intact. The bile ducts are not dilated. There are cli ps from cholecystectomy. There is no adrenal mass. Kidneys show satisfactory contrast opacification. There is no hydronephrosi s. Ureters are not dilated. Bladder distends smoothly. There is no inguinal hernia. There is no free fluid in the pelvis. Small bowel has normal size without evidence of a bowel obstruction. The appendix is anterior and fco ears normal. There is some fatty infiltration of the wall of the ascending colon and hepatic flexure of the colon. There is no mesenteric edema. There is no ascites or free air. The lumbar spine is intact. There is n o compression fracture. Bony pelvis is intact. IMPRESSION: There is mild wall thickening of the right colon probably due to some fatty infiltration. Mild nonspe cific colitis of the ascending colon cannot be entirely excluded. Normal appendix.
[2019-07-04] MEDS ORDERED: ACET/COD 300 MG/30 MG STARTER PACK 6 TAB BTL PO STA (23:09)
[2019-07-04 23:27] VITALS: BP 140/82; PULSE 80; TEMP 97.9
== END 2019-07-04 23:27 | disposition home or self-care (01) ==
LOC: EC 18:11
DX: K52.9 Noninfective gastroenteritis and colitis, unspecified (principal); I10 Essential (primary) hypertension; K21.9 Gastro-esophageal reflux disease without esophagitis; E78.5 Hyperlipidemia, unspecified; G47.30 Sleep apnea, unspecified; E07.9 Disorder of thyroid, unspecified; E11.40 Type 2 diabetes mellitus with diabetic neuropathy, unspecified; F31.9 Bipolar disorder, unspecified; Z79.4 Long term (current) use of insulin; Z79.899 Other long term (current) drug therapy; Z88.6 Allergy status to analgesic agent; Z88.8 Allergy status to other drugs, medicaments and biological substances; Z90.49 Acquired absence of other specified parts of digestive tract; Z98.1 Arthrodesis status; Z99.89 Dependence on other enabling machines and devices
CPT/HCPCS: 36415; 80053; 82150; 83690; 85025; 85610; 85730; 81001; 74177; 99284; 96374; J2270; Q9967

== ENCOUNTER 2019-07-08 11:17 | Observation (INO) | payer MEDICARE, OTHER ==
[2019-07-08] MEDS ORDERED: ONDANSETRON 4 MG/2 ML VIAL IVP STA (12:06)
[2019-07-08] MEDS ORDERED: FAMOTIDINE 20 MG/2 ML VIAL IV STA (12:06)
[2019-07-08] MEDS ORDERED: DICYCLOMINE 10 MG/ML 2 ML AMP IM STA (12:06)
[2019-07-08] MEDS ORDERED: SODIUM CHLORIDE 0.9% 1,000 ML IV STA (12:06)
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
[2019-07-08 12:13] LABS: Basophils # (A) 0.1 k/uL (0-0.2); Basophils % (A) 1 %; Eosinophils # (A) 0.1 k/uL (0-0.7); Eosinophils % (A) 1 %; HCT 44.5 % (39.0-53.0); HGB 15.4 gm/dL (13.0-17.5); Lymphocytes # (A) 1.7 k/uL (1.0-4.8); Lymphocytes % (A) 16 %; MCH 31.5 pg (25.0-35.0); MCHC 34.7 g/dL (31.0-37.0); MCV 90.7 fL (80.0-100.0); Monocytes # (A) 0.4 k/uL (0-1.0); Monocytes % (A) 4 %; Neutrophils % (A) 76 %; Platelet Count 262 k/uL (150-450); RBC 4.91 m/uL (4.30-5.90); RDW 13.2 % (11.5-15.5); WBC 10.4 k/uL (3.8-10.6)
[2019-07-08 12:21] LABS: ALT 12 U/L (4-49); AST 16 U/L (17-59); African American GFR (CKD) >90 (>60 ml/min/1.73 sqM); Albumin 4.4 g/dL (3.5-5.0); Alkaline Phosphatase 129 U/L (38-126); Amylase <30 U/L (30-110); Anion Gap 10 mmol/L; Blood Urea Nitrogen 12 mg/dL (9-20); Calcium 10.3 mg/dL (8.4-10.2); Carbon Dioxide 26 mmol/L (22-30); Chloride 102 mmol/L (98-107); Creatine Kinase 34 U/L (55-170); Glucose 249 mg/dL (74-99); Non-African American GFR(CKD) >90 (>60 ml/min/1.73 sqM); Potassium 4.6 mmol/L (3.5-5.1); Sodium 138 mmol/L (137-145); Total Bilirubin 0.6 mg/dL (0.2-1.3)
[2019-07-08 12:23] LABS: Partial Thromboplastin Time 23.4 sec (22.0-30.0); Prothrombin Time 10.3 sec (9.0-12.0)
[2019-07-08 12:57] LABS: Appearance,Urine Clear (Clear); Bilirubin,Urine Negative (Negative); Blood,Urine Negative (Negative); Color,Urine Yellow; Glucose,Urine (UA) 1+ (Negative); Ketones,Urine Negative (Negative); Leukocyte Esterase,Urine Negative (Negative); Mucus,Urine Rare /hpf; Nitrite,Urine Negative (Negative); PH, Urine 8.5 (5.0-8.0); Protein,Urine 1+ (Negative); Specific Gravity,Urine 1.023 (1.001-1.035); Urobilinogen,Urine <2.0 mg/dL (<2.0); WBC,Urine 1 /hpf (0-5)
--- NOTE | 2019-07-08 13:12 | XR ---
EXAMINATION TYPE: XR KUB DATE OF EXAM: 07/08/2019 COMPARISON: 07/04/2019 HISTORY: Diarrhea, abdominal TECHNIQUE: One view abdominal series FINDINGS: The osseous structures are intact. The bowel gas pattern is nonspecific. Lung bases are clear. Surg ical clips in the right upper quadrant noted. Arthropathy of the hips. Correlate for femoral acetabul ar impingement IMPRESSION: 1. Nonspecific abdomen.
[2019-07-08] MEDS ORDERED: METOCLOPRAMIDE 5 MG/ML 2 ML VIAL IVP STA (13:31)
[2019-07-08] MEDS ORDERED: LORazepam 2 MG/ML INJ IV STA (13:31)
[2019-07-08] MEDS ORDERED: HYDROmorphone 1 MG/ML 1 ML SYRINGE IVP STA (15:37)
[2019-07-08] MEDS ORDERED: LORazepam 2 MG/ML INJ IV PRN (15:58)
[2019-07-08] MEDS ORDERED: ONDANSETRON 4 MG/2 ML VIAL IVP PRN (15:58)
[2019-07-08] MEDS ORDERED: NALOXONE 0.4 MG/ML 1 ML VIAL IV PRN (15:58)
[2019-07-08] MEDS ORDERED: IPRATROPIUM-ALBUTEROL 3 ML NEB INHALATION PRN (16:18)
[2019-07-08] MEDS: SODIUM CHLORIDE 0.9% 1,000 ML IV SCH ×2 (16:26→22:23)
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
[2019-07-08 17:11] LABS: Glucose,Whole Blood 236 mg/dL (75-99)
[2019-07-08] MEDS: INSULIN ASPART (NovoLOG) 100 UNIT/ML VIAL SQ SCH (17:25)
[2019-07-08] MEDS: LORazepam 1 MG TAB PO SCH (17:26)
[2019-07-08] MEDS: PANTOPRAZOLE 40 MG/10 ML VIAL IV SCH (17:26)
[2019-07-08] MEDS: HYDROmorphone 1 MG/ML 1 ML SYRINGE IV PRN (19:58)
[2019-07-08] MEDS ORDERED: OXcarbazepine 150 MG TAB PO SCH (21:00)
[2019-07-08] MEDS ORDERED: QUEtiapine 400 MG TAB PO SCH (21:00)
[2019-07-08] MEDS ORDERED: LORazepam 1 MG TAB PO SCH (21:00)
[2019-07-08] MEDS: PREGABALIN 100 MG CAP PO SCH (22:18)
[2019-07-08] MEDS: metroNIDAZOLE 500 MG TAB PO SCH (22:18)
[2019-07-08] MEDS: DICYCLOMINE 20 MG TAB PO SCH (22:19)
[2019-07-08] MEDS: DULoxetine HCL 60 MG CAPSULE.DR PO SCH (22:19)
[2019-07-08] MEDS: OXcarbazepine 150 MG TAB PO SCH (22:20)
[2019-07-08 22:57] LABS: Glucose,Whole Blood 166 mg/dL (75-99)
[2019-07-09] MEDS: HYDROmorphone 1 MG/ML 1 ML SYRINGE IV PRN ×3 (01:05→10:09)
[2019-07-09] MEDS ORDERED: LEVOTHYROXINE 75 MCG TAB PO SCH (06:30)
[2019-07-09 07:01] LABS: Glucose,Whole Blood 173 mg/dL (75-99)
[2019-07-09] MEDS: LORazepam 1 MG TAB PO SCH (07:33)
[2019-07-09] MEDS: DULoxetine HCL 60 MG CAPSULE.DR PO SCH (07:33)
[2019-07-09] MEDS: metroNIDAZOLE 500 MG TAB PO SCH (07:33)
[2019-07-09] MEDS: INSULIN ASPART (NovoLOG) 100 UNIT/ML VIAL SQ SCH ×2 (07:34→11:49)
[2019-07-09] MEDS: PANTOPRAZOLE 40 MG/10 ML VIAL IV SCH (07:34)
[2019-07-09] MEDS: OXcarbazepine 150 MG TAB PO SCH (07:35)
[2019-07-09] MEDS: DICYCLOMINE 20 MG TAB PO SCH (07:35)
[2019-07-09] MEDS: PREGABALIN 100 MG CAP PO SCH (07:42)
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
[2019-07-09 08:34] VITALS: BP 146/80; RESP 18; TEMP 98.4
[2019-07-09] MEDS ORDERED: ATORVASTATIN 20 MG TAB PO SCH (09:00)
[2019-07-09] MEDS ORDERED: LOSARTAN 50 MG TAB PO SCH (09:00)
--- NOTE | 2019-07-09 09:15 | P.PN ---
Subjective Progress Note Date: 07/09/19 Abdominal pain improved. Tolerating clears. Continue antibiotics. Outpatient colonoscopy described. No surgical intervention needed. Objective - Vital Signs Vital signs: Vital Signs Temp 98.4 F 07/09/19 07:27 Pulse 110 H 07/09/19 07:27 Resp 18 07/09/19 07:27 BP 146/80 07/09/19 07:27 Pulse Ox 94 L 07/09/19 07:27 Intake & Output 07/08/19 07/09/19 07/09/19 18:59 06:59 18:59 Intake Total 750 Balance 750 Weight 104.326 kg Intake: Intake, IV Titration 750 Amount Sodium Chloride 0.9% 1, 750 000 ml @ 125 mls/hr IV . Q8H [facility] Rx#:[id number] Other: Voiding Method Toilet # Voids 1 - Labs CBC & Chem 7: 07/08/19 11:54 07/08/19 11:54 Labs: Abnormal Lab Results - Last 24 Hours (Table) 07/08/19 07/08/19 07/08/19 Range/Units 11:54 11:54 12:50 Neutrophils # 8.0 H (1.3-7.7) k/uL Glucose 249 H (74-99) mg/dL POC Glucose (mg/dL) (75-99) mg/dL Calcium 10.3 H (8.4-10.2) mg/dL AST 16 L (17-59) U/L Alkaline Phosphatase 129 H (38-126) U/L Creatine Kinase 34 L (55-170) U/L Amylase <30 L (30-110) U/L Urine pH 8.5 H (5.0-8.0) Urine Protein 1+ H (Negative) Urine Glucose (UA) 1+ H (Negative) Urine Mucus Rare H (None) /hpf 07/08/19 07/08/19 07/09/19 Range/Units 17:10 22:55 06:59 Neutrophils # (1.3-7.7) k/uL Glucose (74-99) mg/dL POC Glucose (mg/dL) 236 H 166 H 173 H (75-99) mg/dL Calcium (8.4-10.2) mg/dL AST (17-59) U/L Alkaline Phosphatase (38-126) U/L Creatine Kinase (55-170) U/L Amylase (30-110) U/L Urine pH (5.0-8.0) Urine Protein (Negative) Urine Glucose (UA) (Negative) Urine Mucus (None) /hpf
[2019-07-09] MEDS: SODIUM CHLORIDE 0.9% 1,000 ML IV SCH (09:42)
[2019-07-09 09:56] VITALS: PULSE 88
--- NOTE | 2019-07-09 10:51 | P.DS ---
Providers Date of admission: 07/08/19 15:58 Expected date of discharge: 07/09/19 Attending physician: Olga Sheppard MD Consults: 07/08/19 15:59 Consult Physician Urgent Consulting Provider: Destinee Barney Consult Reason/Comments: Intractable vomiting, colitis Do you want consulting provider notified?: Yes Primary care physician: [facility] Course: 54-year-old male with PMH of COPD, hypertension, diabetes mellitus on insulin presents the ED for abdominal pain and intractable nausea and vomiting. Patient reports abdominal pain that has been ongoing for the past 5 days. Pain is located on the right side, described as "bowel twisting sensation". Patient was seen in the ED on 07/04/2019 for similar complaints, CT abdomen and pelvis at that time showed right-sided colitis possible. In the ED, vital signs were stable except for heart rate in the 110s. CBC and coagulation panel was relatively benign. CMP showed glucose of 249, calcium of 10.3, alkaline phosphatase 129. Troponin was less than 0.012. Amylase and lipase was negative. Urinalysis showed proteinuria. KUB was unremarkable. Patient is admitted for intractable nausea and vomiting with general surgery on consult. His abdominal pain was thought to be related to colitis. He was given normal saline. He was given Protonix IV. He was given Zofran as needed. He was given Bentyl as needed. Pain was controlled with Dilaudid. Started on Rocephin and Flagyl. General surgery was consulted and recommended outpatient follow-up for colonoscopy. His home medications were resumed. Patient was seen and examined. No acute events overnight. No further vomiting. Abdominal pain well-controlled. He denies a chest, shortness breath or palpitations. No fever or chills. General: [non toxic], [no distress], [appears at stated age] Derm: [warm], [dry] Head: [atraumatic], [normocephalic], [symmetric] Eyes: [EOMI], [no lid lag], [anicteric sclera] Mouth: [no lip lesion], [mucus membranes moist] Cardiovascular: [S1S2 reg], [tachycardia], [positive DP pulse bilateral], Lungs: [CTA bilateral], [no rhonchi, no rales] , [no accessory muscle use] Abdominal: [soft], [improved right lower quadrant tenderness without rebound, negative Orellana's], [no guarding], [no appreciable organomegaly] Ext: [no gross muscle atrophy], [no edema], [no contractures] Neuro: [no focal neuro deficits] Psych: [Alert], [oriented], [slow to respond] Intractable nausea and vomiting with abdominal pain from colitis Diabetes mellitus with hyperglycemia Elevated alkaline phosphatase COPD not an acute exacerbation Hypothyroidism Hypertension CT abdomen and pelvis from July 04 shows possible right-sided colitis. Plans: Protonix IV. Continue normal saline at 125 mL per hour. Zofran as needed for nausea or vomiting. Bentyl as needed for abdominal cramping. Pain control with Dilaudid as needed. Start Rocephin and Flagyl. Stool for occult blood, WBC and culture. Follow general surgery consultation. Full liquid diet and advance. [id number] glucose 173. Plans: Insulin sliding scope. Regular Accu-Cheks. Hypoglycemic precautions. Alkaline phosphatase 129. Likely vitamin D deficiency. Plans: Continue to monitor. Plans: Albuterol neb as needed for shortness of breath and wheezing. Plans: Resume Synthroid. BP 146/80. Plans: Continue losartan. Monitor vitals, adjust medications as necessary. Resume home medication for history of epilepsy. [Advance diet. Likely DC today if able to tolerate. Follow-up surgery for colonoscopy in the outpatient setting. No antibiotics required for simple colitis.] Pertinent Studies: KUB Patient Condition at Discharge: Stable Plan - Discharge Summary Discharge Rx Participant: No New Discharge Prescriptions: New Dicyclomine [Bentyl] 20 mg PO TID #21 tab Continue QUEtiapine [SEROquel] 800 mg PO HS DULoxetine HCL [Cymbalta] 60 mg PO BID Dulaglutide [Trulicity] 0.75 mg SQ Q7D Levothyroxine Sodium [Synthroid] 150 mcg PO DAILY metFORMIN HCL [Glucophage] 1,000 mg PO BID Atorvastatin [Lipitor] 20 mg PO DAILY Pregabalin [Lyrica] 100 mg PO BID #60 cap LORazepam [Ativan] 2 mg PO BID@0900,1400 Insulin Degludec [Tresiba Flextouch U-200] 70 units SQ DAILY oxyCODONE-APAP 10-325MG [Percocet 10-325 mg] 1 tab PO QID Losartan Potassium 50 mg PO DAILY OXcarbazepine [Trileptal] 150 mg PO BID Albuterol Inhaler [Ventolin Hfa Inhaler] 2 puff INHALATION RT-Q6H PRN #1 inh PRN Reason: Shortness Of Breath rOPINIRole HCL [Requip] 5 mg PO HS OXcarbazepine [Trileptal] 300 mg PO BID LORazepam [Ativan] 1 mg PO HS Ipratropium-Albuterol Nebulize [Duoneb 0.5 mg-3 mg/3 ml Soln] 3 ml INHALATION RT-QID Formoterol Fumarate [Perforomist] 20 mcg INHALATION RT-BID Budesonide 1 mg INHALATION RT-BID Famotidine 20 mg PO DAILY #60 tab Discontinued Omeprazole 20 mg PO DAILY Dicyclomine [Bentyl] 20 mg PO TID Amoxic-Pot Clav 875-125Mg [Augmentin 875-125] 1 tab PO Q12HR 7 Days #14 tablet Discharge Medication List DULoxetine HCL [Cymbalta] 60 mg PO BID 12/05/13 [History] QUEtiapine [SEROquel] 800 mg PO HS 12/05/13 [History] Dulaglutide [Trulicity] 0.75 mg SQ Q7D 01/08/16 [History] Atorvastatin [Lipitor] 20 mg PO DAILY 09/11/16 [History] Levothyroxine Sodium [Synthroid] 150 mcg PO DAILY 09/11/16 [History] metFORMIN HCL [Glucophage] 1,000 mg PO BID 09/11/16 [History] Pregabalin [Lyrica] 100 mg PO BID #60 cap 09/16/16 [Rx] LORazepam [Ativan] 2 mg PO BID@0900,1400 01/14/17 [History] Insulin Degludec [Tresiba Flextouch U-200] 70 units SQ DAILY 05/05/19 [History] Losartan Potassium 50 mg PO DAILY 05/05/19 [History] OXcarbazepine [Trileptal] 150 mg PO BID 05/05/19 [History] oxyCODONE-APAP 10-325MG [Percocet 10-325 mg] 1 tab PO QID 05/05/19 [History] Albuterol Inhaler [Ventolin Hfa Inhaler] 2 puff INHALATION RT-Q6H PRN #1 inh 11/01/19 [Rx] Budesonide 1 mg INHALATION RT-BID 07/08/19 [History] Formoterol Fumarate [Perforomist] 20 mcg INHALATION RT-BID 07/08/19 [History] Ipratropium-Albuterol Nebulize [Duoneb 0.5 mg-3 mg/3 ml Soln] 3 ml INHALATION RT-QID 07/08/19 [History] LORazepam [Ativan] 1 mg PO HS 07/08/19 [History] OXcarbazepine [Trileptal] 300 mg PO BID 07/08/19 [History] rOPINIRole HCL [Requip] 5 mg PO HS 07/08/19 [History] Dicyclomine [Bentyl] 20 mg PO TID #21 tab 07/09/19 [Rx] Famotidine 20 mg PO DAILY #60 tab 07/09/19 [Rx] Follow up Appointment(s)/Referral(s): Faith Olivera MD [Primary Care Provider] - 1-2 days Destinee Barney MD [STAFF PHYSICIAN] - 4 Weeks Activity/Diet/Wound Care/Special Instructions: Diet: Low fiber Follow-up PCP within 3 days of discharge. Follow-up general surgery within 1 month of discharge. He will need a colonoscopy after resolution of your colitis. Take all medications as advised. Discharge Disposition: HOME SELF-CARE
[2019-07-09 11:12] LABS: Glucose,Whole Blood 166 mg/dL (75-99)
== END 2019-07-09 12:07 | disposition home or self-care (01) ==
LOC: EC 11:17 → 4SSUR 15:58
PROVIDERS: ADMIT Family Medicine; ATTEND Family Medicine
DX: K52.9 Noninfective gastroenteritis and colitis, unspecified (principal); E11.65 Type 2 diabetes mellitus with hyperglycemia; R74.8 Abnormal levels of other serum enzymes; J44.9 Chronic obstructive pulmonary disease, unspecified; E03.9 Hypothyroidism, unspecified; I10 Essential (primary) hypertension; E78.5 Hyperlipidemia, unspecified; K21.9 Gastro-esophageal reflux disease without esophagitis; G47.30 Sleep apnea, unspecified; F17.210 Nicotine dependence, cigarettes, uncomplicated; J45.909 Unspecified asthma, uncomplicated; K76.9 Liver disease, unspecified; F90.9 Attention-deficit hyperactivity disorder, unspecified type; F31.9 Bipolar disorder, unspecified; G62.9 Polyneuropathy, unspecified; R41.3 Other amnesia; G40.909 Epilepsy, unspecified, not intractable, without status epilepticus; Z79.4 Long term (current) use of insulin; Z79.890 Hormone replacement therapy; Z79.891 Long term (current) use of opiate analgesic; Z79.899 Other long term (current) drug therapy; Z79.51 Long term (current) use of inhaled steroids; Z79.2 Long term (current) use of antibiotics; Z79.52 Long term (current) use of systemic steroids; Z88.8 Allergy status to other drugs, medicaments and biological substances; Z86.14 Personal history of Methicillin resistant Staphylococcus aureus infection; Z87.442 Personal history of urinary calculi; Z82.49 Family history of ischemic heart disease and other diseases of the circulatory system
CPT/HCPCS: 96376 ×2; 96365; 96366; 96375 ×2; 96361; 96372; 99285; 36415; 93005; 80053; 82150; 82550; 83690; 84484; 85025; 85610; 85730; 81001; 74018; G0378 ×2; J2060; J0500; J2765; J2405; J0696 ×2; J1170 ×2; C9113 ×2

== ENCOUNTER 2019-08-10 09:01 | Day surgery (SDC) | payer MEDICARE, OTHER ==
[2019-08-09 08:25] VITALS: BMI 28.3
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
[~2019-08-10 09:01] MED LIST changes: -DEXAMETHASONE SOD PHOSPHATE 10 MG/ML 1 ML VIAL IV ONE; -HYDROmorphone 1 MG/ML 1 ML SYRINGE IVP PRN; -ONDANSETRON 4 MG/2 ML VIAL IVP ONE; -SCOPOLAMINE 1.5MG/72HR PATCH TRANSDERM ONE; -ceFAZolin 2 GM in SODIUM CHLORIDE 0.9% 100 ML IVPB ONE
[2019-08-10 10:10] VITALS: TEMP 97.8
[2019-08-10] MEDS ORDERED: PROPOFOL 10 MG/ML 20 ML VIAL IV ONE (10:12)
[2019-08-10 10:13] LABS: Glucose,Whole Blood 135 mg/dL (75-99)
--- NOTE | 2019-08-10 10:50 | P.PCN ---
Date of Procedure: 08/10/19 Description of Procedure: PREOPERATIVE DIAGNOSIS: Colonoscopy screening POSTOPERATIVE DIAGNOSIS: Tubular adenoma ascending colon Tubular adenoma transverse colon Tubular adenoma descending colon Tubular adenoma sigmoid colon Scattered diverticulosis Lipoma transverse colon Colitis ascending colon External hemorrhoids, grade 3 Internal hemorrhoids, grade 2 OPERATION: Colonoscopy to the ileocecal valve and appendiceal orifice. Colonoscopy with multiple hot snare polypectomies Colonoscopy with cold forceps biopsies SURGEON: Destinee Barney MD. ANESTHESIA: MAC. INDICATIONS: The patient is an 54-year-old male who presents presents for colonoscopy screening. Benefits and risks were described and informed consent was obtained. DESCRIPTION OF PROCEDURE: The patient had undergone Golytely prep. He had been brought into the operating room and laid in the left lateral decubitus position. After adequate intravenous sedation, the rectum was examined with 2% lidocaine jelly. The prostate was unremarkable. External hemorrhoids were encountered. The rectal tone was within normal limits. No lesions were palpated in the rectal vault. An Olympus colonoscope was advanced until the ileocecal valve and appendiceal orifice were clearly viewed. The prep was poor. Scattered diverticulosis was encountered. Multiple colonic polyps were found and removed with cold forceps biopsies or snare polypectomy. Focal colitis was found of the ascending colon with biopsy. Lipoma of the mid transverse colon was identified of 2 cm undisturbed. Retroflexion of the scope demonstrated grade 2 internal hemorrhoids without active bleeding or inflammation. The colon was desufflated. The patient had tolerated the procedure well. Withdrawal time was over 6 minutes. FINDINGS: Aronchick preparation quality scale 3 (1-5) Internal hemorrhoids, grade 2 External hemorrhoids, grade 3 No arteriovenous malformations Scattered diverticulosis Lipoma 2 cm mid transverse colon Focal colitis ascending colon with cold forceps biopsies obtained Removal of 4 polyps: - Snare polypectomy ascending colon, 5 mm tubulovillous adenoma polyp--removed but not retrieved - Snare polypectomy hepatic flexure, 8 mm flat villous adenoma polyp. - Snare polypectomy at 30 cm from anal verge, 8 mm flat villous adenoma polyp, descending colon - Snare polypectomy at 25 cm from the anal verge, 12 mm polyp, sigmoid colon RECOMMENDATIONS: Given severity of tubular adenomas, recommend repeat colonoscopy 1 year, 2020. Plan - Discharge Summary Discharge Rx Participant: No New Discharge Prescriptions: Continue QUEtiapine [SEROquel] 800 mg PO HS DULoxetine HCL [Cymbalta] 60 mg PO BID Dulaglutide [Trulicity] 0.75 mg SQ SA Levothyroxine Sodium [Synthroid] 150 mcg PO DAILY metFORMIN HCL [Glucophage] 1,000 mg PO BID Atorvastatin [Lipitor] 20 mg PO 1500 Pregabalin [Lyrica] 100 mg PO BID #60 cap LORazepam [Ativan] 2 mg PO BID@0900,1400 Insulin Degludec [Tresiba Flextouch U-200] 50 units SQ HS oxyCODONE-APAP 10-325MG [Percocet 10-325 mg] 1 tab PO QID PRN PRN Reason: Pain Losartan Potassium 50 mg PO 1500 OXcarbazepine [Trileptal] 150 mg PO BID Albuterol Inhaler [Ventolin Hfa Inhaler] 2 puff INHALATION RT-Q6H PRN #1 inh PRN Reason: Shortness Of Breath rOPINIRole HCL [Requip] 5 mg PO HS OXcarbazepine [Trileptal] 300 mg PO BID LORazepam [Ativan] 1 mg PO HS Dicyclomine [Bentyl] 20 mg PO TID #21 tab Famotidine 20 mg PO DAILY #60 tab Omeprazole [PriLOSEC] 20 mg PO AC-BRKFST Albuterol Nebulized [Ventolin Nebulized] 1.25 mg INHALATION DIRECTED PRN PRN Reason: sob Discharge Medication List DULoxetine HCL [Cymbalta] 60 mg PO BID 12/05/13 [History] QUEtiapine [SEROquel] 800 mg PO HS 12/05/13 [History] Dulaglutide [Trulicity] 0.75 mg SQ SA 01/08/16 [History] Atorvastatin [Lipitor] 20 mg PO 1500 09/11/16 [History] Levothyroxine Sodium [Synthroid] 150 mcg PO DAILY 09/11/16 [History] metFORMIN HCL [Glucophage] 1,000 mg PO BID 09/11/16 [History] Pregabalin [Lyrica] 100 mg PO BID #60 cap 09/16/16 [Rx] LORazepam [Ativan] 2 mg PO BID@0900,1400 01/14/17 [History] Insulin Degludec [Tresiba Flextouch U-200] 50 units SQ HS 05/05/19 [History] Losartan Potassium 50 mg PO 1500 05/05/19 [History] OXcarbazepine [Trileptal] 150 mg PO BID 05/05/19 [History] oxyCODONE-APAP 10-325MG [Percocet 10-325 mg] 1 tab PO QID PRN 05/05/19 [History] Albuterol Inhaler [Ventolin Hfa Inhaler] 2 puff INHALATION RT-Q6H PRN #1 inh 05/06/19 [Rx] LORazepam [Ativan] 1 mg PO HS 07/08/19 [History] OXcarbazepine [Trileptal] 300 mg PO BID 07/08/19 [History] rOPINIRole HCL [Requip] 5 mg PO HS 07/08/19 [History] Dicyclomine [Bentyl] 20 mg PO TID #21 tab 07/09/19 [Rx] Famotidine 20 mg PO DAILY #60 tab 07/09/19 [Rx] Albuterol Nebulized [Ventolin Nebulized] 1.25 mg INHALATION DIRECTED PRN 08/09/19 [History] Omeprazole [PriLOSEC] 20 mg PO AC-BRKFST 08/09/19 [History] Follow up Appointment(s)/Referral(s): Destinee Barney MD [STAFF PHYSICIAN] - 08/16/19 Patient Instructions/Handouts: *[facility] - (Anesthesia) Endoscopy Discharge Instructions, Hemorrhoids (DC), Diverticulosis (DC), Microscopic Colitis (DC), Colorectal Polyps (IP), Diverticulosis Diet (GEN), Colonoscopy (DC) Activity/Diet/Wound Care/Special Instructions: Repeat colonoscopy 2 years, 2021 Discharge Disposition: HOME SELF-CARE
[2019-08-10 11:10] VITALS: BP 100/67; PULSE 67; RESP 18
== END 2019-08-10 11:42 | disposition home or self-care (01) ==
LOC: ORWHC2ENDO 09:01
PROVIDERS: ATTEND Surgery Plastic and Reconstructive Surgery
DX: Z12.11 Encounter for screening for malignant neoplasm of colon (principal); D12.3 Benign neoplasm of transverse colon; D12.5 Benign neoplasm of sigmoid colon; K63.5 Polyp of colon; K57.90 Diverticulosis of intestine, part unspecified, without perforation or abscess without bleeding; D17.79 Benign lipomatous neoplasm of other sites; K52.9 Noninfective gastroenteritis and colitis, unspecified; K64.1 Second degree hemorrhoids; K64.2 Third degree hemorrhoids; J44.9 Chronic obstructive pulmonary disease, unspecified; K21.9 Gastro-esophageal reflux disease without esophagitis; E78.5 Hyperlipidemia, unspecified; K76.9 Liver disease, unspecified; M19.90 Unspecified osteoarthritis, unspecified site; G47.33 Obstructive sleep apnea (adult) (pediatric); E07.9 Disorder of thyroid, unspecified; E11.42 Type 2 diabetes mellitus with diabetic polyneuropathy; G43.909 Migraine, unspecified, not intractable, without status migrainosus; Z87.442 Personal history of urinary calculi; M10.9 Gout, unspecified; Z87.820 Personal history of traumatic brain injury; R41.3 Other amnesia; Z86.14 Personal history of Methicillin resistant Staphylococcus aureus infection; Z90.49 Acquired absence of other specified parts of digestive tract; Z98.1 Arthrodesis status; F17.200 Nicotine dependence, unspecified, uncomplicated; Z82.49 Family history of ischemic heart disease and other diseases of the circulatory system; Z79.890 Hormone replacement therapy; Z79.4 Long term (current) use of insulin; Z79.891 Long term (current) use of opiate analgesic; Z79.899 Other long term (current) drug therapy; Z88.6 Allergy status to analgesic agent; Z88.8 Allergy status to other drugs, medicaments and biological substances
CPT/HCPCS: 45380; 45385; 88305

== ENCOUNTER 2020-10-03 07:03 | Day surgery (SDC) | payer MEDICARE, OTHER ==
[2020-09-28 10:34] VITALS: BMI 29.7
[~2020-10-03 07:03] MED LIST changes: -LIDOCAINE 1% 20 ML VIAL (10MG/ML) FOR IV START INTRADERMA PRN
[2020-10-03 07:24] VITALS: TEMP 97
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
[2020-10-03] MEDS ORDERED: LIDOCAINE 1% (10MG/ML) FOR IV START INTRADERMA ONE (07:41)
[2020-10-03 07:45] LABS: Glucose,Whole Blood 222 mg/dL (75-99)
[2020-10-03] MEDS ORDERED: PROPOFOL 10 MG/ML 20 ML VIAL IV ONE (07:46)
[2020-10-03 08:22] VITALS: RESP 16
--- NOTE | 2020-10-03 08:25 | P.PCN ---
Date of Procedure: 10/03/20 Description of Procedure: PREOPERATIVE DIAGNOSIS: Personal history of colon polyps POSTOPERATIVE DIAGNOSIS: Tubular adenoma hepatic flexure Sigmoid diverticulosis with diverticulitis, mild Internal hemorrhoids, grade 3 OPERATION: Colonoscopy to the ileocecal valve and appendiceal orifice, cecum Colonoscopy with hot snare polypectomy SURGEON: Destinee Barney MD. ANESTHESIA: MAC. INDICATIONS: The patient is an 55-year-old male who presents personal history of colon polyps. Last colonoscopy less than 5 years. Benefits and risks were described and informed consent was obtained. DESCRIPTION OF PROCEDURE: The patient had undergone Suprep. The patient had been brought into the operating room and laid in the left lateral decubitus position. After adequate intravenous sedation, the rectum was examined with 2% lidocaine jelly. The prostate was unremarkable. External hemorrhoids were encountered. The rectal tone was within normal limits. No lesions were palpated in the rectal vault. An Olympus colonoscope was advanced until the cecum, ileocecal valve and appendiceal orifice were clearly viewed. The prep was fair. Sigmoid diverticulosis was encountered. Colonic polyps were found and removed. No evidence of focal colitis was found. Retroflexion of the scope demonstrated grade 2 internal hemorrhoids without active bleeding or inflammation. The colon was desufflated. The patient had tolerated the procedure well. Withdrawal time was over 6 minutes. FINDINGS: Aronchick preparation quality scale 2 (1-5) Internal hemorrhoids, grade 3 External hemorrhoids, grade 2 No arteriovenous malformations Abdomen redundant sigmoid colon requiring abdominal pressure Sigmoid diverticulosis with mild diverticulitis Removal of 1 polyp: - Snare polypectomy at hepatic flexure, 6 mm tubulovillous adenoma polyp. No focal colitis. RECOMMENDATIONS: Repeat colonoscopy 2 years, 2022 Plan - Discharge Summary Discharge Rx Participant: No New Discharge Prescriptions: Continue QUEtiapine [SEROquel] 800 mg PO HS DULoxetine HCL [Cymbalta] 60 mg PO BID Dulaglutide [Trulicity] 0.75 mg SQ SA Levothyroxine Sodium [Synthroid] 150 mcg PO DAILY Atorvastatin [Lipitor] 20 mg PO 1500 Pregabalin [Lyrica] 100 mg PO BID #60 cap LORazepam [Ativan] 2 mg PO BID@0900,1400 Insulin Degludec [Tresiba Flextouch U-200] 40 units SQ HS oxyCODONE-APAP 10-325MG [Percocet 10-325 mg] 1 tab PO QID PRN PRN Reason: Pain Losartan Potassium 25 mg PO 1500 OXcarbazepine [Trileptal] 150 mg PO BID Albuterol Inhaler (Mhu) [Ventolin Hfa Inhaler (Mhu)] 2 puff INHALATION RT-Q6H PRN #1 inh PRN Reason: Shortness Of Breath rOPINIRole HCL [Requip] 5 mg PO HS OXcarbazepine [Trileptal] 300 mg PO BID LORazepam [Ativan] 1 mg PO HS Famotidine 20 mg PO DAILY #60 tab Omeprazole [PriLOSEC] 20 mg PO AC-BRKFST Albuterol Nebulized [Ventolin Nebulized] 1.25 mg INHALATION DIRECTED PRN PRN Reason: sob Pioglitazone [Actos] 30 mg PO DAILY Discharge Medication List DULoxetine HCL [Cymbalta] 60 mg PO BID 12/05/13 [History] QUEtiapine [SEROquel] 800 mg PO HS 12/05/13 [History] Dulaglutide [Trulicity] 0.75 mg SQ SA 01/08/16 [History] Atorvastatin [Lipitor] 20 mg PO 1500 09/11/16 [History] Levothyroxine Sodium [Synthroid] 150 mcg PO DAILY 09/11/16 [History] Pregabalin [Lyrica] 100 mg PO BID #60 cap 09/16/16 [Rx] LORazepam [Ativan] 2 mg PO BID@0900,1400 01/14/17 [History] Insulin Degludec [Tresiba Flextouch U-200] 40 units SQ HS 05/05/19 [History] Losartan Potassium 25 mg PO 1500 05/05/19 [History] OXcarbazepine [Trileptal] 150 mg PO BID 05/05/19 [History] oxyCODONE-APAP 10-325MG [Percocet 10-325 mg] 1 tab PO QID PRN 05/05/19 [History] Albuterol Inhaler (Mhu) [Ventolin Hfa Inhaler (Mhu)] 2 puff INHALATION RT-Q6H PRN #1 inh 05/06/19 [Rx] LORazepam [Ativan] 1 mg PO HS 07/08/19 [History] OXcarbazepine [Trileptal] 300 mg PO BID 07/08/19 [History] rOPINIRole HCL [Requip] 5 mg PO HS 07/08/19 [History] Famotidine 20 mg PO DAILY #60 tab 07/09/19 [Rx] Albuterol Nebulized [Ventolin Nebulized] 1.25 mg INHALATION DIRECTED PRN 08/09/19 [History] Omeprazole [PriLOSEC] 20 mg PO AC-BRKFST 08/09/19 [History] Pioglitazone [Actos] 30 mg PO DAILY 09/28/20 [History] Follow up Appointment(s)/Referral(s): Destinee Barney MD [STAFF PHYSICIAN] - As Needed Patient Instructions/Handouts: Colorectal Polyps (GEN), Diverticulosis Diet (GEN) Activity/Diet/Wound Care/Special Instructions: Repeat colonoscopy 2 years, 2022 Discharge Disposition: HOME SELF-CARE
[2020-10-03 08:34] LABS: Glucose,Whole Blood 222 mg/dL (75-99)
[2020-10-03 08:37] VITALS: BP 130/78; PULSE 87
--- NOTE | 2020-10-05 12:11 | CDI ---
Outpatient Documentation Clarification Form Date: 10/05/20 CDS/Dentures Lab Technician Name: Tamar Beckman Phone: If any questions, call Katelyn England Wood Die Maker at [phone] Patient Name: Diallo Perez Admit Date: 10/03/20 Discharge Date: 10/03/20 ATTENTION: The [facility] Coding Staff appreciate your assistance in clarifying documentation. Please respond to the clarification below the line at the bottom and electronically sign. The [facility] Coding staff will review the response and follow-up if needed. Please note: Queries are made part of the Legal Health Record. If you have any questions, please contact the Wood Die Maker. Dear Dr. Barney, Please provide clarification as to from what part of the colon the polyp was removed. The procedure note states the Hepatic Flexure and the path report documents the Ascending colon. Please clarify, Thank you for your kind consideration. Hepatic Flexure K[facility]06/2020 [facility]
== END 2020-10-03 09:10 | disposition home or self-care (01) ==
LOC: ORWHC2ENDO 07:03
PROVIDERS: ATTEND Surgery Plastic and Reconstructive Surgery
DX: Z12.11 Encounter for screening for malignant neoplasm of colon (principal); D12.3 Benign neoplasm of transverse colon; K57.30 Diverticulosis of large intestine without perforation or abscess without bleeding; K64.2 Third degree hemorrhoids; K64.1 Second degree hemorrhoids; Z86.010 Personal history of colon polyps; K21.9 Gastro-esophageal reflux disease without esophagitis; I10 Essential (primary) hypertension; E78.5 Hyperlipidemia, unspecified; G47.33 Obstructive sleep apnea (adult) (pediatric); Z99.89 Dependence on other enabling machines and devices; M10.9 Gout, unspecified; E11.9 Type 2 diabetes mellitus without complications; E07.9 Disorder of thyroid, unspecified; G25.81 Restless legs syndrome; R41.3 Other amnesia; K76.9 Liver disease, unspecified; J44.9 Chronic obstructive pulmonary disease, unspecified; M19.90 Unspecified osteoarthritis, unspecified site; Z86.14 Personal history of Methicillin resistant Staphylococcus aureus infection; F17.200 Nicotine dependence, unspecified, uncomplicated; Z87.442 Personal history of urinary calculi; Z82.49 Family history of ischemic heart disease and other diseases of the circulatory system; Z79.890 Hormone replacement therapy; Z79.4 Long term (current) use of insulin; Z79.891 Long term (current) use of opiate analgesic; Z88.6 Allergy status to analgesic agent; Z88.8 Allergy status to other drugs, medicaments and biological substances
CPT/HCPCS: 88305; 45385; J2704

== ENCOUNTER 2021-04-11 18:28 | Emergency (ER) | payer MEDICARE, OTHER ==
[2021-04-11 18:47] LABS: Glucose,Whole Blood 316 mg/dL (75-99)
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
--- NOTE | 2021-04-11 21:14 | XR ---
EXAMINATION TYPE: XR foot complete RT DATE OF EXAM: 04/11/2021 COMPARISON: NONE HISTORY: Black great toe TECHNIQUE: 3 views FINDINGS: There is mild hallux valgus. Metatarsals are intact. I see no fracture nor dislocation. I s ee no focal bone destruction. The toes appear intact. There is some soft tissue swelling at the plant ar aspect of the forefoot. IMPRESSION: Hallux valgus. No definite sign of osteomyelitis. Mild soft tissue swelling in the anteri or foot.
[2021-04-11 21:34] VITALS: RESP 20
[2021-04-11 21:35] VITALS: BP 122/86; PULSE 80; TEMP 98.2
== END 2021-04-11 21:35 | disposition home or self-care (01) ==
LOC: EC 18:28
DX: S90.421A Blister (nonthermal), right great toe, initial encounter (principal); E11.40 Type 2 diabetes mellitus with diabetic neuropathy, unspecified; J44.9 Chronic obstructive pulmonary disease, unspecified; M19.90 Unspecified osteoarthritis, unspecified site; E78.5 Hyperlipidemia, unspecified; K21.9 Gastro-esophageal reflux disease without esophagitis; M10.9 Gout, unspecified; F31.9 Bipolar disorder, unspecified; F41.9 Anxiety disorder, unspecified; F17.200 Nicotine dependence, unspecified, uncomplicated; F12.90 Cannabis use, unspecified, uncomplicated; Z79.4 Long term (current) use of insulin; Z79.890 Hormone replacement therapy; Z79.51 Long term (current) use of inhaled steroids; Z79.899 Other long term (current) drug therapy; X58.XXXA Exposure to other specified factors, initial encounter
CPT/HCPCS: 36415; 99283

== ENCOUNTER 2023-04-02 23:10 | Emergency (ER) | payer MEDICARE, OTHER ==
[2023-04-02 23:24] VITALS: TEMP 98.4
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
[2023-04-03 01:17] LABS: Basophils % (A) 0 %; Eosinophils # (A) 0.1 k/uL (0-0.7); Eosinophils % (A) 1 %; HCT 40.9 % (39.0-53.0); Lymphocytes # (A) 3.4 k/uL (1.0-4.8); Lymphocytes % (A) 38 %; MCHC 34.1 g/dL (31.0-37.0); Mean Platelet Volume 7.8; Monocytes # (A) 0.6 k/uL (0-1.0); Monocytes % (A) 6 %; Neutrophils # (A) 4.7 k/uL (1.3-7.7); Neutrophils % (A) 53 %; Platelet Count 250 k/uL (150-450); RDW 13.1 % (11.5-15.5)
[2023-04-03] MEDS: DIPH,PERTUS(ACELL)TETVAC-LF 0.5 ML VIAL IM ONE ×2 (01:24→01:34)
[2023-04-03 01:26] LABS: ALT 51 U/L (4-49); AST 40 U/L (17-59); African American GFR (CKD) >90 (>60 ml/min/1.73 sqM); Albumin 3.7 g/dL (3.5-5.0); Alkaline Phosphatase 296 U/L (38-126); Anion Gap 10 mmol/L; Blood Urea Nitrogen 23 mg/dL (9-20); Calcium 9.2 mg/dL (8.4-10.2); Carbon Dioxide 24 mmol/L (22-30); Chloride 105 mmol/L (98-107); Glucose 161 mg/dL (74-99); Non-African American GFR(CKD) 79 (>60 ml/min/1.73 sqM); Potassium 4.1 mmol/L (3.5-5.1); Sodium 139 mmol/L (137-145); Total Bilirubin 0.6 mg/dL (0.2-1.3); Total Protein 6.7 g/dL (6.3-8.2)
[2023-04-03] MEDS ORDERED: HYDROmorphone 0.5 MG/0.5 ML SYRINGE IM STA (02:53)
[2023-04-03 03:04] VITALS: BP 127/78; PULSE 82; RESP 18
== END 2023-04-03 03:02 | disposition other institution (70) ==
LOC: EC 23:10
DX: T25.222A Burn of second degree of left foot, initial encounter (principal); J44.9 Chronic obstructive pulmonary disease, unspecified; E11.9 Type 2 diabetes mellitus without complications; E78.5 Hyperlipidemia, unspecified; I10 Essential (primary) hypertension; M19.90 Unspecified osteoarthritis, unspecified site; G47.30 Sleep apnea, unspecified; E07.9 Disorder of thyroid, unspecified; K21.9 Gastro-esophageal reflux disease without esophagitis; F90.9 Attention-deficit hyperactivity disorder, unspecified type; F31.9 Bipolar disorder, unspecified; F17.200 Nicotine dependence, unspecified, uncomplicated; F12.90 Cannabis use, unspecified, uncomplicated; Z79.890 Hormone replacement therapy; Z79.1 Long term (current) use of non-steroidal anti-inflammatories (NSAID); Z79.84 Long term (current) use of oral hypoglycemic drugs; Z79.899 Other long term (current) drug therapy; Z79.51 Long term (current) use of inhaled steroids; Z86.16 Personal history of COVID-19; Z88.6 Allergy status to analgesic agent; Z88.8 Allergy status to other drugs, medicaments and biological substances; Z90.49 Acquired absence of other specified parts of digestive tract
CPT/HCPCS: 36415; 80053; 83605; 85025; 99284; 96372; J1170; 90715

== ENCOUNTER 2023-04-05 22:03 | Inpatient (IN) | payer MEDICARE, OTHER ==
[2023-04-05] MEDS ORDERED: MORPHINE SULFATE 4 MG/ML SYRINGE IV STA (22:44)
[2023-04-05] MEDS ORDERED: NALOXONE 0.4 MG/ML 1 ML VIAL IV PRN (22:44)
[2023-04-05] MEDS ORDERED: ONDANSETRON 4 MG/2 ML VIAL IVP PRN (22:44)
[2023-04-05] MEDS ORDERED: SODIUM CHLORIDE 0.9% 1,000 ML IV STA (22:44)
[2023-04-05] MEDS ORDERED: VANCOMYCIN IV PER PHARMACY 1 EACH MISC MISCELLANE PRN (22:44)
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
[2023-04-05 23:16] LABS: Basophils # (A) 0.1 k/uL (0-0.2); Basophils % (A) 1 %; Eosinophils # (A) 0.1 k/uL (0-0.7); Eosinophils % (A) 1 %; HCT 42.1 % (39.0-53.0); HGB 14.6 gm/dL (13.0-17.5); Lymphocytes # (A) 2.7 k/uL (1.0-4.8); Lymphocytes % (A) 26 %; MCH 31.1 pg (25.0-35.0); MCHC 34.8 g/dL (31.0-37.0); MCV 89.6 fL (80.0-100.0); Mean Platelet Volume 7.2; Monocytes # (A) 0.6 k/uL (0-1.0); Monocytes % (A) 6 %; Neutrophils # (A) 6.6 k/uL (1.3-7.7); Neutrophils % (A) 65 %; Platelet Count 288 k/uL (150-450); RDW 12.9 % (11.5-15.5); WBC 10.2 k/uL (3.8-10.6)
[2023-04-05 23:34] LABS: INR 1.1 (<1.2); Partial Thromboplastin Time 24.5 sec (22.0-30.0)
[2023-04-05 23:48] LABS: ALT 27 U/L (4-49); AST 23 U/L (17-59); African American GFR (CKD) 70 (>60 ml/min/1.73 sqM); Albumin 3.8 g/dL (3.5-5.0); Alkaline Phosphatase 218 U/L (38-126); Anion Gap 14 mmol/L; Blood Urea Nitrogen 15 mg/dL (9-20); Calcium 9.1 mg/dL (8.4-10.2); Carbon Dioxide 21 mmol/L (22-30); Chloride 105 mmol/L (98-107); Glucose 198 mg/dL (74-99); Magnesium 1.3 mg/dL (1.6-2.3); Non-African American GFR(CKD) 60 (>60 ml/min/1.73 sqM); Phosphorus 2.8 mg/dL (2.5-4.5); Potassium 3.3 mmol/L (3.5-5.1); Sodium 140 mmol/L (137-145); Total Bilirubin 0.6 mg/dL (0.2-1.3); Total Protein 6.7 g/dL (6.3-8.2)
[2023-04-06] MEDS ORDERED: VANCOMYCIN 1,750 MG in SODIUM CHLORIDE 0.9% 500 ML 500 ML IVPB SCH (00:30)
--- NOTE | 2023-04-06 01:13 | XR ---
EXAM: XR Bilateral Feet Complete, 3 or More Views CLINICAL HISTORY: ITS.REASON XR Reason: osteo TECHNIQUE: Frontal, lateral and oblique views of the bilateral feet. COMPARISON: No relevant prior studies available. FINDINGS: Bones/joints: If there is concern for osteomyelitis, MRI recommended. Osseous demineralization. RIGHT tibial nail. Small LEFT heel spur. No fracture or dislocation. No Lisfranc malalignment. Soft tissues: Unremarkable. No radiopaque foreign body. Other findings: Bilateral bipartite medial sesamoids. IMPRESSION: 1. No fracture or dislocation. 2. If there is concern for osteomyelitis, MRI recommended.
[2023-04-06] MEDS ORDERED: ALBUTEROL NEBULIZED 2.5 MG/3 ML INHALATION PRN (02:32)
[2023-04-06] MEDS ORDERED: oxyCODONE-APAP 10-325MG 1 EACH TAB PO PRN (02:32)
[2023-04-06] MEDS ORDERED: DEXTROSE 50% SYRINGE 50 ML IVP PRN ×2 (02:38)
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
[2023-04-06] MEDS: MAGNESIUM SULFATE-D5W PMX 1 GM in DEXTROSE/WATER 1 100ML.BAG IVPB SCH ×2 (04:29→05:41)
[2023-04-06 04:37] LABS: Glucose,Whole Blood 253 mg/dL (70-110)
[2023-04-06] MEDS: MORPHINE SULFATE 4 MG/ML SYRINGE IV PRN ×4 (04:40→21:49)
[2023-04-06] MEDS: LEVOTHYROXINE 75 MCG TAB PO SCH (05:46)
[2023-04-06 07:29] LABS: Basophils % (A) 0 %; Eosinophils # (A) 0.1 k/uL (0-0.7); Eosinophils % (A) 2 %; HCT 39.6 % (39.0-53.0); HGB 13.5 gm/dL (13.0-17.5); Lymphocytes % (A) 36 %; MCH 31.1 pg (25.0-35.0); MCHC 34.2 g/dL (31.0-37.0); Mean Platelet Volume 7.5; Monocytes # (A) 0.6 k/uL (0-1.0); Monocytes % (A) 7 %; Neutrophils # (A) 4.5 k/uL (1.3-7.7); Neutrophils % (A) 53 %; Platelet Count 246 k/uL (150-450); RBC 4.35 m/uL (4.30-5.90); RDW 13.1 % (11.5-15.5); WBC 8.4 k/uL (3.8-10.6)
[2023-04-06 07:57] LABS: ALT 21 U/L (4-49); AST 18 U/L (17-59); African American GFR (CKD) 83 (>60 ml/min/1.73 sqM); Alkaline Phosphatase 177 U/L (38-126); Anion Gap 8 mmol/L; Blood Urea Nitrogen 19 mg/dL (9-20); Carbon Dioxide 23 mmol/L (22-30); Chloride 108 mmol/L (98-107); Glucose 137 mg/dL (74-99); Magnesium 1.9 mg/dL (1.6-2.3); Non-African American GFR(CKD) 72 (>60 ml/min/1.73 sqM); Phosphorus 3.7 mg/dL (2.5-4.5); Potassium 3.3 mmol/L (3.5-5.1); Sodium 139 mmol/L (137-145); Total Bilirubin 0.4 mg/dL (0.2-1.3); Total Protein 5.5 g/dL (6.3-8.2)
[2023-04-06 08:12] LABS: Glucose,Whole Blood 123 mg/dL (70-110)
[2023-04-06] MEDS: INSULIN ASPART (NovoLOG) 100 UNIT/ML VIAL SQ SCH ×4 (08:14→21:09)
[2023-04-06] MEDS: SYMBICORT 160-4.5 MCG INHALER INHALATION SCH ×2 (08:56→18:43)
[2023-04-06] MEDS ORDERED: PREGABALIN 100 MG CAP PO SCH (09:00)
[2023-04-06] MEDS ORDERED: POTASSIUM CHLORIDE ER 20 MEQ TAB.ER PO STA (09:33)
[2023-04-06] MEDS: OXcarbazepine 300 MG TAB PO SCH ×2 (10:45→20:53)
[2023-04-06] MEDS: HEPARIN SODIUM,PORCINE 5,000 UNIT/ML 1 ML VIAL SQ SCH ×2 (10:46→18:12)
[2023-04-06] MEDS: FAMOTIDINE 20 MG TAB PO SCH (10:47)
[2023-04-06] MEDS ORDERED: VANCOMYCIN 2,000 MG in SODIUM CHLORIDE 0.9% 500 ML 500 ML IVPB SCH (11:00)
[2023-04-06 11:51] LABS: Glucose,Whole Blood 120 mg/dL (70-110)
--- NOTE | 2023-04-06 12:05 | P.PN ---
Subjective Progress Note Date: 04/06/23 57-year-old male with PMH of COPD, diabetes mellitus, peripheral neuropathy, hypertension, dyslipidemia, GERD, hypothyroidism presents the ED for left foot wound that has been progressively getting worse over the past week. He also noticed one black spot at the tip of his left 4th toe. In the ED, he underwent extensive evaluation. He was tachycardic with heart rate in the 100s. Vital signs were otherwise stable. CBC was unremarkable. CMP showed potassium 3.3, bicarb 21, Cr 1.32, glucose 198, alkaline phosphatase 218. Magnesium was 1.3. Lactic acid is 1.2. Foot x-ray showed no acute pathology. EKG showed sinus tachycardia in incomplete RBBB. Patient started on vancomycin and admitted for vascular surgery and ID consultation. 04/06 Patient was seen and examined. No acute events overnight. He is quite anxious about losing his foot. CBC is unremarkable. CMP shows potassium of 3.3, chloride 108, glucose 137, calcium of 8, alkaline phosphatase 177 and albumin of 3. General: non toxic, no distress, appears at stated age Derm: warm, dry Head: atraumatic, normocephalic, symmetric Eyes: EOMI, no lid lag, anicteric sclera Mouth: no lip lesion, mucus membranes moist Cardiovascular: S1S2 reg, no murmur Lungs: CTA bilateral, no rhonchi, no rales , no accessory muscle use Ext: no gross muscle atrophy, no edema, no contractures, L foot dressing with serosanguineous drainage Neuro: no focal neuro deficits Psych: Alert, oriented, anxious Left diabetic foot ulcer Hypokalemia Resolved: EVA, hypoMag Chronic conditions: COPD, diabetes mellitus, peripheral neuropathy, hypertension, dyslipidemia, GERD, hypothyroidism Based on my assessment of this patient, this patient meets a high complexity level of care. Patient has an acute diagnosis of L diabetic food ulcer that poses a threat to life or bodily function. He is started on Vancomycin and Vascular surgery and ID is consulted. Left diabetic foot ulcer: Continue Vancomycin dosed by pharmacy. Monitor renal function as vancomycin is nephrotoxic. Follow blood culture. Vascular surgery consulted. Infectious disease consulted. Hypokalemia: KCl 40 mEq by mouth today. Heparin SQ for DVT prophylaxis. FULL CODE. I have reviewed the following senior financial consultant notes: I have reviewed the results of the following tests: CBC. CMP. I have ordered the following tests: BMP. Vanco trough. I have discussed the care of this patient with the following independent historian: I have independently interpreted the following test below: I have discussed the management of this patient with the following physician: Objective - Vital Signs Vital signs: Vital Signs Temp 98.0 F 04/06/23 08:00 Pulse 71 04/06/23 08:00 Resp 16 04/06/23 08:00 BP 121/74 04/06/23 08:00 Pulse Ox 99 04/06/23 08:00 FiO2 Intake & Output 04/05/23 04/06/23 04/06/23 18:59 06:59 18:59 Intake Total 118 Balance 118 Weight 97.522 kg Intake: Oral 118 - Labs CBC & Chem 7: 04/06/23 06:44 04/06/23 06:44 Labs: Abnormal Lab Results - Last 24 Hours (Table) 04/05/23 04/06/23 04/06/23 Range/Units 22:50 04:34 06:44 Potassium 3.3 L 3.3 L (3.5-5.1) mmol/L Chloride 108 H (98-107) mmol/L Carbon Dioxide 21 L (22-30) mmol/L Creatinine 1.32 H (0.66-1.25) mg/dL Glucose 198 H 137 H (74-99) mg/dL POC Glucose (mg/dL) 253 H (70-110) mg/dL Calcium 8.0 L (8.4-10.2) mg/dL Magnesium 1.3 L (1.6-2.3) mg/dL Alkaline Phosphatase 218 H 177 H (38-126) U/L Total Protein 5.5 L (6.3-8.2) g/dL Albumin 3.0 L (3.5-5.0) g/dL 04/06/23 04/06/23 Range/Units 08:11 11:49 Potassium (3.5-5.1) mmol/L Chloride (98-107) mmol/L Carbon Dioxide (22-30) mmol/L Creatinine (0.66-1.25) mg/dL Glucose (74-99) mg/dL POC Glucose (mg/dL) 123 H 120 H (70-110) mg/dL Calcium (8.4-10.2) mg/dL Magnesium (1.6-2.3) mg/dL Alkaline Phosphatase (38-126) U/L Total Protein (6.3-8.2) g/dL Albumin (3.5-5.0) g/dL
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
[2023-04-06] MEDS: VANCOMYCIN 1,750 MG in SODIUM CHLORIDE 0.9% 500 ML 500 ML IVPB SCH (12:21)
[2023-04-06] MEDS ORDERED: VANCOMYCIN 1,500 MG in SODIUM CHLORIDE 0.9% 500 ML 500 ML IVPB SCH (13:00)
[2023-04-06] MEDS ORDERED: LOSARTAN 25 MG TAB PO SCH (15:00)
[2023-04-06] MEDS: ATORVASTATIN 20 MG TAB PO SCH (16:23)
[2023-04-06 17:13] LABS: Glucose,Whole Blood 214 mg/dL (70-110)
[2023-04-06] MEDS: AMPICILLIN-SULBACTAM 3 GM in SODIUM CHLORIDE 0.9% 100 ML IVPB SCH ×2 (18:12→23:32)
[2023-04-06] MEDS: rOPINIRole HCL 4 MG TABLET PO SCH (20:54)
[2023-04-06] MEDS: PANTOPRAZOLE 40 MG TABLET PO SCH (20:55)
[2023-04-06 20:56] LABS: Glucose,Whole Blood 187 mg/dL (70-110)
[2023-04-06] MEDS ORDERED: QUEtiapine 400 MG TAB PO SCH (21:00)
[2023-04-06] MEDS ORDERED: LORazepam 1 MG TAB PO SCH (21:00)
[2023-04-06] MEDS: PREGABALIN 100 MG CAP PO SCH (21:08)
[2023-04-07] MEDS: HEPARIN SODIUM,PORCINE 5,000 UNIT/ML 1 ML VIAL SQ SCH ×4 (00:34→23:39)
[2023-04-07] MEDS: VANCOMYCIN 1,750 MG in SODIUM CHLORIDE 0.9% 500 ML 500 ML IVPB SCH ×2 (00:51→12:06)
[2023-04-07] MEDS: LEVOTHYROXINE 75 MCG TAB PO SCH (06:54)
[2023-04-07] MEDS: INSULIN ASPART (NovoLOG) 100 UNIT/ML VIAL SQ SCH ×4 (06:54→21:21)
[2023-04-07 06:55] LABS: Glucose,Whole Blood 136 mg/dL (70-110)
[2023-04-07] MEDS: AMPICILLIN-SULBACTAM 3 GM in SODIUM CHLORIDE 0.9% 100 ML IVPB SCH ×4 (08:20→23:32)
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
[2023-04-07] MEDS: SYMBICORT 160-4.5 MCG INHALER INHALATION SCH ×2 (08:51→20:55)
[2023-04-07] MEDS: OXcarbazepine 300 MG TAB PO SCH ×2 (09:10→21:21)
[2023-04-07] MEDS: PREGABALIN 100 MG CAP PO SCH ×2 (09:10→19:51)
[2023-04-07] MEDS: FAMOTIDINE 20 MG TAB PO SCH (09:10)
[2023-04-07 10:57] LABS: African American GFR (CKD) >90 (>60 ml/min/1.73 sqM); Anion Gap 9 mmol/L; Blood Urea Nitrogen 13 mg/dL (9-20); Calcium 8.6 mg/dL (8.4-10.2); Carbon Dioxide 23 mmol/L (22-30); Chloride 108 mmol/L (98-107); Glucose 212 mg/dL (74-99); Non-African American GFR(CKD) 82 (>60 ml/min/1.73 sqM); Potassium 3.9 mmol/L (3.5-5.1); Sodium 140 mmol/L (137-145)
[2023-04-07] MEDS: MORPHINE SULFATE 4 MG/ML SYRINGE IV PRN ×3 (11:02→23:31)
[2023-04-07] MEDS: LORazepam 1 MG TAB PO SCH ×3 (12:04→23:32)
[2023-04-07 12:21] LABS: Glucose,Whole Blood 227 mg/dL (70-110)
[2023-04-07] MEDS: ATORVASTATIN 20 MG TAB PO SCH (12:53)
--- NOTE | 2023-04-07 14:26 | P.PN ---
Subjective Progress Note Date: 04/07/23 57-year-old male with PMH of COPD, diabetes mellitus, peripheral neuropathy, hypertension, dyslipidemia, GERD, hypothyroidism presents the ED for left foot wound that has been progressively getting worse over the past week. He also noticed one black spot at the tip of his left 4th toe. In the ED, he underwent extensive evaluation. He was tachycardic with heart rate in the 100s. Vital signs were otherwise stable. CBC was unremarkable. CMP showed potassium 3.3, bicarb 21, Cr 1.32, glucose 198, alkaline phosphatase 218. Magnesium was 1.3. Lactic acid is 1.2. Foot x-ray showed no acute pathology. EKG showed sinus tachycardia in incomplete RBBB. Patient started on vancomycin and admitted for vascular surgery and ID consultation. 04/06 Patient was seen and examined. No acute events overnight. He is quite anxious about losing his foot. CBC is unremarkable. CMP shows potassium of 3.3, chloride 108, glucose 137, calcium of 8, alkaline phosphatase 177 and albumin of 3. 04/07 Patient was seen and examined. Patient upset about Ativan dosing, gets 2 mg PO TID with his PCP. Vascular surgery recommends continued wound care. ID recommends continuing Vanomycin and Unasyn while awaiting for cultures to finalize. Attempted to call Dr. Perez regarding possible debridement of wound, currently in a procedure. BMP shows Cl 108, glucose 212. General: non toxic, no distress, appears at stated age Derm: warm, dry Head: atraumatic, normocephalic, symmetric Eyes: EOMI, no lid lag, anicteric sclera Mouth: no lip lesion, mucus membranes moist Cardiovascular: S1S2 reg, no murmur Lungs: CTA bilateral, no rhonchi, no rales , no accessory muscle use Ext: no gross muscle atrophy, no edema, no contractures, L foot dressing with serosanguineous drainage Neuro: no focal neuro deficits Psych: Alert, oriented, anxious Left diabetic foot ulcer with cellulitis Resolved: EVA, hypoMag, HypoK Chronic conditions: COPD, diabetes mellitus, peripheral neuropathy, hypertension, dyslipidemia, GERD, hypothyroidism Based on my assessment of this patient, this patient meets a high complexity level of care. Patient has an acute diagnosis of L diabetic food ulcer that poses a threat to life or bodily function. He is started on Vancomycin and Vascular surgery and ID is consulted. Left diabetic foot ulcer and cellulitis: Continue Vancomycin dosed by pharmacy and Unasyn 3g IV Q6H. Monitor renal function as vancomycin is nephrotoxic. Follow blood and wound culture. Vascular surgery consulted. Infectious disease consulted. Heparin SQ for DVT prophylaxis. FULL CODE. I have reviewed the following client development consultant notes: I have reviewed the results of the following tests: BMP. I have ordered the following tests: BMP. Vanco trough. I have discussed the care of this patient with the following independent historian: I have independently interpreted the following test below: I have discussed the management of this patient with the following physician: Objective - Vital Signs Vital signs: Vital Signs Temp 97.5 F L 04/07/23 11:06 Pulse 84 04/07/23 08:00 Resp 16 04/07/23 08:00 BP 109/73 04/07/23 08:00 Pulse Ox 98 04/07/23 08:00 FiO2 Intake & Output 04/06/23 04/07/23 04/07/23 18:59 06:59 18:59 Intake Total 118 618 Balance 118 618 Weight 97.522 kg Intake: Oral 118 618 Other: Voiding Method Toilet # Voids 2 2 - Labs CBC & Chem 7: 04/06/23 06:44 04/07/23 10:28 Labs: Abnormal Lab Results - Last 24 Hours (Table) 04/06/23 04/06/23 04/07/23 Range/Units 17:12 20:55 06:54 Chloride (98-107) mmol/L Glucose (74-99) mg/dL POC Glucose (mg/dL) 214 H 187 H 136 H (70-110) mg/dL 04/07/23 04/07/23 Range/Units 10:28 12:19 Chloride 108 H (98-107) mmol/L Glucose 212 H (74-99) mg/dL POC Glucose (mg/dL) 227 H (70-110) mg/dL Microbiology - Last 24 Hours (Table) 04/05/23 22:50 Blood Culture - Preliminary Blood
[2023-04-07 17:10] LABS: Glucose,Whole Blood 282 mg/dL (70-110)
--- NOTE | 2023-04-07 17:14 | P.PN ---
Subjective Progress Note Date: 04/07/23 Principal diagnosis: Left diabetic foot and cellulitis Patient is a 57-year-old male with a past medical history significant for diabetes mellitus hypertension hyperlipidemia osteoarthritis patient apparently trying to wash of his feet with the hot water developing a blister on the dorsum aspect of his left foot did have sloughing of the skin and cellulitis patient presenting to this facility after signing out of [facility]. On today's evaluation that is04/07/2023, the patient remains to be afebrile, the patient is breathing comfortably without need for supplemental oxygen , the patient has been combining of some left-sided chest pain and no significant cough, patient denies nausea/vomiting /diarrhea and denies abdominal pain, patient denies pain to the left foot Patient did have a white count of 8.4 as of yesterday, creatinine is 1.02 Objective - Vital Signs Vital signs: Vital Signs Temp 97.5 F L 04/07/23 11:06 Pulse 84 04/07/23 08:00 Resp 16 04/07/23 08:00 BP 109/73 04/07/23 08:00 Pulse Ox 98 04/07/23 08:00 FiO2 Intake & Output 04/06/23 04/07/23 04/07/23 18:59 06:59 18:59 Intake Total 118 618 Balance 118 618 Weight 97.522 kg Intake: Oral 118 618 Other: Voiding Method Toilet # Voids 2 2 - Exam GENERAL DESCRIPTION: A middle-age male lying in bed in no distress RESPIRATORY SYSTEM: Unlabored breathing , decreased breath sounds at bases HEART: S1 S2 regular rate and rhythm , ABDOMEN: Soft , no tenderness EXTREMITIES: Left foot is currently dressed no drainage on the dressing - Labs CBC & Chem 7: 04/06/23 06:44 04/07/23 10:28 Labs: Abnormal Lab Results - Last 24 Hours (Table) 04/06/23 04/06/23 04/07/23 Range/Units 17:12 20:55 06:54 Chloride (98-107) mmol/L Glucose (74-99) mg/dL POC Glucose (mg/dL) 214 H 187 H 136 H (70-110) mg/dL 04/07/23 04/07/23 Range/Units 10:28 12:19 Chloride 108 H (98-107) mmol/L Glucose 212 H (74-99) mg/dL POC Glucose (mg/dL) 227 H (70-110) mg/dL Microbiology - Last 24 Hours (Table) 04/05/23 22:50 Blood Culture - Preliminary Blood Assessment and Plan (1) Diabetic foot ulcer Current Visit: Yes Status: Acute Code(s): E11.621 - TYPE 2 DIABETES MELLITUS WITH FOOT ULCER; L97.509 - NON-PRESSURE CHRONIC ULCER OTH PRT UNSP FOOT W UNSP SEVERITY SNOMED Code(s): 598373489 (2) Cellulitis of left foot Current Visit: Yes Status: Acute Code(s): L03.116 - CELLULITIS OF LEFT LOWER LIMB SNOMED Code(s): 56145304457433328 Plan: 1patient presented to hospital with a left diabetic foot ulceration as a result of burning from the hot water with mostly skin sloughed off on the dorsum aspect of the left foot did have some maceration of the base of the toes some but no foul smell drainage. 2local care with Aquacel silver dressing to change every 48 hour 3-patient to continue with Unasyn however discontinue vancomycin we will check CRP and WBC with a.m. lab Dictation was produced using [employer] dictation software. please excuse any grammatical, word or spelling errors. Time with Patient: Less than 30
[2023-04-07] MEDS: PANTOPRAZOLE 40 MG TABLET PO SCH (19:51)
[2023-04-07] MEDS: rOPINIRole HCL 4 MG TABLET PO SCH (19:54)
[2023-04-07 20:20] LABS: Glucose,Whole Blood 245 mg/dL (70-110)
--- NOTE | 2023-04-07 20:25 | PN ---
PROGRESS NOTE This is a 57-year-old gentleman who has history of wound to the left foot dorsum aspect and involving all the toes. This happened at home accidentally. The patient has been admitted through the ER. We have changed the dressing today. Wound is clean and we used Aquacel silver on the dorsal aspect of the foot and involving the toes. Dressing was applied. The patient is on IV antibiotics under care of Infectious Disease. Next dressing should be changed on if the patient goes home. Follow up with me in the wound clinic at [facility] on Thursday, will follow with you. MMODL / IJN: [id number] /
[2023-04-07] MEDS: QUEtiapine 400 MG TAB PO SCH (23:32)
[2023-04-07] MEDS ORDERED: QUEtiapine 400 MG TAB PO STA (23:45)
[2023-04-08] MEDS: AMPICILLIN-SULBACTAM 3 GM in SODIUM CHLORIDE 0.9% 100 ML IVPB SCH ×4 (05:38→23:01)
[2023-04-08] MEDS: LEVOTHYROXINE 75 MCG TAB PO SCH (05:38)
[2023-04-08 05:57] LABS: Glucose,Whole Blood 339 mg/dL (70-110)
[2023-04-08] MEDS: INSULIN ASPART (NovoLOG) 100 UNIT/ML VIAL SQ SCH ×4 (06:00→22:23)
[2023-04-08] MEDS: HEPARIN SODIUM,PORCINE 5,000 UNIT/ML 1 ML VIAL SQ SCH ×3 (08:30→22:27)
[2023-04-08] MEDS: FAMOTIDINE 20 MG TAB PO SCH (08:31)
[2023-04-08] MEDS: OXcarbazepine 300 MG TAB PO SCH ×2 (08:32→22:25)
[2023-04-08] MEDS: QUEtiapine 400 MG TAB PO SCH ×3 (08:32→23:01)
[2023-04-08] MEDS: MORPHINE SULFATE 4 MG/ML SYRINGE IV PRN ×3 (08:40→17:37)
[2023-04-08] MEDS: PREGABALIN 100 MG CAP PO SCH ×2 (08:41→22:24)
[2023-04-08] MEDS: LORazepam 1 MG TAB PO SCH ×3 (08:41→23:01)
[2023-04-08 08:51] LABS: Basophils # (A) 0.03 X 10*3/uL (0.00-0.10); Basophils % (A) 0.5 %; Eosinophils % (A) 1.6 %; HCT 33.9 % (39.6-50.0); HGB 11.4 d/dL (13.0-17.0); Lymphocytes # (A) 2.21 X 10*3/uL (0.90-5.00); Lymphocytes % (A) 36.3 %; MCH 30.6 pg (27.0-32.0); MCHC 33.6 d/dL (32.0-37.0); MCV 91.1 FL (80.0-97.0); Mean Platelet Volume 9.4 FL (9.5-12.2); Monocytes % (A) 8.2 %; NRBC Per 100 WBC 0 X 10*3/uL (0.00-0.01); Neutrophils # (A) 3.21 X 10*3/uL (1.80-7.70); Neutrophils % (A) 52.9 %; Platelet Count 205 X 10*3/uL (140-440); RBC 3.72 X 10*6/uL (4.40-5.60); RDW 13.3 % (11.5-14.5); WBC 6.08 X 10*3/uL (4.50-10.00)
[2023-04-08 09:01] LABS: BUN/Creat Ratio 9.36 Ratio (12.00-20.00); Blood Urea Nitrogen 10.3 mg/dL (9.0-27.0); Carbon Dioxide 22.6 mmol/L (21.6-31.8); Chloride 108 mmol/L (96-109); Glucose 338 mg/dL (70-110); Potassium 3.8 mmol/L (3.5-5.5); Sodium 142 mmol/L (135-145)
[2023-04-08] MEDS: SYMBICORT 160-4.5 MCG INHALER INHALATION SCH ×2 (09:02→20:39)
[2023-04-08] MEDS ORDERED: VANCOMYCIN TROUGH DUE 1 EACH MISC MISCELLANE ONE (10:00)
--- NOTE | 2023-04-08 12:30 | P.PN ---
Subjective Progress Note Date: 04/08/23 Principal diagnosis: Left diabetic foot and cellulitis Patient is a 57-year-old male with a past medical history significant for diabetes mellitus hypertension hyperlipidemia osteoarthritis patient apparently trying to wash of his feet with the hot water developing a blister on the dorsum aspect of his left foot did have sloughing of the skin and cellulitis patient presenting to this facility after signing out of [facility]. On today's evaluation that is 04/08/2023, the patient continues to be afebrile, the patient is breathing comfortably on room air, the patient denies chest pain and no cough, patient denies abdominal pain, no nausea/vomiting /diarrhea , patient denies pain to the left foot, overall swelling redness slightly decreased Patient did have a white count of 6.08, creatinine is 1.1 Objective - Vital Signs Vital signs: Vital Signs Temp 97.8 F 04/08/23 07:00 Pulse 99 04/08/23 07:00 Resp 16 04/08/23 07:00 BP 116/70 04/08/23 07:00 Pulse Ox 95 04/08/23 07:00 FiO2 Intake & Output 04/07/23 04/08/23 04/08/23 18:59 06:59 18:59 Intake Total 618 Balance 618 Intake: Oral 618 Other: Voiding Method Toilet # Voids 4 4 - Exam GENERAL DESCRIPTION: A middle-age male lying in bed in no distress RESPIRATORY SYSTEM: Unlabored breathing , decreased breath sounds at bases HEART: S1 S2 regular rate and rhythm , ABDOMEN: Soft , no tenderness EXTREMITIES: Left foot swelling redness decreased no foul-smelling drainage - Labs CBC & Chem 7: 04/08/23 05:45 04/08/23 05:45 Labs: Abnormal Lab Results - Last 24 Hours (Table) 04/07/23 04/07/23 04/07/23 Range/Units 10:28 10:28 12:19 RBC (4.40-5.60) X 10*6/uL Hgb (13.0-17.0) d/dL Hct (39.6-50.0) % MPV (9.5-12.2) FL Chloride 108 H (98-107) mmol/L BUN/Creatinine Ratio (12.00-20.00) Ratio Glucose 212 H (74-99) mg/dL POC Glucose (mg/dL) 227 H (70-110) mg/dL Hemoglobin A1c 9.1 H (<=6.0) % Calcium (8.7-10.3) mg/dL C-Reactive Protein (0.00-0.80) mg/dL 04/07/23 04/07/23 04/08/23 Range/Units 17:08 20:19 05:45 RBC 3.72 L (4.40-5.60) X 10*6/uL Hgb 11.4 L (13.0-17.0) d/dL Hct 33.9 L (39.6-50.0) % MPV 9.4 L (9.5-12.2) FL Chloride (98-107) mmol/L BUN/Creatinine Ratio (12.00-20.00) Ratio Glucose (74-99) mg/dL POC Glucose (mg/dL) 282 H 245 H (70-110) mg/dL Hemoglobin A1c (<=6.0) % Calcium (8.7-10.3) mg/dL C-Reactive Protein (0.00-0.80) mg/dL 04/08/23 04/08/23 Range/Units 05:45 05:55 RBC (4.40-5.60) X 10*6/uL Hgb (13.0-17.0) d/dL Hct (39.6-50.0) % MPV (9.5-12.2) FL Chloride (98-107) mmol/L BUN/Creatinine Ratio 9.36 L (12.00-20.00) Ratio Glucose 338 H (74-99) mg/dL POC Glucose (mg/dL) 339 H (70-110) mg/dL Hemoglobin A1c (<=6.0) % Calcium 8.0 L (8.7-10.3) mg/dL C-Reactive Protein 5.90 H (0.00-0.80) mg/dL Microbiology - Last 24 Hours (Table) 04/05/23 22:50 Blood Culture - Preliminary Blood Assessment and Plan (1) Diabetic foot ulcer Current Visit: Yes Status: Acute Code(s): E11.621 - TYPE 2 DIABETES MELLITUS WITH FOOT ULCER; L97.509 - NON-PRESSURE CHRONIC ULCER OTH PRT UNSP FOOT W UNSP SEVERITY SNOMED Code(s): 078240569 (2) Cellulitis of left foot Current Visit: Yes Status: Acute Code(s): L03.116 - CELLULITIS OF LEFT LOWER LIMB SNOMED Code(s): 86917865297617598 Plan: 1patient presented to hospital with a left diabetic foot ulceration as a result of burning from the hot water with mostly skin sloughed off on the dorsum aspect of the left foot did have some maceration of the base of the toes some but no foul smell drainage. 2local care with Aquacel silver dressing to change every 48 hour 3-patient to continue with Unasyn for another 24 hour before transitioning to oral Augmentin and a close outpatient follow-up Dictation was produced using [employer] dictation software. please excuse any grammatical, word or spelling errors. Time with Patient: Less than 30
[2023-04-08 12:56] LABS: Glucose,Whole Blood 340 mg/dL (70-110)
[2023-04-08 13:21] VITALS: BMI 26.9
[2023-04-08] MEDS: ATORVASTATIN 20 MG TAB PO SCH (13:39)
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
[2023-04-08 17:26] LABS: Glucose,Whole Blood 279 mg/dL (70-110)
[2023-04-08 20:46] LABS: Glucose,Whole Blood 229 mg/dL (70-110)
[2023-04-08] MEDS ORDERED: INSULIN DETEMIR (LEVEMIR) 100 UNIT/ML SYR SQ SCH (21:00)
[2023-04-08] MEDS: PANTOPRAZOLE 40 MG TABLET PO SCH (22:24)
[2023-04-08] MEDS: rOPINIRole HCL 4 MG TABLET PO SCH (22:24)
[2023-04-09] MEDS: MORPHINE SULFATE 4 MG/ML SYRINGE IV PRN ×3 (01:31→10:52)
[2023-04-09 03:21] LABS: Glucose,Whole Blood 274 mg/dL (70-110)
[2023-04-09 03:25] VITALS: RESP 16
[2023-04-09] MEDS: LEVOTHYROXINE 75 MCG TAB PO SCH (06:05)
[2023-04-09] MEDS: AMPICILLIN-SULBACTAM 3 GM in SODIUM CHLORIDE 0.9% 100 ML IVPB SCH ×3 (06:05→14:36)
[2023-04-09 06:14] LABS: Glucose,Whole Blood 304 mg/dL (70-110)
[2023-04-09 06:16] LABS: HCT 38.5 % (39.0-53.0); MCH 31.1 pg (25.0-35.0); MCHC 33.8 g/dL (31.0-37.0); MCV 92.1 fL (80.0-100.0); Mean Platelet Volume 7.5; Platelet Count 216 k/uL (150-450); RBC 4.18 m/uL (4.30-5.90); WBC 7.4 k/uL (3.8-10.6)
[2023-04-09 06:27] LABS: African American GFR (CKD) >90 (>60 ml/min/1.73 sqM); Anion Gap 9 mmol/L; Blood Urea Nitrogen 9 mg/dL (9-20); Calcium 8.6 mg/dL (8.4-10.2); Carbon Dioxide 25 mmol/L (22-30); Chloride 104 mmol/L (98-107); Glucose 274 mg/dL (74-99); Non-African American GFR(CKD) 78 (>60 ml/min/1.73 sqM); Sodium 138 mmol/L (137-145)
[2023-04-09] MEDS: INSULIN ASPART (NovoLOG) 100 UNIT/ML VIAL SQ SCH ×2 (06:38→13:13)
[2023-04-09] MEDS: LORazepam 1 MG TAB PO SCH (08:17)
[2023-04-09] MEDS: OXcarbazepine 300 MG TAB PO SCH (08:18)
[2023-04-09] MEDS: HEPARIN SODIUM,PORCINE 5,000 UNIT/ML 1 ML VIAL SQ SCH (08:19)
[2023-04-09] MEDS: PREGABALIN 100 MG CAP PO SCH (08:19)
[2023-04-09] MEDS: QUEtiapine 400 MG TAB PO SCH ×2 (08:19→08:27)
[2023-04-09] MEDS: FAMOTIDINE 20 MG TAB PO SCH (08:19)
[2023-04-09 08:29] VITALS: BP 93/54; PULSE 100; TEMP 97.5
[2023-04-09] MEDS: SYMBICORT 160-4.5 MCG INHALER INHALATION SCH (08:37)
--- NOTE | 2023-04-09 12:39 | XR ---
EXAMINATION TYPE: XR chest 1V portable DATE OF EXAM: 04/08/2023 COMPARISON: 01/21/2021 HISTORY: Pain TECHNIQUE: Single frontal view of the chest is obtained. FINDINGS: Diffuse emphysematous changes with chronic right-sided rib deformities. No sizable thorax. Curvature of the spine. Heart size normal. No overt failure. Diffuse osteopenia. IMPRESSION: COPD
[2023-04-09 13:03] LABS: Glucose,Whole Blood 351 mg/dL (70-110)
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
[2023-04-09] MEDS ORDERED: AMOXIC-POT CLAV 875-125MG 1 EACH TAB PO SCH (14:45)
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
[2023-04-09] MEDS: ATORVASTATIN 20 MG TAB PO SCH (15:14)
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
== END 2023-04-09 15:20 | disposition home health service (06) | DRG 935 ==
LOC: EC 22:03 → 6NMEDSUR 22:47 → OBSVTOIN 04-08 07:04
PROVIDERS: ADMIT Internal Medicine; ATTEND Internal Medicine
DX: T25.221A Burn of second degree of right foot, initial encounter (principal); E11.52 Type 2 diabetes mellitus with diabetic peripheral angiopathy with gangrene; L03.116 Cellulitis of left lower limb; N17.9 Acute kidney failure, unspecified; E11.621 Type 2 diabetes mellitus with foot ulcer; T31.0 Burns involving less than 10% of body surface; L03.032 Cellulitis of left toe; E11.65 Type 2 diabetes mellitus with hyperglycemia; E11.42 Type 2 diabetes mellitus with diabetic polyneuropathy; I10 Essential (primary) hypertension; G25.81 Restless legs syndrome; E11.628 Type 2 diabetes mellitus with other skin complications; E03.9 Hypothyroidism, unspecified; J44.9 Chronic obstructive pulmonary disease, unspecified; L97.529 Non-pressure chronic ulcer of other part of left foot with unspecified severity; L97.519 Non-pressure chronic ulcer of other part of right foot with unspecified severity; T25.132A Burn of first degree of left toe(s) (nail), initial encounter; G89.29 Other chronic pain; M79.673 Pain in unspecified foot; K21.9 Gastro-esophageal reflux disease without esophagitis; E78.5 Hyperlipidemia, unspecified; R41.3 Other amnesia; F17.210 Nicotine dependence, cigarettes, uncomplicated; M19.90 Unspecified osteoarthritis, unspecified site; T25.222A Burn of second degree of left foot, initial encounter; E83.42 Hypomagnesemia; E87.6 Hypokalemia; I45.10 Unspecified right bundle-branch block; G47.30 Sleep apnea, unspecified; X08.8XXA Exposure to other specified smoke, fire and flames, initial encounter; S20.212A Contusion of left front wall of thorax, initial encounter; X11.0XXA Contact with hot water in bath or tub, initial encounter; V94.9XXA Unspecified water transport accident, initial encounter; Z79.4 Long term (current) use of insulin; Z79.899 Other long term (current) drug therapy; Z79.890 Hormone replacement therapy; Z79.85 Long-term (current) use of injectable non-insulin antidiabetic drugs; Z79.51 Long term (current) use of inhaled steroids; Z88.8 Allergy status to other drugs, medicaments and biological substances; Z87.19 Personal history of other diseases of the digestive system; Z79.84 Long term (current) use of oral hypoglycemic drugs; Z87.820 Personal history of traumatic brain injury; Z86.16 Personal history of COVID-19; Z86.14 Personal history of Methicillin resistant Staphylococcus aureus infection; Z98.1 Arthrodesis status
CPT/HCPCS: 36410; 71045; 76937; 80048; 80053; 83036; 83605; 83735; 84100; 84484; 85025; 85027; 85610; 85730; 86140; 87040; 93005; 96361; 96365; 96366; 96367; 96368; 96375; 96376; 99285

== ENCOUNTER → 2023-06-15 | Outpatient (CLI) | payer MEDICARE, OTHER | END | disposition home or self-care (01) | LOC: LABWHC1 16:10 | PROVIDERS: ATTEND Family Medicine | DX: E11.9 Type 2 diabetes mellitus without complications (principal) | CPT/HCPCS: 36415; 83036 ==

== ENCOUNTER 2023-08-03 15:37 | Inpatient (IN) | payer MEDICARE, OTHER ==
[2023-08-03 15:59] LABS: Glucose,Whole Blood 523 mg/dL (70-110)
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
[2023-08-03] MEDS: SODIUM CHLORIDE 0.9% 1,000 ML IV ONE (16:23)
[2023-08-03 16:34] LABS: Basophils % (A) 0 %; Eosinophils % (A) 0 %; HCT 36.3 % (39.0-53.0); Lymphocytes # (A) 0.8 k/uL (1.0-4.8); Lymphocytes % (A) 7 %; MCH 29.5 pg (25.0-35.0); MCV 89.7 fL (80.0-100.0); Monocytes # (A) 0.8 k/uL (0-1.0); Monocytes % (A) 6 %; Neutrophils # (A) 10.1 k/uL (1.3-7.7); Neutrophils % (A) 83 %; Platelet Count 237 k/uL (150-450); RBC 4.04 m/uL (4.30-5.90); RDW 13.9 % (11.5-15.5); WBC 12.1 k/uL (3.8-10.6)
[2023-08-03 17:00] LABS: Partial Thromboplastin Time 24.2 sec (22.0-30.0); Prothrombin Time 11.1 sec (10.0-12.5)
[2023-08-03] MEDS ORDERED: VANCOMYCIN IV PER PHARMACY 1 EACH MISC MISCELLANE PRN (17:01)
[2023-08-03 17:18] LABS: ALT 63 U/L (4-49); AST 75 U/L (17-59); African American GFR (CKD) 59 (>60 ml/min/1.73 sqM); Albumin 3.1 g/dL (3.5-5.0); Alkaline Phosphatase 420 U/L (38-126); Anion Gap 13 mmol/L; Blood Urea Nitrogen 23 mg/dL (9-20); Calcium 8.7 mg/dL (8.4-10.2); Carbon Dioxide 23 mmol/L (22-30); Chloride 101 mmol/L (98-107); Creatine Kinase 87 U/L (55-170); Magnesium 1.3 mg/dL (1.6-2.3); Non-African American GFR(CKD) 51 (>60 ml/min/1.73 sqM); Phosphorus 3.7 mg/dL (2.5-4.5); Potassium 4.2 mmol/L (3.5-5.1); Sodium 137 mmol/L (137-145); Total Bilirubin 1.3 mg/dL (0.2-1.3)
--- NOTE | 2023-08-03 17:22 | CT ---
6 EXAMINATION TYPE: CT brain rajat lambert DATE OF EXAM: 08/03/2023 COMPARISON: 09/11/2016 HISTORY: Fall, AMS CT DLP: 1501.[address] of the brain was performed. The ventricles, basal cisterns and sulci overlying the cerebral convexities demonstrate mild enlargem ent. There is no evidence for intracranial hemorrhage or sulcal effacement. There is decreased attenuatio n about the periventricular white matter and deep white matter of both cerebral hemispheres, compatib le with chronic small vessel ischemia. No mass effects are seen. If symptoms persist consider MRI. Osseous calvarium is intact. IMPRESSION: 1. Age related atrophic and chronic small vessel ischemic change without acute intracranial process seen at this time. CT Cervical Spine: Unenhanced CT of the cervical spine was performed with bone and soft tissue window settings submitted . Coronal and sagittal reconstruction is obtained. There is normal alignment and prevertebral soft tissues. No evidence for acute cervical fracture . Scattered degenerative disc disease and spondylosis. Biapical scarring. IMPRESSION: 1. No evidence for acute fracture or subluxation of the cervical spine.
[2023-08-03 17:27] LABS: Glucose 501 mg/dL (74-99)
--- NOTE | 2023-08-03 17:38 | XR ---
EXAMINATION TYPE: XR chest 2V DATE OF EXAM: 08/03/2023 COMPARISON: NONE HISTORY: Shortness of breath TECHNIQUE: Frontal and lateral views of the chest are obtained. FINDINGS: Scattered senescent parenchymal changes noted. Hyperinflation compatible with COPD. No evidence for infiltrate. No evidence for atelectasis. Heart size is stable. Mediastinal structures are stable and grossly unremarkable. No evidence for hilar prominence. Degenerative changes dorsal spine. IMPRESSION: 1. No evidence for acute pulmonary disease.
--- NOTE | 2023-08-03 17:40 | XR ---
EXAMINATION TYPE: XR foot complete LT DATE OF EXAM: 08/03/2023 CLINICAL HISTORY: pain TECHNIQUE: Frontal, lateral and oblique images of the left foot are obtained. COMPARISON: 04/05/2023 FINDINGS: There is soft tissue ulceration at the base of the fifth metatarsal with bony destructive p rocess and callus formation. There is soft tissue air seen anterior producing infection is not exclud ed. There is ulceration at the head of the fifth metatarsal with bony destructive change seen of the metatarsal head and metatarsal neck. There is also destructive change at the base of the proximal pha lanx left fifth digit. No additional areas of destruction seen. IMPRESSION: Findings compatible with multifocal osteomyelitis of the fifth digit. Soft tissue air may reflect sof t tissue air producing infection.
[2023-08-03] MEDS: SODIUM CHLORIDE 0.9% 500 ML 500 ML IV SCH (17:45)
[2023-08-03] MEDS: VANCOMYCIN 1,750 MG in SODIUM CHLORIDE 0.9% 500 ML 500 ML IVPB STA (18:09)
[2023-08-03] MEDS: SODIUM CHLORIDE 0.9% 1,000 ML IV SCH (18:11)
[2023-08-03 18:39] LABS: Appearance,Urine Clear (Clear); Bilirubin,Urine Negative (Negative); Blood,Urine Trace (Negative); Color,Urine Yellow; Glucose,Urine (UA) 4+ (Negative); Leukocyte Esterase,Urine Negative (Negative); Mucus,Urine Rare /hpf; Nitrite,Urine Negative (Negative); PH, Urine 5.5 (5.0-8.0); Protein,Urine 1+ (Negative); RBC,Urine 2 /hpf (0-5); Urobilinogen,Urine <2.0 mg/dL (<2.0); WBC,Urine 1 /hpf (0-5)
[2023-08-03 18:47] LABS: Ketones,Urine 2+ (Negative)
[2023-08-03 19:03] LABS: Amphetamine Screen,Urine Not Detected (NotDetected); Barbiturate Screen,Urine Not Detected (NotDetected); Benzodiazepines Screen,Urine Detected (NotDetected); Cocaine Screen,Urine Not Detected (NotDetected); Methadone Screen, Urine Not Detected (NotDetected); Opiate Screen,Urine Not Detected (NotDetected); Oxycodone Screen, Urine Not Detected (NotDetected); Phencyclidine Screen,Urine Not Detected (NotDetected); Tricyclic Antidepressant,Urine Detected (NotDetected); Urn Cannabinoid Scrn Detected (NotDetected)
[2023-08-03 19:13] LABS: C Reactive Protein 39.8 mg/dL (<1.0)
[2023-08-03] MEDS ORDERED: NALOXONE 0.4 MG/ML 1 ML VIAL IV PRN (19:20)
[2023-08-03] MEDS ORDERED: ACETAMINOPHEN TAB 325 MG TAB PO PRN (19:20)
[2023-08-03] MEDS: metroNIDAZOLE-NS PMX 500 MG in SALINE 1 100ML.BAG IVPB SCH (20:00)
[2023-08-03] MEDS: INSULIN REGULAR 100 UNIT/ML VIAL (IV) IV ONE (20:06)
[2023-08-03] MEDS: MAGNESIUM OXIDE 400 MG TAB PO STA (20:18)
[2023-08-03 21:34] LABS: Glucose,Whole Blood 420 mg/dL (70-110)
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
[2023-08-03] MEDS: MAGNESIUM SULFATE-D5W PMX 1 GM in DEXTROSE/WATER 1 100ML.BAG IVPB SCH (22:39)
[2023-08-04] MEDS: PIPERACILLIN-TAZOBACTAM 3.375 GM in SODIUM CHLORIDE 0.9% 100 ML IVPB SCH (00:54)
[2023-08-04 02:35] LABS: Glucose,Whole Blood 342 mg/dL (70-110)
[2023-08-04] MEDS: IPRATROPIUM-ALBUTEROL 3 ML NEB INHALATION STA (04:07)
[2023-08-04] MEDS: LORazepam 2 MG/ML INJ IV STA (05:57)
[2023-08-04 06:06] LABS: Glucose,Whole Blood 376 mg/dL (70-110)
[2023-08-04] MEDS: LEVOTHYROXINE 75 MCG TAB PO SCH (06:08)
[2023-08-04] MEDS: INSULIN ASPART (NovoLOG) 100 UNIT/ML VIAL SQ SCH (06:08)
[2023-08-04 08:30] LABS: HCT 31.5 % (39.0-53.0); HGB 10.4 gm/dL (13.0-17.5); MCH 29.1 pg (25.0-35.0); MCHC 32.9 g/dL (31.0-37.0); MCV 88.5 fL (80.0-100.0); Mean Platelet Volume 7.8; Platelet Count 206 k/uL (150-450); RBC 3.56 m/uL (4.30-5.90); WBC 11.1 k/uL (3.8-10.6)
[2023-08-04 08:49] LABS: African American GFR (CKD) >90 (>60 ml/min/1.73 sqM); Anion Gap 7 mmol/L; Blood Urea Nitrogen 21 mg/dL (9-20); Calcium 8.2 mg/dL (8.4-10.2); Carbon Dioxide 23 mmol/L (22-30); Chloride 110 mmol/L (98-107); Glucose 272 mg/dL (74-99); Magnesium 1.8 mg/dL (1.6-2.3); Non-African American GFR(CKD) 83 (>60 ml/min/1.73 sqM); Potassium 3.6 mmol/L (3.5-5.1); Sodium 140 mmol/L (137-145)
[2023-08-04] MEDS: INSULIN DETEMIR (LEVEMIR) 100 UNIT/ML SYR SQ SCH (09:25)
[2023-08-04] MEDS: ENOXAPARIN 40 MG/0.4 ML SYRINGE SQ SCH (09:25)
[2023-08-04] MEDS: FAMOTIDINE 20 MG TAB PO SCH (09:25)
[2023-08-04] MEDS: DULoxetine HCL 60 MG CAPSULE.DR PO SCH (09:25)
[2023-08-04] MEDS: OXcarbazepine 300 MG TAB PO SCH (09:26)
[2023-08-04] MEDS: OXcarbazepine 150 MG TAB PO SCH (09:27)
[2023-08-04 10:04] LABS: ALT 64 U/L (4-49); AST 74 U/L (17-59); Albumin 2.6 g/dL (3.5-5.0); Alkaline Phosphatase 320 U/L (38-126); Total Bilirubin 0.7 mg/dL (0.2-1.3); Total Protein 5.6 g/dL (6.3-8.2)
[2023-08-04 10:41] LABS: C Reactive Protein 36.9 mg/dL (<1.0)
[2023-08-04 10:43] LABS: Erythrocyte Sedimentation Rate 80 mm/Hr (0-20)
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
--- NOTE | 2023-08-04 12:12 | XR ---
EXAMINATION TYPE: XR sacrum coccyx DATE OF EXAM: 08/03/2023 CLINICAL HISTORY: pain TECHNIQUE: Three views of the sacrum and coccyx are submitted. COMPARISON: None Sacral alae appear symmetric. No evidence for fracture or bony lesion. Sacroiliac joints are within normal limits. Visualized coccygeal segments are free of fracture or lesion. IMPRESSION: Normal study
[2023-08-04 12:25] LABS: Glucose,Whole Blood 251 mg/dL (70-110)
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
[2023-08-04] MEDS: VANCOMYCIN 1,750 MG in SODIUM CHLORIDE 0.9% 500 ML 500 ML IVPB SCH (15:33)
--- NOTE | 2023-08-04 16:02 | CT ---
EXAMINATION TYPE: CT thor lumbar spine wo/w con DATE OF EXAM: 08/04/2023 COMPARISON: Lumbar spine 10/25/2018 HISTORY: bilateral leg weakness CT DLP: 6054 mGycm Automated exposure control for dose reduction was used. Contrast: None Technique: Axial images 3 mm thick sections. Reconstructed images in the coronal and sagittal plane. FINDINGS: There is a superior endplate compression deformity of T10. Posterior wall displacement is evident. No spinal canal stenosis or neural foraminal stenosis. Some scoliosis is present through the thoracolumbar spine. There is loss of disc height L2-3. This was present previously. No focal disc herniations or significant disc bulges are evident. No spinal canal stenosis is present . Broad-based disc bulge appears to be L4-5 with anterior thecal sac flattening. No spinal canal stenos is is present. IMPRESSION: 1. COMPRESSION DEFORMITY SUPERIOR ENDPLATE T9 WITHOUT POSTERIOR WALL DISPLACEMENT IS OF INDETERMINATE AGE. 2. 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
[2023-08-04 17:04] LABS: Glucose,Whole Blood 167 mg/dL (70-110)
[2023-08-04] MEDS: ATORVASTATIN 20 MG TAB PO SCH (18:00)
--- NOTE | 2023-08-04 19:31 | CONS ---
CONSULTATION HISTORY OF PRESENT ILLNESS: This is a 58-year-old gentleman who is well known to me from the wound clinic. He comes every week for his wound care management. The patient has history of diabetes, chronic back problem. The patient has been admitted. CAT scan and shows possible osteo of the 5th metatarsal. The patient was seen in the emergency room. PHYSICAL EXAMINATION: NECK: Supple. No bruit appreciated. CHEST: Clear to auscultation. CARDIAC: First and second sounds present. ABDOMEN: Soft, nontender. EXTREMITIES: Femorals are 1+ bilateral. The patient has a wound on the lateral aspect of left foot with some scab formation noted. The patient also has a wound on the left big toe plantar aspect, base of the wound is granulating. No fluctuation noted. We are waiting for MRI report. We will follow with you, in the meantime continue with IV antibiotic. YEVGENIY / MELANIN: [id number] /
[2023-08-04 20:01] LABS: Glucose,Whole Blood 128 mg/dL (70-110)
[2023-08-04] MEDS: QUEtiapine 400 MG TAB PO SCH (20:54)
--- NOTE | 2023-08-04 21:31 | MR ---
EXAMINATION TYPE: MR brain wo con DATE OF EXAM: 08/04/2023 6:11 PM CLINICAL INDICATION:Male, 58 years old with history of encephalopathy of unkown etiology; PHH, Enceph alopathy of unknown etiology COMPARISON: 08/03/2023. TECHNIQUE: Multi planar, multi sequence imaging was performed through the brain including: T1, T2, In version recovery, Diffusion weighted imaging, and gradient echo imaging. No gadolinium was given. FINDINGS: Mild cerebral atrophy with proportional dilation of ventricular system. Scattered minimal foci of h igh T2 signal intensity are seen within the periventricular white matter. Midline structures show no abnormality. Diffusion-weighted imaging shows no evidence of restricted diffusion. The susceptibility weighted images do not reveal any evidence for micro-hemorrhage. The bone marrow signal is within normal limits. Paranasal sinuses and mastoid air cells: No significant paranasal sinus disease. Visualized orbits: Left aphakia IMPRESSION: 1. No evidence of intracranial mass or acute/subacute infarct. 2. Minimal nonspecific white matter changes, likely secondary to small vessel ischemic disease.
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
[2023-08-05] MEDS: HYDROcodone/APAP 5-325MG 1 EACH TAB PO PRN (01:30)
[2023-08-05] MEDS: VANCOMYCIN 1,750 MG in SODIUM CHLORIDE 0.9% 500 ML 500 ML IVPB SCH (03:57)
[2023-08-05 05:55] LABS: Glucose,Whole Blood 159 mg/dL (70-110)
[2023-08-05 06:53] LABS: VBG PH 7.43 (7.31-7.41)
[2023-08-05] MEDS: LIDOCAINE 1% INJ 10MG/ML (20 ML MDV) ONE (09:09)
[2023-08-05 11:28] LABS: Glucose,Whole Blood 195 mg/dL (70-110)
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
--- NOTE | 2023-08-05 12:06 | P.PN ---
Subjective Progress Note Date: 08/05/23 Principal diagnosis: Reason for follow-up is left foot ulcer and concern for osteomyelitis Patient is a 58-year-old male with a past medical history significant for COPD diabetes mellitus hypertension hyperlipidemia osteoarthritis presenting to the ER for evaluation of mental status changes, patient also have a nonhealing wound to the left foot lateral border x-rays were suspicious for osteomyelitis prompting this infectious disease consultation. On today's evaluation that is 08/05/2023, the patient denies having any fever or any chills, the patient is currently breathing comfortably on room air patient denies having any chest pain occasional cough but no sputum production denies any nausea vomiting no abdominal pain no diarrhea, denies pain to his left foot wound. No CBC was done today cultures from the left foot are currently growing presumptive MRSA and gram-negative bacilli Objective - Vital Signs Vital signs: Vital Signs Temp 97.9 F 08/05/23 09:24 Pulse 101 H 08/05/23 11:47 Resp 16 08/05/23 11:47 BP 116/58 08/05/23 11:47 Pulse Ox 95 08/05/23 11:47 FiO2 Intake & Output 08/04/23 08/05/23 08/05/23 18:59 06:59 18:59 Intake Total 200 Output Total 400 Balance -200 Intake: Intake, IV Titration 100 Amount Piperacillin-Tazobactam 3 100 .375 gm In Sodium Chloride 0.9% 100 ml @ 25 mls/hr IVPB Q8HR [facility] Rx# :[id number] Oral 100 Output: Urine 400 Other: Voiding Method Diaper External Catheter External Catheter # Voids 2 # Bowel Movements 1 1 - Exam GENERAL DESCRIPTION: Middle-age male lying in bed in no distress RESPIRATORY SYSTEM: Unlabored breathing , decreased breath sounds at bases HEART: S1 S2 regular rate and rhythm , ABDOMEN: Soft , no tenderness EXTREMITIES: Left foot wound currently dressed minimal drainage on the dressing - Labs CBC & Chem 7: 08/04/23 08:11 08/04/23 08:11 Labs: Abnormal Lab Results - Last 24 Hours (Table) 08/04/23 08/04/23 08/04/23 Range/Units 08:11 12:23 17:02 ESR 71 H (0-20) mm/Hr VBG pH (7.31-7.41) POC Glucose (mg/dL) 251 H 167 H (70-110) mg/dL 08/04/23 08/05/23 08/05/23 Range/Units 19:59 05:54 06:27 ESR (0-20) mm/Hr VBG pH 7.43 H (7.31-7.41) POC Glucose (mg/dL) 128 H 159 H (70-110) mg/dL 08/05/23 Range/Units 11:23 ESR (0-20) mm/Hr VBG pH (7.31-7.41) POC Glucose (mg/dL) 195 H (70-110) mg/dL Microbiology - Last 24 Hours (Table) 08/03/23 17:30 Blood Culture - Preliminary Blood 08/03/23 17:45 Blood Culture - Preliminary Blood 08/03/23 16:06 Gram Stain - Preliminary Foot - Left Wound Culture - Preliminary Presumptive MRSA Gram Neg Bacilli Assessment and Plan (1) Non-pressure chronic ulcer of other part of left foot with fat layer exposed Current Visit: Yes Status: Acute Code(s): L97.522 - NON-PRS CHRONIC ULCER OTH PRT LEFT FOOT W FAT LAYER EXPOSED SNOMED Code(s): 43339352913652973 (2) Osteomyelitis Current Visit: Yes Status: Acute Code(s): M86.9 - OSTEOMYELITIS, UNSPECIFIED SNOMED Code(s): 31147729 (3) Diabetic foot ulcer Current Visit: No Status: Acute Code(s): E11.621 - TYPE 2 DIABETES MELLITUS WITH FOOT ULCER; L97.509 - NON-PRESSURE CHRONIC ULCER OTH PRT UNSP FOOT W UNSP SEVERITY SNOMED Code(s): 394405827 Plan: 1patient with a nonhealing wound to the left foot lateral border at the base of the fifth metatarsal the wound has been there for couple of weeks. Now with evidence of significant changes on the x-ray did have elevated white count and elevated inflammatory markers concerning for possible osteomyelitis, local culture currently growing presumptive MRSA and gram-negative bacilli 2-await vascular surgery for debridement and deep cultures 3-patient to continue with vancomycin and Zosyn while waiting for the culture to finalize and will monitor kidney function closely Dictation was produced using [employer] dictation software. please excuse any grammatical, word or spelling errors. Time with Patient: Less than 30
[2023-08-05 17:03] LABS: Glucose,Whole Blood 260 mg/dL (70-110)
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
[2023-08-05] MEDS: SILVER GEL 44.4 APPLIC/44.4 ML TUBE TOPICAL SCH (19:39)
[2023-08-05 20:08] LABS: Glucose,Whole Blood 167 mg/dL (70-110)
[2023-08-06] MEDS: MORPHINE SULFATE 4 MG/ML SYRINGE IV PRN (06:06)
[2023-08-06 07:45] LABS: Glucose,Whole Blood 177 mg/dL (70-110)
--- NOTE | 2023-08-06 08:02 | P.PN ---
Progress Note - Text 58-year old diabetic male patient known to us from the wound clinic. Patient has a wound on the plantar aspect aspect of the right big toe base of the wound was cleaned and letting clean no discharge noted patient has a wound to the lateral aspect of the foot cultures came back as a MRSA and gram-positive cocci under care of infectious disease. Change dressing reviewed with [place] tan will continue dressing should be changed on daily basis
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
--- NOTE | 2023-08-06 11:19 | MR ---
EXAMINATION TYPE: MR thoracic spine wo con DATE OF EXAM: 08/06/2023 COMPARISON: CT 08/04/2023 HISTORY: T9 compression fracture acute vs. Chronic CONTRAST: Performed utilizing 0 mL intravenous Gadavist gadolinium contrast. TECHNIQUE: Multiplanar, multiecho imaging on a 3.0 Marifer magnet is performed through the thoracic spi ne. Spinal cord maintains normal signal through its visualized course. There is a scoliosis present with convexity to the right. There is mild anterior vertebral body height loss at T10. Small Schmorl's node is present. No verteb ral body edema however is evident. No posterior wall displacement is evident. No cord contact or cord deformity Disc heights are preserved. Disc desiccation is present at the T9-10 level. Remaining discs have normal hydration. No spinal canal stenosis is evident. IMPRESSION: 1. The mild compression deformity at T10 appears to be old. Schmorl's node is present. Mild loss of a nterior vertebral body heights evident.
[2023-08-06 12:26] LABS: Glucose,Whole Blood 163 mg/dL (70-110)
[2023-08-06 13:45] LABS: Basophils % (A) 0 %; Eosinophils # (A) 0.1 k/uL (0-0.7); Eosinophils % (A) 1 %; HGB 10.8 gm/dL (13.0-17.5); Lymphocytes # (A) 0.9 k/uL (1.0-4.8); Lymphocytes % (A) 10 %; MCH 29.8 pg (25.0-35.0); MCHC 33.6 g/dL (31.0-37.0); MCV 88.6 fL (80.0-100.0); Mean Platelet Volume 8.1; Monocytes # (A) 0.4 k/uL (0-1.0); Monocytes % (A) 4 %; Neutrophils # (A) 7.7 k/uL (1.3-7.7); Neutrophils % (A) 84 %; Platelet Count 195 k/uL (150-450); RBC 3.61 m/uL (4.30-5.90); RDW 14.1 % (11.5-15.5); WBC 9.2 k/uL (3.8-10.6)
[2023-08-06 14:01] LABS: African American GFR (CKD) >90 (>60 ml/min/1.73 sqM); Anion Gap 10 mmol/L; Blood Urea Nitrogen 12 mg/dL (9-20); Calcium 8.2 mg/dL (8.4-10.2); Carbon Dioxide 21 mmol/L (22-30); Chloride 109 mmol/L (98-107); Glucose 171 mg/dL (74-99); Non-African American GFR(CKD) >90 (>60 ml/min/1.73 sqM); Potassium 3.2 mmol/L (3.5-5.1); Sodium 140 mmol/L (137-145)
--- NOTE | 2023-08-06 14:16 | P.PN ---
Progress Note - Text Progress Note Date: 08/06/23 MRI of the thoracic spine that was performed today, 08/06/23 has been reviewed and demonstrates a chronic T10 compression fracture without retropulsion. At this time we do not recommend any emergent/urgent orthopedic surgical intervention. Patient may follow-up with Dr. Reich's office for further evaluation as needed. Orthopedics is signing off at this time. Please do not hesitate to contact us for any further questions. Thank you for this consult.
[2023-08-06] MEDS: VANCOMYCIN TROUGH DUE 1 EACH MISC MISCELLANE ONE (15:25)
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
[2023-08-06] MEDS: CEFEPIME 2 GM in SODIUM CHLORIDE 0.9% 100 ML IVPB SCH (15:33)
[2023-08-06] MEDS: POTASSIUM CHLORIDE ER 20 MEQ TAB.ER PO STA (15:37)
--- NOTE | 2023-08-06 16:23 | P.PN ---
Subjective Progress Note Date: 08/06/23 Principal diagnosis: Reason for follow-up is left foot ulcer and concern for osteomyelitis Patient is a 58-year-old male with a past medical history significant for COPD diabetes mellitus hypertension hyperlipidemia osteoarthritis presenting to the ER for evaluation of mental status changes, patient also have a nonhealing wound to the left foot lateral border x-rays were suspicious for osteomyelitis prompting this infectious disease consultation. On today's evaluation that is 08/06/2023, patient remains to be afebrile, the patient is breathing comfortably on room air, the patient denies any chest pain shortness of breath or cough no nausea vomiting no abdominal pain no diarrhea has been reported and denies any worsening pain to the foot wound area. Patient white count normalized to 9.2, creatinine 0.82 local culture finalized with MRSA and Serratia marcescens Objective - Vital Signs Vital signs: Vital Signs Temp 98 F 08/06/23 07:53 Pulse 91 08/06/23 07:53 Resp 16 08/06/23 07:53 BP 122/65 08/06/23 07:53 Pulse Ox 92 L 08/06/23 07:53 FiO2 Intake & Output 08/05/23 08/06/23 08/06/23 18:59 06:59 18:59 Intake Total 130 740 Balance 130 740 Intake: IV 10 Invasive Line 3 10 Intake, IV Titration 200 Amount Piperacillin-Tazobactam 3 200 .375 gm In Sodium Chloride 0.9% 100 ml @ 25 mls/hr IVPB Q8HR [facility] Rx# :[id number] Oral 120 540 Other: Voiding Method External Catheter Toilet # Voids 2 1 # Bowel Movements 1 - Exam GENERAL DESCRIPTION: Middle-age male lying in bed in no distress RESPIRATORY SYSTEM: Unlabored breathing , decreased breath sounds at bases HEART: S1 S2 regular rate and rhythm , ABDOMEN: Soft , no tenderness EXTREMITIES: Left foot wound currently dressed minimal drainage on the dressing - Labs CBC & Chem 7: 08/06/23 13:26 08/06/23 13:26 Labs: Abnormal Lab Results - Last 24 Hours (Table) 08/05/23 08/05/23 08/05/23 Range/Units 11:23 17:00 20:07 POC Glucose (mg/dL) 195 H 260 H 167 H (70-110) mg/dL 08/06/23 Range/Units 07:38 POC Glucose (mg/dL) 177 H (70-110) mg/dL Microbiology - Last 24 Hours (Table) 08/05/23 08:24 Gram Stain - Preliminary Foot - Left Tissue Culture - Preliminary Presumptive Staph aureus 08/03/23 17:30 Blood Culture - Preliminary Blood 08/03/23 17:45 Blood Culture - Preliminary Blood 08/03/23 16:06 Anaerobic Culture - Preliminary Foot - Left 08/03/23 16:06 Gram Stain - Final Foot - Left Wound Culture - Final Methicillin resist S. aureus Serratia marcescens Assessment and Plan (1) Non-pressure chronic ulcer of other part of left foot with fat layer exposed Current Visit: Yes Status: Acute Code(s): L97.522 - NON-PRS CHRONIC ULCER OTH PRT LEFT FOOT W FAT LAYER EXPOSED SNOMED Code(s): 63186842282499522 (2) Osteomyelitis Current Visit: Yes Status: Acute Code(s): M86.9 - OSTEOMYELITIS, UNSPECIFIED SNOMED Code(s): 26697484 (3) Diabetic foot ulcer Current Visit: No Status: Acute Code(s): E11.621 - TYPE 2 DIABETES MELLITUS WITH FOOT ULCER; L97.509 - NON-PRESSURE CHRONIC ULCER OTH PRT UNSP FOOT W UNSP SEVERITY SNOMED Code(s): 481872711 Plan: 1patient with a nonhealing wound to the left foot lateral border at the base of the fifth metatarsal the wound has been there for couple of weeks. Now with evidence of significant changes on the x-ray did have elevated white count and e levated inflammatory markers concerning for possible osteomyelitis, local culture currently growing MRSA and Serratia marcescens 2-patient will benefit from debridement and deep cultures, vascular surgery already on the case 3superficial culture did grew MRSA and Serratia marcescens 4we will discontinue Zosyn add cefepime to cover for Serratia continue with the vancomycin will need a PICC line for outpatient IV antibiotics Dictation was produced using K[employer]u dictation software. please excuse any grammatical, word or spelling errors. Time with Patient: Less than 30
[2023-08-06 17:22] LABS: Glucose,Whole Blood 150 mg/dL (70-110)
[2023-08-06 20:14] LABS: Glucose,Whole Blood 145 mg/dL (70-110)
[2023-08-06] MEDS: VANCOMYCIN 1,750 MG in SODIUM CHLORIDE 0.9% 500 ML 500 ML IVPB SCH (21:47)
--- NOTE | 2023-08-06 22:01 | EEG ---
ELECTROENCEPHALOGRAM REPORT CLINICAL HISTORY: This is a 58-year-old gentleman with history of seizures who has altered mental status. The video EEG is obtained to evaluate for seizure epileptiform activity. RELEVANT MEDICATION: Cymbalta, Trilipetal. EEG TYPE: A routine 21-channel EEG with video using the 10/20 electrode placement system. DESCRIPTION: Wakefulness is only obtained. During awake state, there is a posterior dominant rhythm consists of 6 to 7 hertz activity that is well modulated, well sustained. At times, the background consists of diffuse nonrhythmic polymorphic delta activity. There is no physiological stage 2 sleep architecture. There is no focal slowing. Interictal and ictal is none. ACTIVATION PROCEDURE: Photic stimulation, hyperventilation is not performed. CLINICAL INTERPRETATION: This is an abnormal routine EEG. The background slowing is suggestive of mild-to- moderate encephalopathy. Otherwise, there is no focal slowing, epileptiform discharge, or seizure on the EEG. Clinical correlation is recommended. YEVGENIY / LIZZY: [id number] / SHASTA
[2023-08-07 07:15] LABS: Glucose,Whole Blood 162 mg/dL (70-110)
[2023-08-07 08:06] LABS: African American GFR (CKD) >90 (>60 ml/min/1.73 sqM); Anion Gap 9 mmol/L; Blood Urea Nitrogen 9 mg/dL (9-20); Calcium 8.2 mg/dL (8.4-10.2); Carbon Dioxide 22 mmol/L (22-30); Chloride 109 mmol/L (98-107); Glucose 148 mg/dL (74-99); Non-African American GFR(CKD) >90 (>60 ml/min/1.73 sqM); Potassium 3.3 mmol/L (3.5-5.1); Sodium 140 mmol/L (137-145)
[2023-08-07] MEDS: POTASSIUM CHLORIDE ER 20 MEQ TAB.ER PO STA (09:11)
[2023-08-07 12:17] LABS: Glucose,Whole Blood 177 mg/dL (70-110)
--- NOTE | 2023-08-07 12:50 | P.PN ---
Subjective Progress Note Date: 08/07/23 Principal diagnosis: Reason for follow-up is left foot ulcer and concern for osteomyelitis Patient is a 58-year-old male with a past medical history significant for COPD diabetes mellitus hypertension hyperlipidemia osteoarthritis presenting to the ER for evaluation of mental status changes, patient also have a nonhealing wound to the left foot lateral border x-rays were suspicious for osteomyelitis prompting this infectious disease consultation. On today's evaluation that is 08/07/2023, the patient continues to be afebrile patient is currently breathing comfortably on room air not requiring any oxygen, the patient denies having any chest pain shortness of breath or cough, the patient denies nausea vomiting no abdominal pain no diarrhea. Patient denies pain to the left foot wound area. Patient white count of 9.2 as of yesterday creatinine 0.80 culture with MRSA and Serratia marcescens blood culture negative Objective - Vital Signs Vital signs: Vital Signs Temp 98.0 F 08/07/23 07:08 Pulse 88 08/07/23 07:08 Resp 19 08/07/23 07:08 BP 138/74 08/07/23 07:08 Pulse Ox 92 L 08/07/23 07:08 FiO2 Intake & Output 08/06/23 08/07/23 08/07/23 18:59 06:59 18:59 Intake Total 2000 100 Output Total 500 Balance 1500 100 Intake: Intake, IV Titration 1600 Amount Cefepime 2 gm In Sodium 100 Chloride 0.9% 100 ml @ 25 mls/hr IVPB Q8HR [facility] Rx# :[id number] Piperacillin-Tazobactam 3 100 .375 gm In Sodium Chloride 0.9% 100 ml @ 25 mls/hr IVPB Q8HR [facility] Rx# :[id number] Sodium Chloride 0.9% 1, 900 000 ml @ 75 mls/hr IV . [id number] [facility] Rx#:[id number] Vancomycin 1,750 mg In 500 Sodium Chloride 0.9% 500 ml 500 ml @ 167 mls/hr IVPB Q16H [facility] Rx#: [id number] Oral 400 100 Output: Urine 500 Other: Voiding Method Toilet Toilet Toilet # Voids 2 # Bowel Movements 1 - Exam GENERAL DESCRIPTION: Middle-age male lying in bed in no distress RESPIRATORY SYSTEM: Unlabored breathing , decreased breath sounds at bases HEART: S1 S2 regular rate and rhythm , ABDOMEN: Soft , no tenderness EXTREMITIES: Left foot wound currently dressed minimal drainage on the dressing - Labs CBC & Chem 7: 08/06/23 13:26 08/07/23 06:59 Labs: Abnormal Lab Results - Last 24 Hours (Table) 08/06/23 08/06/23 08/06/23 Range/Units 13:26 13:26 17:09 RBC 3.61 L (4.30-5.90) m/uL Hgb 10.8 L (13.0-17.5) gm/dL Hct 32.0 L (39.0-53.0) % Lymphocytes # 0.9 L (1.0-4.8) k/uL Potassium 3.2 L (3.5-5.1) mmol/L Chloride 109 H (98-107) mmol/L Carbon Dioxide 21 L (22-30) mmol/L Glucose 171 H (74-99) mg/dL POC Glucose (mg/dL) 150 H (70-110) mg/dL Calcium 8.2 L (8.4-10.2) mg/dL 08/06/23 08/07/23 08/07/23 Range/Units 20:11 06:59 07:13 RBC (4.30-5.90) m/uL Hgb (13.0-17.5) gm/dL Hct (39.0-53.0) % Lymphocytes # (1.0-4.8) k/uL Potassium 3.3 L (3.5-5.1) mmol/L Chloride 109 H (98-107) mmol/L Carbon Dioxide (22-30) mmol/L Glucose 148 H (74-99) mg/dL POC Glucose (mg/dL) 145 H 162 H (70-110) mg/dL Calcium 8.2 L (8.4-10.2) mg/dL 08/07/23 Range/Units 12:15 RBC (4.30-5.90) m/uL Hgb (13.0-17.5) gm/dL Hct (39.0-53.0) % Lymphocytes # (1.0-4.8) k/uL Potassium (3.5-5.1) mmol/L Chloride (98-107) mmol/L Carbon Dioxide (22-30) mmol/L Glucose (74-99) mg/dL POC Glucose (mg/dL) 177 H (70-110) mg/dL Calcium (8.4-10.2) mg/dL Microbiology - Last 24 Hours (Table) 08/03/23 17:30 Blood Culture - Preliminary Blood 08/03/23 17:45 Blood Culture - Preliminary Blood 08/05/23 08:24 Gram Stain - Preliminary Foot - Left Tissue Culture - Preliminary Presumptive Staph aureus Assessment and Plan (1) Non-pressure chronic ulcer of other part of left foot with fat layer exposed Current Visit: Yes Status: Acute Code(s): L97.522 - NON-PRS CHRONIC ULCER OTH PRT LEFT FOOT W FAT LAYER EXPOSED SNOMED Code(s): 77324218916684647 (2) Osteomyelitis Current Visit: Yes Status: Acute Code(s): M86.9 - OSTEOMYELITIS, UNSPECIFIED SNOMED Code(s): 54014742 (3) Diabetic foot ulcer Current Visit: No Status: Acute Code(s): E11.621 - TYPE 2 DIABETES MELLITUS WITH FOOT ULCER; L97.509 - NON-PRESSURE CHRONIC ULCER OTH PRT UNSP FOOT W UNSP SEVERITY SNOMED Code(s): 591973423 Plan: 1patient with a nonhealing wound to the left foot lateral border at the base of the fifth metatarsal the wound has been there for couple of weeks. Now with evidence of significant changes on the x-ray did have elevated white count and elevated inflammatory markers concerning for possible osteomyelitis, local culture currently growing MRSA and Serratia marcescens 2-patient will benefit from debridement and deep cultures, vascular surgery already on the case 3superficial culture did grew MRSA and Serratia marcescens, repeat culture growing Staph aureus 4patient to continue with cefepime and vancomycin, PICC line has been ordered for outpatient IV antibiotics Dictation was produced using [employer] dictation software. please excuse any grammatical, word or spelling errors. Time with Patient: Less than 30
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
[2023-08-07] MEDS: LIDOCAINE 1% INJ 10MG/ML (5 ML VIAL-PF) SQ ONE (15:03)
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
--- NOTE | 2023-08-07 15:44 | IR ---
EXAMINATION TYPE: IR cvc insert >=5 years Intraoperative/procedural fluoroscopic services were provid ed. CLINICAL INDICATION:Male, 58 years old with history of antibiotics, 51cm, accucath exchanged for picc ; , [facility] Total fluoroscopy time is 0.1 min. DAP: 0.110 Gycm2 Please see the operative/procedural note for further details.
--- NOTE | 2023-08-07 16:01 | P.OP ---
Date of Procedure: 08/07/23 Preoperative Diagnosis: Need for long-term IV antibiotic therapy. Postoperative Diagnosis: Same. Procedure(s) Performed: Guidewire exchange of a peripheral IV to a peripherally inserted central venous catheter with fluoroscopic guidance. Anesthesia: local Surgeon: Horace Sotelo Estimated Blood Loss (ml): 5 IV fluids (ml): 0 Urine output (ml): 0 Pathology: none sent Condition: stable Disposition: no change Indications for Procedure: Patient is a 58-year-old male who was suffering from a open wound of the lower extremity and requires IV antibiotics on a long-term basis for appropriate therapy. Patient has a peripherally inserted IV in the left humeral area. Patient is offered wire exchange of this peripheral catheter for a peripherally inserted central venous catheter. Description of Procedure: Patient was brought to the cardiac Driver Service Technician. The left upper extremity sterilely prepped and draped in usual manner. Through the IV a 0.018 guidewire was advanced. The IV catheter was withdrawn and a micropuncture sheath and dilator were advanced over the guidewire. The micropuncture sheath and dilator were exchanged for a PICC sheath and dilator. Guidewire was advanced to the appropriate level and measured at 51 cm. The catheter was cut to 51 cm. Through the sheath the catheter was advanced into the central venous system with fluoroscopic guidance. The sheath was peeled away. The catheter was found to be in good position. Blood was easily aspirated through the catheter and the catheter was flushed with heparinized saline solution. The catheter was secured to the skin. Patient tolerated procedure well and was returned to his room in satisfactory and stable condition. Total fluoroscopy time: 6 seconds
[2023-08-07] MEDS: LOSARTAN 25 MG TAB PO SCH (16:13)
[2023-08-07 17:51] LABS: Glucose,Whole Blood 176 mg/dL (70-110)
[2023-08-07 20:13] LABS: Glucose,Whole Blood 163 mg/dL (70-110)
[2023-08-08 07:05] LABS: Glucose,Whole Blood 134 mg/dL (70-110)
[2023-08-08 09:02] LABS: African American GFR (CKD) >90 (>60 ml/min/1.73 sqM); Anion Gap 9 mmol/L; Blood Urea Nitrogen 7 mg/dL (9-20); Calcium 8.4 mg/dL (8.4-10.2); Carbon Dioxide 22 mmol/L (22-30); Chloride 108 mmol/L (98-107); Glucose 117 mg/dL (74-99); Magnesium 1.4 mg/dL (1.6-2.3); Non-African American GFR(CKD) >90 (>60 ml/min/1.73 sqM); Potassium 3.3 mmol/L (3.5-5.1); Sodium 139 mmol/L (137-145)
--- NOTE | 2023-08-08 10:58 | PN ---
PROGRESS NOTE A 58-year-old gentleman. The patient came with wound in the lateral aspect of the left foot and big toe plantar aspect. We will continue with local wound care and IV antibiotic. Wound is improving. We have been . CT showed possible osteo of the 5th metatarsal bone. The patient had a PICC line placed yesterday. If the patient goes to long-term, the patient should follow up in the wound clinic at [facility] on Thursday. YEVGENIY / MELANIN: [id number] /
[2023-08-08 12:25] LABS: Glucose,Whole Blood 132 mg/dL (70-110)
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
[2023-08-08] MEDS: POTASSIUM CHLORIDE ER 20 MEQ TAB.ER PO STA (14:02)
[2023-08-08] MEDS: MAGNESIUM SULFATE-D5W PMX 1 GM in DEXTROSE/WATER 1 100ML.BAG IVPB SCH (14:02)
[2023-08-08 17:13] LABS: Glucose,Whole Blood 129 mg/dL (70-110)
[2023-08-08] MEDS: CEFEPIME 2 GM in SODIUM CHLORIDE 0.9% 100 ML IVPB SCH (20:04)
[2023-08-08 20:14] LABS: Glucose,Whole Blood 150 mg/dL (70-110)
[2023-08-09 07:46] LABS: Glucose,Whole Blood 141 mg/dL (70-110)
--- NOTE | 2023-08-09 09:25 | P.PN ---
Subjective Progress Note Date: 08/08/23 Principal diagnosis: Reason for follow-up is left foot ulcer and concern for osteomyelitis Patient is a 58-year-old male with a past medical history significant for COPD diabetes mellitus hypertension hyperlipidemia osteoarthritis presenting to the ER for evaluation of mental status changes, patient also have a nonhealing wound to the left foot lateral border x-rays were suspicious for osteomyelitis prompting this infectious disease consultation. On today's evaluation that is 08/08/2023, the patient denies having any fever or any chills, patient is breathing comfortably on room air, the patient denies having any chest pain shortness of breath , Pt did have occasional cough patient denies having any nausea vomiting diarrhea and abdominal pain. No CBC was done today patient did have a creatinine 0.78 Objective - Vital Signs Vital signs: Vital Signs Temp 97.7 F 08/08/23 07:05 Pulse 90 08/08/23 07:05 Resp 15 08/08/23 07:05 BP 135/69 08/08/23 07:05 Pulse Ox 97 08/08/23 07:05 FiO2 Intake & Output 08/07/23 08/08/23 08/08/23 18:59 06:59 18:59 Intake Total 240 Output Total 400 Balance -160 Weight 91.9 kg 97.7 kg Intake: Oral 240 Output: Urine 400 Other: Voiding Method Toilet # Voids 6 - Exam GENERAL DESCRIPTION: Middle-age male lying in bed in no distress RESPIRATORY SYSTEM: Unlabored breathing , decreased breath sounds at bases HEART: S1 S2 regular rate and rhythm , ABDOMEN: Soft , no tenderness EXTREMITIES: Left foot wound currently dressed minimal drainage on the dressing - Labs CBC & Chem 7: 08/06/23 13:26 08/08/23 07:56 Labs: Abnormal Lab Results - Last 24 Hours (Table) 08/07/23 08/07/23 08/07/23 Range/Units 12:15 17:49 20:12 Potassium (3.5-5.1) mmol/L Chloride (98-107) mmol/L BUN (9-20) mg/dL Glucose (74-99) mg/dL POC Glucose (mg/dL) 177 H 176 H 163 H (70-110) mg/dL Magnesium (1.6-2.3) mg/dL 08/08/23 08/08/23 Range/Units 07:04 07:56 Potassium 3.3 L (3.5-5.1) mmol/L Chloride 108 H (98-107) mmol/L BUN 7 L (9-20) mg/dL Glucose 117 H (74-99) mg/dL POC Glucose (mg/dL) 134 H (70-110) mg/dL Magnesium 1.4 L (1.6-2.3) mg/dL Microbiology - Last 24 Hours (Table) 08/05/23 08:24 Gram Stain - Final Foot - Left Tissue Culture - Final Methicillin resist S. aureus Alpha Hemolytic Streptococcus Assessment and Plan (1) Non-pressure chronic ulcer of other part of left foot with fat layer exposed Current Visit: Yes Status: Acute Code(s): L97.522 - NON-PRS CHRONIC ULCER OTH PRT LEFT FOOT W FAT LAYER EXPOSED SNOMED Code(s): 27799456832151643 (2) Osteomyelitis Current Visit: Yes Status: Acute Code(s): M86.9 - OSTEOMYELITIS, UNSPECIFIED SNOMED Code(s): 27819820 (3) Diabetic foot ulcer Current Visit: No Status: Acute Code(s): E11.621 - TYPE 2 DIABETES MELLITUS WITH FOOT ULCER; L97.509 - NON-PRESSURE CHRONIC ULCER OTH PRT UNSP FOOT W UNSP SEVERITY SNOMED Code(s): 426005547 Plan: 1patient with a nonhealing wound to the left foot lateral border at the base of the fifth metatarsal the wound has been there for couple of weeks. Now with evidence of significant changes on the x-ray did have elevated white count and elevated inflammatory markers concerning for possible osteomyelitis, local culture currently growing MRSA and Serratia marcescens 2-superficial culture did grew MRSA and Serratia marcescens, repeat culture growing Staph aureus 3 patient did have placement of the PICC line by vascular surgery on 08/07/2023, patient to continue with cefepime and vancomycin, and monitor clinical course closely Dictation was produced using [employer] dictation software. please excuse any grammatical, word or spelling errors. Time with Patient: Less than 30
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
[2023-08-09 12:58] LABS: Glucose,Whole Blood 139 mg/dL (70-110)
[2023-08-09] MEDS: VANCOMYCIN TROUGH DUE 1 EACH MISC MISCELLANE ONE (13:13)
[2023-08-09 13:28] LABS: African American GFR (CKD) >90 (>60 ml/min/1.73 sqM); Non-African American GFR(CKD) >90 (>60 ml/min/1.73 sqM)
[2023-08-09 13:29] LABS: African American GFR (CKD) >90 (>60 ml/min/1.73 sqM); Anion Gap 9 mmol/L; Blood Urea Nitrogen 6 mg/dL (9-20); Calcium 8.7 mg/dL (8.4-10.2); Carbon Dioxide 24 mmol/L (22-30); Chloride 107 mmol/L (98-107); Glucose 113 mg/dL (74-99); Magnesium 1.9 mg/dL (1.6-2.3); Non-African American GFR(CKD) >90 (>60 ml/min/1.73 sqM); Potassium 3.8 mmol/L (3.5-5.1); Sodium 140 mmol/L (137-145)
--- NOTE | 2023-08-09 16:30 | P.PN ---
Subjective Progress Note Date: 08/09/23 Principal diagnosis: Reason for follow-up is left foot ulcer and concern for osteomyelitis Patient is a 58-year-old male with a past medical history significant for COPD diabetes mellitus hypertension hyperlipidemia osteoarthritis presenting to the ER for evaluation of mental status changes, patient also have a nonhealing wound to the left foot lateral border x-rays were suspicious for osteomyelitis prompting this infectious disease consultation. On today's evaluation that is 08/09/2023, the patient remains to be afebrile, patient is breathing comfortably on room air and no need for supplemental oxygen, the patient denies chest pain shortness of breath or cough, patient denies abdominal pain and no nausea vomiting or diarrhea, denies pain to the left foot wound area. No CBC was done today creatinine 0.77 Objective - Vital Signs Vital signs: Vital Signs Temp 97.5 F L 08/09/23 13:16 Pulse 102 H 08/09/23 13:16 Resp 18 08/09/23 13:16 BP 95/70 08/09/23 13:16 Pulse Ox 96 08/09/23 13:16 FiO2 Intake & Output 08/08/23 08/09/23 08/09/23 18:59 06:59 18:59 Intake Total 1100 590 Output Total 400 200 Balance 700 590 -200 Weight 97.8 kg Intake: Intake, IV Titration 1100 Amount Cefepime 2 gm In Sodium 100 Chloride 0.9% 100 ml @ 25 mls/hr IVPB Q8H [facility] Rx#: [id number] Magnesium Sulfate-D5w Pmx 400 1 gm In Dextrose/Water 1 100ml.bag @ 100 mls/hr IVPB Q1H [facility] Rx#: [id number] Sodium Chloride 0.9% 1, 600 000 ml @ 75 mls/hr IV . [id number] [facility] Rx#:[id number] Oral 590 Output: Urine 400 200 - Exam GENERAL DESCRIPTION: Middle-age male lying in bed in no distress RESPIRATORY SYSTEM: Unlabored breathing , decreased breath sounds at bases HEART: S1 S2 regular rate and rhythm , ABDOMEN: Soft , no tenderness EXTREMITIES: Left foot wound currently dressed minimal drainage on the dressing - Labs CBC & Chem 7: 08/06/23 13:26 08/09/23 12:46 Labs: Abnormal Lab Results - Last 24 Hours (Table) 08/08/23 08/08/23 08/09/23 Range/Units 17:12 20:13 07:45 BUN (9-20) mg/dL Glucose (74-99) mg/dL POC Glucose (mg/dL) 129 H 150 H 141 H (70-110) mg/dL 08/09/23 08/09/23 Range/Units 12:46 12:56 BUN 6 L (9-20) mg/dL Glucose 113 H (74-99) mg/dL POC Glucose (mg/dL) 139 H (70-110) mg/dL Microbiology - Last 24 Hours (Table) 08/03/23 17:30 Blood Culture - Final Blood 08/03/23 17:45 Blood Culture - Final Blood 08/05/23 08:24 Anaerobic Culture - Final Foot - Left Assessment and Plan (1) Non-pressure chronic ulcer of other part of left foot with fat layer exposed Current Visit: Yes Status: Acute Code(s): L97.522 - NON-PRS CHRONIC ULCER OTH PRT LEFT FOOT W FAT LAYER EXPOSED SNOMED Code(s): 68907849295915988 (2) Osteomyelitis Current Visit: Yes Status: Acute Code(s): M86.9 - OSTEOMYELITIS, UNSPECIFIED SNOMED Code(s): 91308451 (3) Diabetic foot ulcer Current Visit: No Status: Acute Code(s): E11.621 - TYPE 2 DIABETES MELLITUS WITH FOOT ULCER; L97.509 - NON-PRESSURE CHRONIC ULCER OTH PRT UNSP FOOT W UNSP SEVERITY SNOMED Code(s): 589377599 Plan: 1patient with a nonhealing wound to the left foot lateral border at the base of the fifth metatarsal the wound has been there for couple of weeks. Now with evidence of significant changes on the x-ray did have elevated white count and elevated inflammatory markers concerning for possible osteomyelitis, local culture currently growing MRSA and Serratia marcescens 2-superficial culture did grew MRSA and Serratia marcescens, repeat culture growing MRSA 3 patient did have placement of the PICC line by vascular surgery on 08/07/2023, 4- patient to continue with cefepime and vancomycin, with a plan for a total of 6-week course of therapy on discharge Dictation was produced using [employer] software. please excuse any grammatical, word or spelling errors.
[2023-08-09 17:12] LABS: Glucose,Whole Blood 96 mg/dL (70-110)
[2023-08-09 20:44] LABS: Glucose,Whole Blood 89 mg/dL (70-110)
[2023-08-10] MEDS: ONDANSETRON 4 MG/2 ML VIAL IVP STA (01:40)
[2023-08-10 07:22] LABS: African American GFR (CKD) >90 (>60 ml/min/1.73 sqM); Non-African American GFR(CKD) >90 (>60 ml/min/1.73 sqM)
[2023-08-10 07:28] LABS: Glucose,Whole Blood 137 mg/dL (70-110)
[2023-08-10] MEDS: ONDANSETRON 4 MG/2 ML VIAL IVP PRN (09:21)
[2023-08-10] MEDS: LORazepam 2 MG/ML INJ IV STA (09:43)
--- NOTE | 2023-08-10 09:57 | XR ---
EXAMINATION TYPE: XR abdomen 1V DATE OF EXAM: 08/10/2023 COMPARISON: 07/08/2019 HISTORY: Pain TECHNIQUE: One view abdominal series FINDINGS: The osseous structures are intact. The bowel gas pattern is nonspecific. Lung bases are clear. Arth ropathy of the hips. Surgical clips in the gallbladder fossa. Portions of the right abdomen are not i ncluded in the [id number]. Suspect a small hiatal hernia. IMPRESSION: 1. Exam limited due to positioning. Grossly nonspecific abdomen..
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
--- NOTE | 2023-08-10 12:38 | P.PN ---
Subjective Progress Note Date: 08/10/23 Principal diagnosis: Reason for follow-up is left foot ulcer and concern for osteomyelitis Patient is a 58-year-old male with a past medical history significant for COPD diabetes mellitus hypertension hyperlipidemia osteoarthritis presenting to the ER for evaluation of mental status changes, patient also have a nonhealing wound to the left foot lateral border x-rays were suspicious for osteomyelitis prompting this infectious disease consultation. On today's evaluation that is 08/10/2023, the patient continues to be afebrile, patient is breathing comfortably on room air, the patient denies chest pain shortness of breath and no significant cough, patient apparently did have an episode of vomiting yesterday per the nursing staff however the patient denies abdominal pain and no diarrhea. Denies pain to the left foot. Patient did have a creatinine 0.85 Objective - Vital Signs Vital signs: Vital Signs Temp 98.4 F 08/10/23 08:00 Pulse 72 08/10/23 08:00 Resp 17 08/10/23 08:00 BP 152/68 08/10/23 08:00 Pulse Ox 98 08/10/23 08:00 FiO2 Intake & Output 08/09/23 08/10/23 08/10/23 18:59 06:59 18:59 Intake Total 1050 700 Output Total 600 150 300 Balance 450 550 -300 Weight 97.8 kg Intake: Intake, IV Titration 1050 700 Amount Cefepime 2 gm In Sodium 100 200 Chloride 0.9% 100 ml @ 25 mls/hr IVPB Q8H P[facility]O Rx#: [id number] Sodium Chloride 0.9% 1, 450 000 ml @ 75 mls/hr IV . [id number] PILO Rx#:[id number] Vancomycin 1,750 mg In 500 500 Sodium Chloride 0.9% 500 ml 500 ml @ 167 mls/hr IVPB Q16H PILO Rx#: [id number] Output: Urine 600 300 Emesis 150 Other: # Voids 3 - Exam GENERAL DESCRIPTION: Middle-age male lying in bed in no distress RESPIRATORY SYSTEM: Unlabored breathing , decreased breath sounds at bases HEART: S1 S2 regular rate and rhythm , ABDOMEN: Soft , no tenderness EXTREMITIES: Left foot wound currently dressed minimal drainage on the dressing - Labs CBC & Chem 7: 08/06/23 13:26 08/10/23 06:07 Labs: Abnormal Lab Results - Last 24 Hours (Table) 08/09/23 08/09/23 08/10/23 Range/Units 12:46 12:56 07:09 BUN 6 L (9-20) mg/dL Glucose 113 H (74-99) mg/dL POC Glucose (mg/dL) 139 H 137 H (70-110) mg/dL Microbiology - Last 24 Hours (Table) 08/03/23 16:06 Anaerobic Culture - Final Foot - Left Anaerobic Gram Positive Cocci Assessment and Plan (1) Non-pressure chronic ulcer of other part of left foot with fat layer exposed Current Visit: Yes Status: Acute Code(s): L97.522 - NON-PRS CHRONIC ULCER OTH PRT LEFT FOOT W FAT LAYER EXPOSED SNOMED Code(s): 69727951702079042 (2) Osteomyelitis Current Visit: Yes Status: Acute Code(s): M86.9 - OSTEOMYELITIS, UNSPECIFIED SNOMED Code(s): 37431275 (3) Diabetic foot ulcer Current Visit: No Status: Acute Code(s): E11.621 - TYPE 2 DIABETES MELLITUS WITH FOOT ULCER; L97.509 - NON-PRESSURE CHRONIC ULCER OTH PRT UNSP FOOT W UNSP SEVERITY SNOMED Code(s): 591077438 Plan: 1patient with a nonhealing wound to the left foot lateral border at the base of the fifth metatarsal the wound has been there for couple of weeks. Now with evidence of significant changes on the x-ray did have elevated white count and elevated inflammatory markers concerning for possible osteomyelitis, local culture currently growing MRSA and Serratia marcescens 2-superficial culture did grew MRSA and Serratia marcescens, repeat culture growing MRSA 3 patient did have placement of the PICC line by vascular surgery on 08/07/2023, 4- patient to continue with cefepime and vancomycin, we will add Flagyl to cover for the anaerobes and monitor clinical course closely Dictation was produced using [employer] dictation software. please excuse any grammatical, word or spelling errors. Time with Patient: Less than 30
[2023-08-10 12:42] VITALS: BMI 28.4
[2023-08-10 13:09] LABS: Glucose,Whole Blood 144 mg/dL (70-110)
[2023-08-10] MEDS: droNABinol 2.5 MG CAP PO SCH (13:57)
[2023-08-10] MEDS: polyethylene glycoL 3350 17 GM POWD.PACK PO SCH (13:57)
[2023-08-10] MEDS: metroNIDAZOLE 500 MG TAB PO SCH (17:18)
[2023-08-10 17:25] LABS: Glucose,Whole Blood 147 mg/dL (70-110)
[2023-08-10] MEDS: LORazepam 1 MG TAB PO SCH (20:43)
[2023-08-10 20:52] LABS: Glucose,Whole Blood 150 mg/dL (70-110)
[2023-08-11 07:10] LABS: Glucose,Whole Blood 152 mg/dL (70-110)
[2023-08-11 11:59] LABS: Glucose,Whole Blood 154 mg/dL (70-110)
--- NOTE | 2023-08-11 12:05 | P.PN ---
Subjective Progress Note Date: 08/11/23 Principal diagnosis: Reason for follow-up is left foot ulcer and concern for osteomyelitis Patient is a 58-year-old male with a past medical history significant for COPD diabetes mellitus hypertension hyperlipidemia osteoarthritis presenting to the ER for evaluation of mental status changes, patient also have a nonhealing wound to the left foot lateral border x-rays were suspicious for osteomyelitis prompting this infectious disease consultation. On today's evaluation that is 08/11/2023, the patient remains to be afebrile, patient is currently breathing comfortably on room air, the patient denies chest pain or cough, patient denies abdominal pain, no nausea no vomiting or any diarrhea. Patient denies pain to the left foot wound. No new labs has been obtained today Objective - Vital Signs Vital signs: Vital Signs Temp 97.6 F 08/11/23 09:40 Pulse 107 H 08/11/23 09:40 Resp 19 08/11/23 09:40 BP 131/73 08/11/23 09:40 Pulse Ox 96 08/11/23 09:40 FiO2 Intake & Output 08/10/23 08/11/23 08/11/23 18:59 06:59 18:59 Intake Total 1480 Output Total 300 600 Balance 1180 -600 Weight 97.8 kg 80 kg Intake: Intake, IV Titration 700 Amount Cefepime 2 gm In Sodium 100 Chloride 0.9% 100 ml @ 25 mls/hr IVPB Q8H P[facility] Rx#: [id number] Sodium Chloride 0.9% 1, 600 000 ml @ 75 mls/hr IV . [id number] PILO Rx#:[id number] Oral 780 Output: Urine 300 600 Other: Voiding Method Toilet Urinal # Voids 3 1 # Bowel Movements 1 - Exam GENERAL DESCRIPTION: Middle-age male lying in bed in no distress RESPIRATORY SYSTEM: Unlabored breathing , decreased breath sounds at bases HEART: S1 S2 regular rate and rhythm , ABDOMEN: Soft , no tenderness EXTREMITIES: Left foot wound currently dressed minimal drainage on the dressing - Labs CBC & Chem 7: 08/06/23 13:26 08/10/23 06:07 Labs: Abnormal Lab Results - Last 24 Hours (Table) 08/10/23 08/10/23 08/10/23 Range/Units 13:03 17:17 20:49 POC Glucose (mg/dL) 144 H 147 H 150 H (70-110) mg/dL 08/11/23 08/11/23 Range/Units 07:09 11:58 POC Glucose (mg/dL) 152 H 154 H (70-110) mg/dL Assessment and Plan (1) Non-pressure chronic ulcer of other part of left foot with fat layer exposed Current Visit: Yes Status: Acute Code(s): L97.522 - NON-PRS CHRONIC ULCER OTH PRT LEFT FOOT W FAT LAYER EXPOSED SNOMED Code(s): 52412766568370682 (2) Osteomyelitis Current Visit: Yes Status: Acute Code(s): M86.9 - OSTEOMYELITIS, UNSPECIFIED SNOMED Code(s): 41211729 (3) Diabetic foot ulcer Current Visit: No Status: Acute Code(s): E11.621 - TYPE 2 DIABETES MELLITUS WITH FOOT ULCER; L97.509 - NON-PRESSURE CHRONIC ULCER OTH PRT UNSP FOOT W UNSP SEVERITY SNOMED Code(s): 496753738 Plan: 1patient with a nonhealing wound to the left foot lateral border at the base of the fifth metatarsal the wound has been there for couple of weeks. Now with evidence of significant changes on the x-ray did have elevated white count and elevated inflammatory markers concerning for possible osteomyelitis, local culture currently growing MRSA and Serratia marcescens as well as anaerobes 2-superficial culture did grew MRSA and Serratia marcescens, repeat culture growing MRSA 3 patient did have placement of the PICC line by vascular surgery on 08/07/2023, 4- patient to continue with cefepime , vancomycin pharmacy to dose and Flagyl, plan is for total of 6-week course of therapy with weekly monitoring of CRP and sed rate and close outpatient follow-up Dictation was produced using [employer] software. please excuse any grammatical, word or spelling errors. Time with Patient: Less than 30
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
[2023-08-11 14:04] VITALS: BP 131/76; PULSE 94; RESP 18; TEMP 97.8
[2023-08-12] MEDS ORDERED: VANCOMYCIN TROUGH DUE 1 EACH MISC MISCELLANE ONE (11:00)
== END 2023-08-11 16:16 | DRG 871 ==
LOC: EC 15:37 → 4SSUR 18:57 → 3SCARD 21:45 → 5NMEDONC 08-06 06:24
PROVIDERS: ADMIT Internal Medicine; ATTEND Internal Medicine
PROC: 02HV33Z Insertion of Infusion Device into Superior Vena Cava, Percutaneous Approach (ICD-10-PCS; principal; 2023-08-07 17:30)
DX: A41.9 Sepsis, unspecified organism (principal); G92.8 Other toxic encephalopathy; M86.172 Other acute osteomyelitis, left ankle and foot; M48.54XA Collapsed vertebra, not elsewhere classified, thoracic region, initial encounter for fracture; M86.9 Osteomyelitis, unspecified; N17.9 Acute kidney failure, unspecified; E11.69 Type 2 diabetes mellitus with other specified complication; Z79.85 Long-term (current) use of injectable non-insulin antidiabetic drugs; Z79.84 Long term (current) use of oral hypoglycemic drugs; E11.42 Type 2 diabetes mellitus with diabetic polyneuropathy; E11.621 Type 2 diabetes mellitus with foot ulcer; F17.200 Nicotine dependence, unspecified, uncomplicated; F31.9 Bipolar disorder, unspecified; G40.909 Epilepsy, unspecified, not intractable, without status epilepticus; I10 Essential (primary) hypertension; I45.10 Unspecified right bundle-branch block; J44.9 Chronic obstructive pulmonary disease, unspecified; E03.9 Hypothyroidism, unspecified; Z98.1 Arthrodesis status; E11.65 Type 2 diabetes mellitus with hyperglycemia; L97.522 Non-pressure chronic ulcer of other part of left foot with fat layer exposed; K21.9 Gastro-esophageal reflux disease without esophagitis; G43.909 Migraine, unspecified, not intractable, without status migrainosus; M19.90 Unspecified osteoarthritis, unspecified site; G47.33 Obstructive sleep apnea (adult) (pediatric); M47.816 Spondylosis without myelopathy or radiculopathy, lumbar region; E78.5 Hyperlipidemia, unspecified; S09.90XD Unspecified injury of head, subsequent encounter; E83.42 Hypomagnesemia; G25.81 Restless legs syndrome; F90.9 Attention-deficit hyperactivity disorder, unspecified type; E87.6 Hypokalemia; R29.6 Repeated falls; W00.0XXD Fall on same level due to ice and snow, subsequent encounter; T25.722 Corrosion of third degree of left foot; M10.9 Gout, unspecified; R74.01 Elevation of levels of liver transaminase levels; T38.3X6A Underdosing of insulin and oral hypoglycemic [antidiabetic] drugs, initial encounter; Z91.128 Patient's intentional underdosing of medication regimen for other reason; Z79.890 Hormone replacement therapy; Z79.899 Other long term (current) drug therapy; Z86.14 Personal history of Methicillin resistant Staphylococcus aureus infection; Z88.8 Allergy status to other drugs, medicaments and biological substances; Z88.6 Allergy status to analgesic agent; Z87.442 Personal history of urinary calculi; Z86.16 Personal history of COVID-19; Z86.010 Personal history of colon polyps
CPT/HCPCS: 36410; 36415; 36580; 70450; 70551; 71046; 72125; 72130; 72133; 72146; 72220; 74018; 76937; 80048; 80053; 80202; 80306; 81001; 82009; 82140; 82550; 82565; 82607; 82746; 82803; 83605; 83735; 84100; 84443; 84484; 85025; 85027; 85610; 85652; 85730; 86140; 87040; 87070; 87075; 87077; 87186; 87205; 93005; 94640; 95816; 96361; 96365; 96366; 96367; 96368; 96372; 96375; 99285

== ENCOUNTER 2023-10-05 16:22 | Emergency (ER) | payer MEDICARE, OTHER ==
[2023-10-05 17:07] VITALS: RESP 18
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
[2023-10-05] MEDS: LORazepam 1 MG TAB PO STA (17:17)
[2023-10-05] MEDS: BUTALB/APAP/CAFF 50-325-40MG TAB PO STA (17:17)
[2023-10-05 17:47] VITALS: BP 136/72; PULSE 76; TEMP 98.1
== END 2023-10-05 17:19 | disposition home or self-care (01) ==
LOC: EC 16:22
DX: R51.9 Headache, unspecified (principal); F17.200 Nicotine dependence, unspecified, uncomplicated; F12.90 Cannabis use, unspecified, uncomplicated; Z88.6 Allergy status to analgesic agent; Z88.8 Allergy status to other drugs, medicaments and biological substances
CPT/HCPCS: 99283; 99406

== ENCOUNTER → 2023-12-16 | Outpatient (CLI) | payer MEDICARE, OTHER ==
--- NOTE | 2023-12-31 15:59 | MR ---
EXAMINATION TYPE: MR foot LT wo/w con DATE OF EXAM: 12/16/2023 COMPARISON: Left foot radiograph 08/03/2023 HISTORY: Open wound, lateral aspect left foot. TECHNIQUE: Multiplanar, multisequence images of the left foot were acquired without and with contrast . FINDINGS: BONES/CARTILAGE/JOINT: Abnormal low T1 and high T2 signal and postcontrast enhancement throughout the midfoot and forefoot; this signal abnormality involves the cuboid, intermediate cuneiform, lateral cuneiform, anterior proc ess of the calcaneus, second-fifth metatarsals. This signal abnormality is most consistent with osteo myelitis. Articular cartilage is normal. No joint effusion. LIGAMENTS: Spring ligament is normal. Lisfranc ligament normal. Normal plantar plates. TENDONS: Flexor tendons are normal. Extensor tendons are normal. The peroneus brevis tendon is not attach to the fifth metatarsal head, may relate to prior tendon tra nsfer and/or tenotomy. SOFT TISSUES: Full-thickness skin ulceration lateral aspect of the forefoot overlying the fifth metatarsal base. Diffuse subcutaneous edema with enhancement of the soft tissue surrounding the skin ulceration. No lo culated fluid collection. Sinus tarsi is normal. Plantar fascia is normal. Neurovascular structures are normal. IMPRESSION: 1. Findings most consistent with osteomyelitis throughout the midfoot and forefoot as above. 2. Lateral full-thickness skin ulceration. Diffuse cellulitis throughout the foot. 3. Posttraumatic and/or postsurgical changes of the peroneus brevis tendon
== END | disposition home or self-care (01) ==
LOC: RADMRIMAIN 17:04
PROVIDERS: ATTEND Surgery Vascular Surgery
DX: M14.672 Charcot's joint, left ankle and foot (principal); M86.8X7 Other osteomyelitis, ankle and foot; E11.621 Type 2 diabetes mellitus with foot ulcer; L97.522 Non-pressure chronic ulcer of other part of left foot with fat layer exposed; T31.10 Burns involving 10-19% of body surface with 0% to 9% third degree burns; M62.472 Contracture of muscle, left ankle and foot; M21.6X2 Other acquired deformities of left foot; M21.372 Foot drop, left foot
CPT/HCPCS: 73720; A9585

== ENCOUNTER → 2023-12-21 | Outpatient (CLI) | payer MEDICARE, OTHER ==
--- NOTE | 2024-01-17 20:24 | MR ---
EXAMINATION TYPE: MR ankle LT wo/w con DATE OF EXAM: 12/21/2023 COMPARISON: Left foot MRI 12/16/2023 HISTORY: Diabetes mellitus with foot ulcer. Wound lateral side of foot Multiplanar, multisequence images of the left foot were acquired without and with contrast. FINDINGS: LIGAMENTS: Anterior talofibular, calcaneofibular, posterior talofibular ligaments are normal. Deltoid ligamentous complex is normal. Tibiofibular syndesmosis is normal. Spring ligament is normal. Lisfranc ligament normal. PERONEAL TENDONS: Peroneus brevis tendon attachment to fifth metatarsal bases not elucidated, may rel ate to prior surgery and/or injury.. FLEXOR TENDONS: Normal. EXTENSOR TENDONS: Normal. ACHILLES TENDON: Normal. BONES/CARTILAGE/JOINT: No significant change to the abnormal bone marrow signal and enhancement pattern throughout the foot, involving the cuboid and lateral cuneiform and fifth metatarsal most prominently. Signal abnormality also persists in the anterior process of the calcaneus, mildly within the navicular, within the inte rmediate cuneiform, second metatarsal base, third metatarsal base, fourth metatarsal proximal half, a nd the entirety of the fifth metatarsal. Please note, the digits are not included on [id number]. New/increasing size of heterogenous fluid collection originating at the base of the fifth metatarsal extending distally along the shaft, may represent abscess/subperiosteal abscess. SOFT TISSUES: Redemonstration of full-thickness skin ulceration lateral aspect overlying the fifth metatarsal base. Diffuse subcutaneous edema with postcontrast enhancement surrounding the skin ulceration. Sinus tarsi is normal. Plantar fascia is normal. Neurovascular structures are normal. IMPRESSION: 1. Signal abnormality most consistent with osteomyelitis diffusely throughout the midfoot and forefoo t, grossly similar to prior exam. 2. Lateral full-thickness skin ulceration and surrounding cellulitis. 3. Heterogenous fluid collection at the base of the fifth metatarsal extending distally along the sha ft which may represent an abscess/subperiosteal abscess.
== END | disposition home or self-care (01) ==
LOC: RADMRIMAIN 19:30
PROVIDERS: ATTEND Surgery Vascular Surgery
DX: M14.672 Charcot's joint, left ankle and foot (principal); M86.8X7 Other osteomyelitis, ankle and foot; E11.621 Type 2 diabetes mellitus with foot ulcer; L97.522 Non-pressure chronic ulcer of other part of left foot with fat layer exposed; T31.10 Burns involving 10-19% of body surface with 0% to 9% third degree burns; M62.472 Contracture of muscle, left ankle and foot; M21.6X2 Other acquired deformities of left foot; M21.372 Foot drop, left foot
CPT/HCPCS: 73723; A9585

== ENCOUNTER → 2024-01-26 | Day surgery (SDC) | payer MEDICARE, OTHER ==
[2024-01-26 16:42] VITALS: BP 115/69; PULSE 98; RESP 16; TEMP 98
== END ==
LOC: CATHCVL 13:37
PROVIDERS: ATTEND Internal Medicine Infectious Disease
DX: M86.679 Other chronic osteomyelitis, unspecified ankle and foot (principal)
CPT/HCPCS: 36573; C1751

== ENCOUNTER 2024-02-09 13:23 | Day surgery (SDC) | payer MEDICARE, OTHER | END 2024-02-09 15:02 | disposition home or self-care (01) | LOC: CATHCVL 13:23 | PROVIDERS: ATTEND Internal Medicine Infectious Disease | DX: R41.82 Altered mental status, unspecified (principal); J44.9 Chronic obstructive pulmonary disease, unspecified; E78.5 Hyperlipidemia, unspecified; E11.9 Type 2 diabetes mellitus without complications; M19.90 Unspecified osteoarthritis, unspecified site; I10 Essential (primary) hypertension; F17.200 Nicotine dependence, unspecified, uncomplicated; Z86.14 Personal history of Methicillin resistant Staphylococcus aureus infection | CPT/HCPCS: 36573; 82565; 84520 ==

== ENCOUNTER → 2024-02-16 | Outpatient (CLI) | payer MEDICARE, OTHER | LOC: LABPRL 15:40 | PROVIDERS: ATTEND Internal Medicine Infectious Disease | DX: E11.621 Type 2 diabetes mellitus with foot ulcer (principal) | CPT/HCPCS: 85652 ==

== ENCOUNTER 2024-04-19 19:47 | Emergency (ER) | payer MEDICARE, OTHER ==
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
[2024-04-19 19:57] VITALS: RESP 20
[2024-04-19] MEDS: LIDOCAINE 4% PATCH TOPICAL ONE (20:20)
--- NOTE | 2024-04-19 20:21 | XR ---
EXAMINATION TYPE: XR lumbar spine 2 or 3V DATE OF EXAM: 04/19/2024 8:16 PM CLINICAL INDICATION:Male, 58 years old with history of lumbar pain, injury; [facility] COMPARISON: Plain film abdomen 08/10/2023 TECHNIQUE: Frontal, lateral and coned in L5-S1 lateral views of the spine. FINDINGS: No evidence of any acute osseous pathology. Redemonstrated remote compression deformity of L4 with approximately 25% height loss, similar L5 compression with just under 25% height loss. There is normal alignment of the lumbar vertebral bodies. Mild scattered disc space narrowing. Multilevel m arginal osteophyte formation throughout the visualized spine. There is facet joint arthropathy throug hout the spine. IMPRESSION: 1. No acute fracture. 2. Stable remote compression fracture of L4 and L5 with approximately 25% height loss. 3. Multilevel degenerative changes of the lumbar spine. [facility], , 04/19/2024 8:19 PM
[2024-04-19 21:10] VITALS: BP 121/76; PULSE 98; TEMP 97.9
== END 2024-04-19 21:09 | disposition home or self-care (01) ==
LOC: EC 19:47
CPT/HCPCS: 72100; 99283

== ENCOUNTER 2024-05-10 19:13 | Emergency (ER) | payer MEDICARE, OTHER ==
[2024-05-10 19:23] VITALS: RESP 18; TEMP 98.3
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
--- NOTE | 2024-05-10 21:06 | CT ---
EXAMINATION TYPE: CT lumbar spine wo con DATE OF EXAM: 05/10/2024 COMPARISON: X-ray lumbar spine 04/19/2024, CT lumbar spine 08/04/2023 HISTORY: lower back pain that radiates down his right hip into his groin, from lifting a heavy tote x 2weeks ago CT DLP: 1244 mGycm CONTRAST: None TECHNIQUE: CT of the lumbar spine is performed on a spiral scan at 3 mm thick sections. Reconstructed images are performed in the coronal and sagittal planes. FINDINGS: T12-L1: No focal disc herniation or significant disc bulge is evident. No spinal canal stenosis or neural foraminal stenosis is present. L1-L2: No focal disc herniation or significant disc bulge is evident. No spinal canal stenosis or n eural foraminal stenosis is present L2-L3: There is loss of disc height this level. 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 L3-L4: No focal disc herniation or significant disc bulge is evident. No spinal canal stenosis or n eural foraminal stenosis is present. L4: There is a superior mid endplate change. This can be an acute osseous abnormality. This is an int erval change from 08/04/2023. No posterior wall displacement is evident. L4-L5: Broad-based disc bulge is moderate anterior thecal sac compression. Some ligamentum flavum lax ity is present. Some spinal canal narrowing without stenosis may be present. Findings appear similar to comparison L5-S1: No focal disc herniation or significant disc bulge is evident. No spinal canal stenosis or n eural foraminal stenosis is present Vertebral alignment appears normal. IMPRESSION: Superior endplate compression deformity of the 4 without posterior wall displacement. This is an inte rval finding from July 2023 but may be present in April 2024. Correlate with location of the pat ient's pain. 2. Some mild spinal canal narrowing due to disc bulging and ligamentum flavum laxity, stable from [facility] of July 2023 at the L4-5 level. [facility], Workstation: [facility], 05/10/2024 9:03 PM
[2024-05-10] MEDS: traMADol 50 MG TAB PO STA (21:33)
[2024-05-10] MEDS: dexAMETHasone 2 MG TAB PO STA (21:33)
[2024-05-10] MEDS: HYDROmorphone 1 MG/ML 1 ML SYRINGE IM STA (21:35)
[2024-05-10] MEDS: traMADol 50 MG STARTER PACK 3 TAB BTL PO STA (21:35)
[2024-05-10 21:48] VITALS: BP 118/73; PULSE 88
== END 2024-05-10 21:47 | disposition home or self-care (01) ==
LOC: EC 19:13
DX: G89.29 Other chronic pain (principal); M54.50 Low back pain, unspecified; F17.200 Nicotine dependence, unspecified, uncomplicated; Z88.6 Allergy status to analgesic agent; Z88.8 Allergy status to other drugs, medicaments and biological substances; Z86.16 Personal history of COVID-19; X50.0XXA Overexertion from strenuous movement or load, initial encounter
CPT/HCPCS: 72131; 99283; 96372; J1171; J8540

== ENCOUNTER 2024-05-24 02:15 | Emergency (ER) | payer MEDICARE, OTHER ==
[2024-05-24] MEDS: LIDOCAINE 4% PATCH TOPICAL ONE (03:04)
[2024-05-24 03:31] LABS: Amorphous Sediment,Urine Rare /hpf; Appearance,Urine Clear (Clear); Bilirubin,Urine Negative (Negative); Blood,Urine Negative (Negative); Color,Urine Yellow; Glucose,Urine (UA) Trace (Negative); Hyaline Casts,Urine 14 /lpf (0-2); Ketones,Urine Negative (Negative); Leukocyte Esterase,Urine Negative (Negative); Mucus,Urine Occasional /hpf; Nitrite,Urine Negative (Negative); PH, Urine 5.5 (5.0-8.0); Protein,Urine 1+ (Negative); Specific Gravity,Urine 1.031 (1.001-1.035); Squamous Epithelial Cell,Urine <1 /hpf (0-4); WBC,Urine 1 /hpf (0-5)
[2024-05-24 03:38] LABS: ALT 17 U/L (4-49); AST 16 U/L (17-59); African American GFR (CKD) 72 (>60 ml/min/1.73 sqM); Albumin 4.5 g/dL (3.5-5.0); Alkaline Phosphatase 154 U/L (38-126); Amylase <30 U/L (30-110); Anion Gap 7 mmol/L; Blood Urea Nitrogen 20 mg/dL (9-20); Calcium 9.3 mg/dL (8.4-10.2); Carbon Dioxide 28 mmol/L (22-30); Chloride 105 mmol/L (98-107); Glucose 187 mg/dL (74-99); Lipase 46 U/L (23-300); Non-African American GFR(CKD) 62 (>60 ml/min/1.73 sqM); Sodium 140 mmol/L (137-145); Total Bilirubin 0.4 mg/dL (0.2-1.3); Total Protein 7.2 g/dL (6.3-8.2)
[2024-05-24 03:44] LABS: Basophils % (A) 1 %; Eosinophils # (A) 0.1 k/uL (0-0.7); Eosinophils % (A) 1 %; HCT 43.8 % (39.0-53.0); HGB 15.3 gm/dL (13.0-17.5); Lymphocytes % (A) 35 %; MCH 30.6 pg (25.0-35.0); MCHC 34.8 g/dL (31.0-37.0); MCV 87.9 fL (80.0-100.0); Monocytes # (A) 0.3 k/uL (0-1.0); Monocytes % (A) 6 %; Neutrophils # (A) 3.1 k/uL (1.3-7.7); Neutrophils % (A) 55 %; Platelet Count 136 k/uL (150-450); RBC 4.98 m/uL (4.30-5.90); RDW 14.3 % (11.5-15.5); WBC 5.7 k/uL (3.8-10.6)
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
--- NOTE | 2024-05-24 05:17 | CT ---
EXAM: CT Abdomen and Pelvis Without Intravenous Contrast CLINICAL HISTORY: ITS.REASON CT Reason: abdominal pain TECHNIQUE: Axial computed tomography images of the abdomen and pelvis without intravenous contrast. CTDI is 11.5 mGy and DLP is 776.7 mGy-cm. This CT exam was performed using one or more of the following dose reduction techniques: automated exposure control, adjustment of the mA and/or kV according to patient size, and/or use of iterative reconstruction technique. COMPARISON: CT Abdomen Pelvis dated 07/04/2019 FINDINGS: Lung bases: Unremarkable. No mass. No consolidation. Heart: Small pericardial effusion or thickening. ABDOMEN: Liver: Mild hepatomegaly. Gallbladder and bile ducts: Cholecystectomy. No ductal dilation. Pancreas: Unremarkable. No ductal dilation. Spleen: Mild splenomegaly. Adrenals: Unremarkable. No mass. Kidneys and ureters: Mild nonspecific perinephric stranding. No hydronephrosis. Non-obstructing punctate right renal calculus. Stomach and bowel: Mottled fecal material throughout the distal colon. No obstruction. No mucosal thickening. PELVIS: Appendix: Appendix containing high-density material otherwise appears normal. Located in the mid pelvis. Bladder: Unremarkable. No stones. Reproductive: Unremarkable as visualized. ABDOMEN and PELVIS: Intraperitoneal space: Unremarkable. No free air. No significant fluid collection. Bones/joints: L4 superior endplate fracture. Approximately 50% central vertebral body height loss. New since the prior. Mild surrounding fat stranding. May represent recent fracture. 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 No dislocation. Soft tissues: Unremarkable. Vasculature: Unremarkable. No abdominal aortic aneurysm. Lymph nodes: Unremarkable. No enlarged lymph nodes. IMPRESSION: 1. L4 superior endplate fracture. Approximately 50% central vertebral body height loss. New since the prior. Mild surrounding fat stranding. May represent recent fracture. 2. Mild hepatosplenomegaly. 3. Non-obstructing punctate right renal calculus.
[2024-05-24 05:47] VITALS: BP 127/74; PULSE 76; RESP 17; TEMP 97.5
== END 2024-05-24 05:50 | disposition home or self-care (01) ==
LOC: EC 02:15
DX: R10.31 Right lower quadrant pain (principal); F17.200 Nicotine dependence, unspecified, uncomplicated; Z88.8 Allergy status to other drugs, medicaments and biological substances; Z88.6 Allergy status to analgesic agent
CPT/HCPCS: 36415; 74176; 80053; 81001; 82150; 83605; 83690; 85025; 99284

== ENCOUNTER 2024-07-14 08:17 | Emergency (ER) | payer MEDICARE, OTHER ==
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
[2024-07-14] MEDS: IPRATROPIUM-ALBUTEROL 3 ML NEB INHALATION STA (08:41)
[2024-07-14 08:54] LABS: Basophils # (A) 0.1 k/uL (0-0.2); Basophils % (A) 1 %; Eosinophils # (A) 0.1 k/uL (0-0.7); Eosinophils % (A) 1 %; HCT 48.8 % (39.0-53.0); HGB 17.4 gm/dL (13.0-17.5); Lymphocytes # (A) 1.5 k/uL (1.0-4.8); Lymphocytes % (A) 19 %; MCH 31.4 pg (25.0-35.0); MCHC 35.6 g/dL (31.0-37.0); MCV 88.3 fL (80.0-100.0); Mean Platelet Volume 7.6; Monocytes # (A) 0.5 k/uL (0-1.0); Monocytes % (A) 6 %; Neutrophils # (A) 5.7 k/uL (1.3-7.7); Neutrophils % (A) 71 %; Platelet Count 179 k/uL (150-450); RBC 5.53 m/uL (4.30-5.90); RDW 13.8 % (11.5-15.5)
[2024-07-14 08:58] VITALS: TEMP 97
[2024-07-14] MEDS: SODIUM CHLORIDE 0.9% 1,000 ML IV STA (09:04)
[2024-07-14] MEDS: ONDANSETRON 4 MG/2 ML VIAL IVP STA (09:04)
[2024-07-14 09:06] LABS: ALT 15 U/L (4-49); African American GFR (CKD) 75 (>60 ml/min/1.73 sqM); Anion Gap 19 mmol/L; Blood Urea Nitrogen 24 mg/dL (9-20); Calcium 10.2 mg/dL (8.4-10.2); Carbon Dioxide 17 mmol/L (22-30); Chloride 104 mmol/L (98-107); Glucose 206 mg/dL (74-99); Lipase 178 U/L (23-300); Non-African American GFR(CKD) 65 (>60 ml/min/1.73 sqM); Sodium 140 mmol/L (137-145); Total Bilirubin 1.2 mg/dL (0.2-1.3)
[2024-07-14 09:07] LABS: Partial Thromboplastin Time 23.6 sec (22.0-30.0); Prothrombin Time 11.1 sec (10.0-12.5)
[2024-07-14 09:14] LABS: NT-Pro-B-Type Natriuretic Pept 51 pg/mL
[2024-07-14 09:19] LABS: Magnesium 1.5 mg/dL (1.6-2.3); Potassium 4.7 mmol/L (3.5-5.1)
[2024-07-14 09:20] LABS: AST 28 U/L (17-59); Albumin 5.2 g/dL (3.5-5.0); Alkaline Phosphatase 155 U/L (38-126); Total Protein 8.6 g/dL (6.3-8.2)
[2024-07-14] MEDS: SODIUM CHLORIDE 0.9% 1,000 ML IV ONE (09:52)
[2024-07-14] MEDS: MAGNESIUM OXIDE 400 MG TAB PO STA (09:52)
[2024-07-14] MEDS: HYDROmorphone 1 MG/ML 1 ML SYRINGE IVP STA (09:52)
[2024-07-14] MEDS: SODIUM CHLORIDE 0.9% 500 ML 500 ML IV STA (09:53)
[2024-07-14] MEDS: MAGNESIUM SULFATE-D5W PMX 1 GM in DEXTROSE/WATER 1 100ML.BAG IVPB ONE (09:55)
--- NOTE | 2024-07-14 10:05 | CT ---
EXAMINATION TYPE: CT brain wo con DATE OF EXAM: 07/14/2024 9:37 AM COMPARISON: 08/03/2023 CLINICAL INDICATION: Male, 59 years old with confusion, history of Altered mental status, AMS, TECHNIQUE: Examination was done in axial plane without intravenous contrast. Coronal and sagittal r econstructions performed. CT DLP: 1213.4 mGycm, Automated exposure control for dose reduction was used. FINDINGS: There is no evidence of acute intracranial hemorrhage, acute ischemic changes, mass, mass-effect, or extra-axial fluid collection. There is no effacement of cerebral sulci or basal subarachnoid cister ns. There is no midline shift. Baeza-white matter distinction is preserved. There is mild volume loss overlying the bilateral cerebral convexities. Mild prominence to the ventri cular system is similar. A couple small polyps or mucosal retention cyst right maxillary sinus measuring up to 7 mm. Rightward nasal septal deviation. Orbits and globes are intact. Right mastoid air cells hypoplastic. IMPRESSION: Similar mild to moderate cerebral atrophy. No acute intracranial abnormality seen. [facility], , 07/14/2024 10:03 AM
--- NOTE | 2024-07-14 10:06 | XR ---
EXAMINATION TYPE: XR chest 2V DATE OF EXAM: 07/14/2024 9:35 AM COMPARISON: 08/03/2023 CLINICAL INDICATION: Male, 59 years old with history of shortness of breath, difficulty breathing, , TECHNIQUE: AP and lateral views FINDINGS: Hazy lung densities relating to AP technique and body habitus. Heart normal size. Mild interstitial d ensities remain. No driss consolidation or pleural effusion. IMPRESSION: Mild interstitial densities which could reflect bronchitis or asthma. No focal infiltrate seen. [facility], , 07/14/2024 10:04 AM
--- NOTE | 2024-07-14 10:07 | XR ---
EXAMINATION TYPE: XR Hip Complete 2 views RT DATE OF EXAM: 07/14/2024 9:35 AM COMPARISON: None CLINICAL INDICATION: Male, 59 years old with history of pain, , FINDINGS: Hip joint space is maintained. No acute fracture, subluxation, or dislocation. Right SI joint and pub ic symphysis appear intact. Incidental dropped surgical clip in the pelvis. IMPRESSION: No acute osseous abnormality seen. [facility], Workstation: [facility], 07/14/2024 10:05 AM
[2024-07-14 10:42] VITALS: RESP 18
[2024-07-14 10:48] LABS: VBG PH 7.54 (7.31-7.41)
[2024-07-14] MEDS: methylPREDNISolone SOD SUCCI 125 MG/2 ML VIAL IV STA (11:19)
[2024-07-14 12:31] VITALS: BP 136/89; PULSE 82
== END 2024-07-14 12:30 | disposition home or self-care (01) ==
LOC: EC 08:17
DX: J44.1 Chronic obstructive pulmonary disease with (acute) exacerbation (principal); R11.2 Nausea with vomiting, unspecified; E11.9 Type 2 diabetes mellitus without complications; I10 Essential (primary) hypertension; E78.5 Hyperlipidemia, unspecified; J45.909 Unspecified asthma, uncomplicated; F17.200 Nicotine dependence, unspecified, uncomplicated; Z88.6 Allergy status to analgesic agent; Z88.8 Allergy status to other drugs, medicaments and biological substances
CPT/HCPCS: 94640; 85379; 83880; 80053; 82803; 82009; 83605; 83690; 83735; 84484; 85025; 85610; 85730; 87636; 73502; 71046; 70450; 99285; 96365; 96375 ×3; 96361 ×2; 99406; J2405; J1171; J3475; J2919; 36415

== ENCOUNTER 2024-09-08 18:11 | Emergency (ER) | payer MEDICARE, OTHER ==
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
--- NOTE | 2024-09-08 18:32 | XR ---
EXAMINATION TYPE: XR chest 1V portable DATE OF EXAM: 09/08/2024 6:27 PM COMPARISON: 07/14/2024 CLINICAL INDICATION: Male, 59 years old with history of fall injury, TECHNIQUE: XR chest 1V portable views of the chest are obtained. FINDINGS: Demonstrated are scattered senescent parenchymal change. There is no evidence for focal infiltrate. The heart is stable. Hilar and mediastinal structures are within normal limits. Degenerative changes are seen of the dorsal spine. IMPRESSION: 1. Chronic changes without evidence for acute pulmonary disease. [facility], , 09/08/2024 6:30 PM
[2024-09-08 18:45] LABS: Glucose,Whole Blood 370 mg/dL (70-110)
[2024-09-08 18:47] LABS: INR 0.9 (<1.2); Partial Thromboplastin Time 23.2 sec (22.0-30.0); Prothrombin Time 10.3 sec (10.0-12.5)
--- NOTE | 2024-09-08 18:49 | CT ---
EXAMINATION TYPE: CT brain cspine wo con DATE OF EXAM: 09/08/2024 COMPARISON: 07/14/2024 CLINICAL INDICATION: Male, 59 years old with history of fall injury; [facility], Priority 2 trauma. Fell hernando n 13 steps, hit back of head. TECHNIQUE: CT scan of the head and cervical spine are performed without contrast. CT DLP: 1504.[address] CTDI: mGy Automated exposure control for dose reduction was used. FINDINGS: There is no acute intracranial hemorrhage, mass effect, or midline shift identified. The ventricles and sulci are within normal limits in size. The globes are intact and the visualized sinuses are cori ar. Cervical spine is visualized in its entirety from C1 through upper thoracic levels and demonstrates s atisfactory alignment without evidence of acute fracture or dislocation. ACDF changes noted at C4-5 with normal postoperative alignment. Prevertebral soft tissue appears within normal limits. The C1-C 2 articulation is unremarkable. IMPRESSION: There is no acute fracture or dislocation evident in the cervical spine. 2. No acute intracranial hemorrhage, mass effect, or midline shift is seen. [facility], , 09/08/2024 6:46 PM
[2024-09-08 18:55] LABS: ALT 15 U/L (4-49); AST 15 U/L (17-59); African American GFR (CKD) >90 (>60 ml/min/1.73 sqM); Alcohol <10 mg/dL; Alkaline Phosphatase 122 U/L (38-126); Anion Gap 11 mmol/L; Basophils % (A) 1 %; Blood Urea Nitrogen 26 mg/dL (9-20); Calcium 8.7 mg/dL (8.4-10.2); Carbon Dioxide 23 mmol/L (22-30); Chloride 101 mmol/L (98-107); Eosinophils # (A) 0.1 k/uL (0-0.7); Eosinophils % (A) 2 %; Glucose 325 mg/dL (74-99); Lymphocytes # (A) 1.6 k/uL (1.0-4.8); Lymphocytes % (A) 26 %; MCHC 33.2 g/dL (31.0-37.0); Mean Platelet Volume 7.4; Monocytes # (A) 0.3 k/uL (0-1.0); Monocytes % (A) 4 %; Neutrophils # (A) 3.9 k/uL (1.3-7.7); Neutrophils % (A) 65 %; Non-African American GFR(CKD) 83 (>60 ml/min/1.73 sqM); Platelet Count 154 k/uL (150-450); Potassium 4.8 mmol/L (3.5-5.1); RBC 4.48 m/uL (4.30-5.90); RDW 14.1 % (11.5-15.5); Sodium 135 mmol/L (137-145); Total Bilirubin 0.5 mg/dL (0.2-1.3); Total Protein 6.6 g/dL (6.3-8.2); WBC 5.9 k/uL (3.8-10.6)
[2024-09-08 19:00] LABS: HGB 13.9 gm/dL (13.0-17.5); MCV 93.6 fL (80.0-100.0)
--- NOTE | 2024-09-08 19:18 | XR ---
EXAMINATION TYPE: XR thoracic spine complete DATE OF EXAM: 09/08/2024 7:02 PM COMPARISON: None. CLINICAL INDICATION: Male, 59 years old with history of fall injury, pain t8-10, TECHNIQUE: Frontal, lateral, and swimmer's view of thoracic spine are obtained. FINDINGS: Thoracic spine show satisfactory alignment. There is moderate loss of height involving the approximate T9 vertebral segment which is of uncertain age and/or etiology. T10 and T11 may also demo nstrate a degree of loss of height. Disc spaces are well preserved. Visualized ribs are unremarkabl e. IMPRESSION: Loss of height involving T9. There may be loss of height of T10 and T11 as well. Fracture s are of uncertain age and/or etiology. [facility], , 09/08/2024 7:16 PM
[2024-09-08] MEDS: HYDROcodone/APAP 5-325MG 1 EACH TAB PO STA (19:22)
[2024-09-08] MEDS: INSULIN REGULAR 100 UNIT/ML VIAL (IV) SQ STA (19:24)
[2024-09-08] MEDS: MORPHINE SULFATE 4 MG/ML SYRINGE IV STA (20:08)
[2024-09-08 20:39] VITALS: BP 124/68; PULSE 92; RESP 18; TEMP 97.5
== END 2024-09-08 20:20 | disposition home or self-care (01) ==
LOC: EC 18:11
DX: S22.000A Wedge compression fracture of unspecified thoracic vertebra, initial encounter for closed fracture (principal); I45.10 Unspecified right bundle-branch block; F17.200 Nicotine dependence, unspecified, uncomplicated; Z88.6 Allergy status to analgesic agent; Z88.8 Allergy status to other drugs, medicaments and biological substances; W10.8XXA Fall (on) (from) other stairs and steps, initial encounter
CPT/HCPCS: 99285; 96374; 36415; 93005; 80053; 83605; 84484; 85025; 85610; 85730; 72072; 71045; 72125; 70450; G0390; G0480; J2270; 80320

== ENCOUNTER 2024-09-21 05:09 | Inpatient (IN) | payer MEDICARE, OTHER ==
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
[2024-09-21 06:13] LABS: ALT 31 U/L (4-49); AST 40 U/L (17-59); African American GFR (CKD) 79 (>60 ml/min/1.73 sqM); Albumin 3.9 g/dL (3.5-5.0); Alkaline Phosphatase 140 U/L (38-126); Anion Gap 9 mmol/L; Blood Urea Nitrogen 27 mg/dL (9-20); Calcium 8.5 mg/dL (8.4-10.2); Carbon Dioxide 27 mmol/L (22-30); Chloride 101 mmol/L (98-107); Glucose 195 mg/dL (74-99); Non-African American GFR(CKD) 68 (>60 ml/min/1.73 sqM); Potassium 4.1 mmol/L (3.5-5.1); Sodium 137 mmol/L (137-145); Total Bilirubin 0.5 mg/dL (0.2-1.3); Total Protein 6.4 g/dL (6.3-8.2)
[2024-09-21 06:14] LABS: Partial Thromboplastin Time 27.2 sec (22.0-30.0); Prothrombin Time 10.8 sec (10.0-12.5)
[2024-09-21 06:19] LABS: HCT 37.9 % (39.0-53.0); HGB 12.8 gm/dL (13.0-17.5); MCHC 33.8 g/dL (31.0-37.0); MCV 88.8 fL (80.0-100.0); Mean Platelet Volume 7.4; Platelet Count 108 k/uL (150-450); RBC 4.27 m/uL (4.30-5.90); RDW 13.9 % (11.5-15.5); WBC 3.5 k/uL (3.8-10.6)
[2024-09-21 06:21] LABS: NT-Pro-B-Type Natriuretic Pept 105 pg/mL
[2024-09-21] MEDS: IPRATROPIUM-ALBUTEROL 3 ML NEB INHALATION STA (06:29)
[2024-09-21 06:37] LABS: Influenza A Detected (Not Detectd); Influenza B Not Detected (Not Detectd); RSV Not Detected (Not Detectd)
[2024-09-21] MEDS: SODIUM CHLORIDE 0.9% 500 ML 500 ML IV STA ×2 (06:49→08:59)
[2024-09-21] MEDS ORDERED: NALOXONE 0.4 MG/ML 1 ML VIAL IVP PRN (07:03)
[2024-09-21] MEDS ORDERED: IPRATROPIUM-ALBUTEROL 3 ML NEB INHALATION PRN (07:03)
[2024-09-21] MEDS ORDERED: ONDANSETRON ODT 4 MG TAB PO PRN (07:05)
[2024-09-21] MEDS ORDERED: oxyCODONE-APAP 5-325MG 1 EACH TAB PO PRN (07:05)
--- NOTE | 2024-09-21 07:25 | XR ---
EXAMINATION TYPE: XR chest 2V DATE OF EXAM: 09/21/2024 6:13 AM COMPARISON: Chest radiographs from 09/08/2024. CLINICAL INDICATION: Male, 59 years old with history of difficulty breathing; [facility] TECHNIQUE: XR chest 2V Frontal and lateral views of the chest. FINDINGS: Lungs/Pleura: There is no evidence of pleural effusion, focal consolidation, or pneumothorax. Pulmonary vascularity: Unremarkable. Heart/mediastinum: Cardiomediastinal silhouette is unremarkable. Musculoskeletal: No acute osseous pathology. Other findings: No IMPRESSION: No acute cardiopulmonary disease/process [facility] Milena Haas, , 09/21/2024 7:23 AM
[2024-09-21 07:29] LABS: Glucose,Whole Blood 200 mg/dL (70-110)
[2024-09-21] MEDS ORDERED: DEXTROSE 50% SYRINGE 50 ML IVP PRN ×2 (07:49)
[2024-09-21 07:54] LABS: Eosinophils # (M) 0.14 k/uL (0-0.7); Lymphocytes # (M) 1.26 k/uL (1.0-4.8); Monocytes # (M) 0.39 k/uL (0-1.0); Neutrophils # (M) 1.72 k/uL (1.3-7.7); Neutrophils % (M) 49 %; Nucleated Red Blood Cells 0 /100 WBC (0-0); Total Cells Counted 100
[2024-09-21 07:55] LABS: Anisocytosis (M) Present
[2024-09-21] MEDS: LORazepam 1 MG TAB PO SCH (08:46)
[2024-09-21] MEDS: SODIUM CHLORIDE 0.9% 1,000 ML IV STA (08:48)
[2024-09-21] MEDS: IPRATROPIUM-ALBUTEROL 3 ML NEB INHALATION SCH (08:55)
[2024-09-21] MEDS ORDERED: predniSONE 20 MG TAB PO SCH (09:00)
[2024-09-21] MEDS: NICOTINE 14MG/24HR PATCH TRANSDERM SCH (10:31)
[2024-09-21] MEDS: OSELTAMIVIR 75 MG CAP PO SCH (10:40)
[2024-09-21] MEDS: PREGABALIN 100 MG CAP PO SCH (10:40)
[2024-09-21] MEDS: ATORVASTATIN 20 MG TAB PO SCH (10:40)
[2024-09-21] MEDS: ENOXAPARIN 40 MG/0.4 ML SYRINGE SQ SCH (10:41)
[2024-09-21] MEDS: DULoxetine HCL 60 MG CAPSULE.DR PO SCH (10:41)
[2024-09-21] MEDS: LEVOTHYROXINE 75 MCG TAB PO SCH (10:41)
[2024-09-21] MEDS: FAMOTIDINE 20 MG TAB PO SCH (10:41)
[2024-09-21] MEDS ORDERED: oxyCODONE-APAP 10-325MG 1 EACH TAB PO PRN (10:45)
[2024-09-21] MEDS: NON FORMULARY DRUG (Semaglutide [Ozempic] 2 MG/0.75 ML Pen.Injctr) SQ SCH (10:46)
[2024-09-21] MEDS: LOSARTAN 25 MG TAB PO SCH (10:47)
[2024-09-21] MEDS: AZITHROMYCIN 500 MG TAB PO SCH (10:47)
[2024-09-21] MEDS: predniSONE 50 MG TAB PO SCH (10:47)
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
[2024-09-21 13:21] LABS: Glucose,Whole Blood 154 mg/dL (70-110)
[2024-09-21] MEDS: COLLAGENASE 250 UNIT/GM OINTMENT 30 GM TUBE TOPICAL SCH (13:23)
[2024-09-21] MEDS: OXcarbazepine 150 MG TAB PO SCH (13:23)
[2024-09-21] MEDS: INSULIN LISPRO (HumaLOG) 100 UNIT/ML 10 mL VL SQ SCH (13:23)
[2024-09-21 15:42] VITALS: RESP 18
[2024-09-21 16:26] LABS: Glucose,Whole Blood 166 mg/dL (70-110)
[2024-09-21] MEDS: predniSONE 20 MG TAB PO SCH (17:01)
[2024-09-21 20:29] LABS: Glucose,Whole Blood 172 mg/dL (70-110)
[2024-09-21] MEDS: INSULIN GLARGINE (LANTUS) 100 UNIT/ML SYR SQ SCH (20:50)
[2024-09-21] MEDS: QUEtiapine 400 MG TAB PO SCH (20:51)
[2024-09-21] MEDS: PANTOPRAZOLE 40 MG TABLET PO SCH (20:53)
[2024-09-21] MEDS ORDERED: OXcarbazepine 300 MG TAB PO SCH (21:00)
[2024-09-21] MEDS ORDERED: MIRTAZAPINE 15 MG TAB PO SCH (21:00)
[2024-09-22] MEDS: LOPERAMIDE 2 MG CAP PO PRN (01:23)
[2024-09-22 06:14] LABS: Glucose,Whole Blood 195 mg/dL (70-110)
[2024-09-22 06:32] LABS: African American GFR (CKD) 89 (>60 ml/min/1.73 sqM); Anion Gap 9 mmol/L; Blood Urea Nitrogen 25 mg/dL (9-20); Calcium 8.5 mg/dL (8.4-10.2); Carbon Dioxide 26 mmol/L (22-30); Chloride 104 mmol/L (98-107); Glucose 187 mg/dL (74-99); Non-African American GFR(CKD) 77 (>60 ml/min/1.73 sqM); Sodium 139 mmol/L (137-145)
[2024-09-22 06:54] LABS: HCT 37.1 % (39.0-53.0); HGB 12.1 gm/dL (13.0-17.5); MCHC 32.5 g/dL (31.0-37.0); MCV 92.3 fL (80.0-100.0); Mean Platelet Volume 8.4; Platelet Count 103 k/uL (150-450); RBC 4.02 m/uL (4.30-5.90); RDW 14.3 % (11.5-15.5); WBC 1.8 k/uL (3.8-10.6)
[2024-09-22] MEDS: INSULIN LISPRO (HumaLOG) 100 UNIT/ML 10 mL VL SQ SCH (08:10)
[2024-09-22 08:50] LABS: Lymphocytes # (M) 0.68 k/uL (1.0-4.8); Neutrophils # (M) 1.12 k/uL (1.3-7.7); Neutrophils % (M) 62 %; Nucleated Red Blood Cells 0 /100 WBC (0-0); Total Cells Counted 100
[2024-09-22 10:57] VITALS: BP 112/75; TEMP 97.5
[2024-09-22 12:02] LABS: Glucose,Whole Blood 197 mg/dL (70-110)
[2024-09-22 13:16] VITALS: PULSE 96
--- NOTE | 2024-09-22 15:31 | P.DS ---
Providers Date of admission: 09/21/24 07:24 Expected date of discharge: 09/22/24 Attending physician: Augustine Solis MD [facility]: Hospital Course: Patient is a 59-year-old male with asthma, COPD (on home oxygen unrecalled L used), diabetes, GERD, hyperlipidemia, hypertension, osteoarthritis, sleep apnea, bipolar disorder, depression, hypothyroidism, MRSA history (from wound) here for evaluation of shortness of breath. On admission: Vitals: Temperature 99.9 F, pulse rate 104, respiratory rate 20, blood pressure 111/68, O2 saturation 94% on 4 L nasal cannula Labs: WBC 3.5, hemoglobin 12.8, platelet count 108,000, sodium 137, potassium 4.1, chloride 101, bicarb 27, BUN 27, creatinine 1.17, glucose 195, calcium 8.5. Troponin negative. proBNP 105. Liver enzymes showed elevated alk phos at 140. Cepheid 4 Plex positive for influenza A. Imaging: EKG showed sinus tachycardia with a rate of 103, normal MI interval, left axis deviation, and significant ST-T changes, good R wave progression, QTc 382 MS. Chest x-ray showed no acute cardiopulmonary disease/process. Patient was admitted for evaluation of acute hypoxic respiratory failure secondary to acute COPD exacerbation with influenza pneumonia that developed sepsis. Patient was given IV antibiotics, DuoNebs, oral prednisone, oral Tamiflu, IV fluids, supportive oxygen. Wound care was consulted as this patient had a chronic wound on their left foot. Patient symptoms improved throughout hospital stay. Patient was noted to have decreasing white count but was asymptomatic and had no bleeding or bruising. Patient is on quetiapine and oxy carbamazepine which can be attributed to the decreased WBC count. Patient is scheduled for discharge today with oral prednisone for 3 more days and Tamiflu. She is advised to follow-up with his PCP and have a repeat CBC in 3 days. He is also advised to use his home oxygen. Final Diagnosis: #. Acute COPD exacerbation #. Influenza pneumonia #. Sepsis secondary to above #. Acute hypoxic respiratory failure secondary to above #. Diabetes with hyperglycemia #. Asthma #. GERD #. Hyperlipidemia #. Hypertension #. Osteoarthritis #. Sleep apnea #. Bipolar disorder #. Depression #. Hypothyroidism Physical examination: Vital signs reviewed General: non toxic, no distress Derm: no unusual rashes/lesions, warm Head: atraumatic, normocephalic, symmetric Eyes: EOMI, anicteric sclera, pupils equal round reactive to light ENT: Nose and ears atraumatic Neck: No cervical lymphadenopathy, trachea midline, supple Mouth: no lip lesion, mucus membranes moist Cardiovascular: S1S2 reg, no murmur Lungs: CTA bilateral, no rhonchi, no rales, no accessory muscle use Abdominal: soft, nondistended, nontender to palpation, no guarding Ext: muscle strength 5 out of 5 in all 4 extremities grossly, no gross muscle atrophy, no contractures, positive dorsalis pedis pulse bilateral, no edema, amputated fifth left toe with chronic wound dressing clean and dry with no discharge or erythema of surrounding skin, venous stasis dermatitis on bilateral lower extremities Neuro: CN II-XI grossly intact, no gross focal neuro deficits Psych: Alert, oriented, appropriate affect and mood A total of 38 minutes of time were spent preparing this complex discharge summary. Patient was discharged on 09/22/2024 at 1333. I have seen and evaluated the patient today. Discussed with the resident and agree with the residents finding and plan as documented in the resident's note. Changes highlighted in blue font. Patient Condition at Discharge: Stable Plan - Discharge Summary Discharge Rx Participant: Yes New Discharge Prescriptions: New predniSONE [Deltasone] 40 mg PO DAILY #6 tab Oseltamivir [Tamiflu] 75 mg PO Q12HR #7 cap Continue QUEtiapine [SEROquel] 800 mg PO HS DULoxetine HCL [Cymbalta] 60 mg PO BID Levothyroxine Sodium [Synthroid] 150 mcg PO DAILY Atorvastatin [Lipitor] 20 mg PO DAILY rOPINIRole HCL [Requip] 5 mg PO HS Omeprazole [PriLOSEC] 20 mg PO HS Famotidine 20 mg PO DAILY Pregabalin [Lyrica] 200 mg PO BID Albuterol Sulfate [Ventolin HFA] 2 puff INHALATION RT-QID PRN PRN Reason: Shortness Of Breath Insulin Degludec [Tresiba Flextouch U-200 Pen] 40 units SQ HS LORazepam [Ativan] 1 mg PO HS LORazepam [Ativan] 2 mg PO BID@0700,1200 OXcarbazepine [Trileptal] 300 mg PO BID oxyCODONE-APAP 10-325MG [Percocet 10-325 mg] 1 tab PO QID OXcarbazepine [Trileptal] 150 mg PO BID Semaglutide [Ozempic] 2 mg SQ WEEKLY Pioglitazone [Actos] 15 mg PO DAILY Discharge Medication List DULoxetine HCL [Cymbalta] 60 mg PO BID 12/05/13 [History] QUEtiapine [SEROquel] 800 mg PO HS 12/05/13 [History] Atorvastatin [Lipitor] 20 mg PO DAILY 09/11/16 [History] Levothyroxine Sodium [Synthroid] 150 mcg PO DAILY 09/11/16 [History] rOPINIRole HCL [Requip] 5 mg PO HS 07/08/19 [History] Omeprazole [PriLOSEC] 20 mg PO HS 08/09/19 [History] Famotidine 20 mg PO DAILY 01/21/23 [History] OXcarbazepine [Trileptal] 150 mg PO BID 04/06/23 [History] Pregabalin [Lyrica] 200 mg PO BID 02/04/24 [History] Semaglutide [Ozempic] 2 mg SQ WEEKLY 02/04/24 [History] Albuterol Sulfate [Ventolin HFA] 2 puff INHALATION RT-QID PRN 09/21/24 [History] Insulin Degludec [Tresiba Flextouch U-200 Pen] 40 units SQ HS 09/21/24 [History] LORazepam [Ativan] 1 mg PO HS 09/21/24 [History] LORazepam [Ativan] 2 mg PO BID@0700,1200 09/21/24 [History] OXcarbazepine [Trileptal] 300 mg PO BID 09/21/24 [History] Pioglitazone [Actos] 15 mg PO DAILY 09/21/24 [History] oxyCODONE-APAP 10-325MG [Percocet 10-325 mg] 1 tab PO QID 09/21/24 [History] Oseltamivir [Tamiflu] 75 mg PO Q12HR #7 cap 09/22/24 [Rx] predniSONE [Deltasone] 40 mg PO DAILY #6 tab 09/22/24 [Rx] Follow up Appointment(s)/Referral(s): [facility] [NON-STAFF] - As Needed (oxygen ) Faith Olivera MD [Primary Care Provider] - 10/04/24 3:15 pm Ambulatory/Diagnostic Orders: Complete Blood Count w/diff [LAB.AMB] Time Frame: 3 Days, Location: None Selected Patient Instructions/Handouts: Influenza (DC) Activity/Diet/Wound Care/Special Instructions: Please see your PCP. Discharge Disposition: HOME WITH HOME HEALTH SERVICES
== END 2024-09-22 15:30 | disposition home or self-care (01) | DRG 871 ==
LOC: EC 05:09 → 6NMEDSUR 07:05 → OBSVTOIN 07:24 → 4SSUR 08:17
PROVIDERS: ADMIT Internal Medicine; ATTEND Internal Medicine
DX: A41.89 Other specified sepsis (principal); J10.00 Influenza due to other identified influenza virus with unspecified type of pneumonia; J96.01 Acute respiratory failure with hypoxia; Z99.81 Dependence on supplemental oxygen; J44.0 Chronic obstructive pulmonary disease with (acute) lower respiratory infection; E11.42 Type 2 diabetes mellitus with diabetic polyneuropathy; F31.9 Bipolar disorder, unspecified; E03.9 Hypothyroidism, unspecified; I10 Essential (primary) hypertension; G25.81 Restless legs syndrome; J44.1 Chronic obstructive pulmonary disease with (acute) exacerbation; E11.610 Type 2 diabetes mellitus with diabetic neuropathic arthropathy; E11.621 Type 2 diabetes mellitus with foot ulcer; E11.622 Type 2 diabetes mellitus with other skin ulcer; E11.65 Type 2 diabetes mellitus with hyperglycemia; L89.522 Pressure ulcer of left ankle, stage 2; L97.522 Non-pressure chronic ulcer of other part of left foot with fat layer exposed; Z79.4 Long term (current) use of insulin; Z11.52 Encounter for screening for COVID-19; E78.5 Hyperlipidemia, unspecified; F90.9 Attention-deficit hyperactivity disorder, unspecified type; G47.30 Sleep apnea, unspecified; K21.9 Gastro-esophageal reflux disease without esophagitis; M19.90 Unspecified osteoarthritis, unspecified site; T25.422A Corrosion of unspecified degree of left foot, initial encounter; Z20.828 Contact with and (suspected) exposure to other viral communicable diseases; Z79.84 Long term (current) use of oral hypoglycemic drugs; Z79.890 Hormone replacement therapy; Z79.899 Other long term (current) drug therapy; Z82.49 Family history of ischemic heart disease and other diseases of the circulatory system; Z86.0100 Personal history of colon polyps, unspecified; Z86.14 Personal history of Methicillin resistant Staphylococcus aureus infection; Z86.16 Personal history of COVID-19; Z87.442 Personal history of urinary calculi; Z88.6 Allergy status to analgesic agent; Z88.8 Allergy status to other drugs, medicaments and biological substances
CPT/HCPCS: 36415; 71046; 80048; 80053; 83036; 83605; 83880; 84145; 84484; 85025; 85610; 85730; 87040; 87449; 87636; 93005; 94640; 96361; 96365; 96366; 96372; 99285

== ENCOUNTER 2024-09-26 15:09 | Emergency (ER) | payer MEDICARE, OTHER ==
[2024-09-26 15:41] VITALS: BP 132/78; PULSE 91; RESP 20; TEMP 97.8
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
--- NOTE | 2024-09-26 16:38 | XR ---
EXAMINATION TYPE: XR chest 2V DATE OF EXAM: 09/26/2024 4:30 PM COMPARISON: Chest radiographs from 09/21/2024. CLINICAL INDICATION: Male, 59 years old with history of difficulty breathing; TECHNIQUE: XR chest 2V Frontal and lateral views of the chest. FINDINGS: Lungs/Pleura: There is no evidence of pleural effusion, focal consolidation, or pneumothorax. Pulmonary vascularity: Unremarkable. Heart/mediastinum: Cardiomediastinal silhouette is unremarkable. Musculoskeletal: No acute osseous pathology. IMPRESSION: Right lower lobe airspace opacities could relate to developing pneumonia. [facility], , 09/26/2024 4:36 PM
== END 2024-09-26 20:13 | disposition left against medical advice (07) ==
LOC: EC 15:09
DX: R06.02 Shortness of breath (principal); F17.200 Nicotine dependence, unspecified, uncomplicated; Z88.8 Allergy status to other drugs, medicaments and biological substances; Z88.6 Allergy status to analgesic agent; Z53.29 Procedure and treatment not carried out because of patient's decision for other reasons
CPT/HCPCS: 71046; 93005; 99285

== ENCOUNTER → 2024-10-14 | Outpatient (CLI) | payer MEDICARE, OTHER ==
[2024-10-14 21:04] LABS: ALT 25 U/L (10-49); AST 15 U/L (14-35); Albumin 3.9 g/dL (3.8-4.9); Alkaline Phosphatase 132 U/L (41-126); Blood Urea Nitrogen 15.9 mg/dL (9.0-27.0); Calcium 9.2 mg/dL (8.7-10.3); Carbon Dioxide 30.3 mmol/L (21.6-31.8); Chloride 101 mmol/L (96-109); Chol/HDL Ratio 3.69 Ratio; Globulin 2.6 g/dL (1.6-3.3); Glucose 160 mg/dL (70-110); LDL Cholesterol,Calculated 82.6 mg/dL (0.0-131.0); Potassium 4.5 mmol/L (3.5-5.5); Sodium 139 mmol/L (135-145); T4, Free (Free Thyroxine) 1.09 ng/dL (0.80-1.80); Total Bilirubin 0.3 mg/dL (0.3-1.2); Total Protein 6.5 g/dL (6.2-8.2)
== END | disposition home or self-care (01) ==
LOC: LABWHC1 14:25
PROVIDERS: ATTEND Internal Medicine
DX: E11.65 Type 2 diabetes mellitus with hyperglycemia (principal); E03.9 Hypothyroidism, unspecified; Z79.4 Long term (current) use of insulin
CPT/HCPCS: 36415; 80053; 80061; 82043; 82570; 83036; 84439; 84443

== ENCOUNTER → 2024-10-14 | Outpatient (CLI) | payer MEDICARE, OTHER ==
--- NOTE | 2024-10-14 15:24 | US ---
EXAMINATION TYPE: US arterial LE single level DATE OF EXAM: 10/14/2024 2:18 PM COMPARISONS: 01/09/2015 CLINICAL INDICATION: Male, 59 years old with history of [id number] PAIN IN LEFT FOOT; TECHNIQUE: Systolic pressures were taken of the upper and lower extremity arteries with ankle-brachia l indices and toe brachial indices calculated bilaterally. History of: Smoker: Yes Hypertension: Yes Diabetic: Yes Hyperlipidemia: Yes TIA/CVA: No Previous Vascular Surgery: No CAD: No KS: No Vascular Ulcers: Left Claudication: Yes Gangrene: No FINDINGS: Doppler Waveforms: Right: Biphasic Left: Biphasic Pulse Volume Recording: Pressure Gradients: Brachial Artery systolic pressure: Right: 125 Left: 125 Posterior Tibial artery systolic pressure: Right: 131 Left: 88 Dorsalis Pedis artery systolic pressure: Right: 136 Left: 86 Toe artery systolic pressure: Right: 110 Left: 102 Ankle-Brachial Indices: Right: 1.09 Left: 0.70 Toe Brachial Indices: Right: 0.88 Left: 0.82 (Normal > 0.6; Mild 0.35 - 0.59, Moderate 0.12 - 0.34, Severe <0.12) IMPRESSION: 1. No significant stenosis by ultrasound. [facility], , 10/14/2024 3:21 PM
== END | disposition home or self-care (01) ==
LOC: RADUSWWP 13:22
PROVIDERS: ATTEND Orthopaedic Surgery Foot and Ankle Surgery
DX: M79.672 Pain in left foot (principal)
CPT/HCPCS: 93923